=== PATIENT | female | born 1975 | race African-American/Black ===

== ENCOUNTER 2018-02-06 16:27 | Emergency (ER) | payer SELFPAY ==
--- NOTE | 2018-02-06 17:41 | RAD ---
RIGHT FOOT THREE VIEWS: 02/06/18 HISTORY: Foot pain after injury. Calcaneal spurs are present. There is no signs of fracture or dislocation. IMPRESSION: No evidence of fracture. POS: [facility]
--- NOTE | 2018-02-06 17:42 | RAD ---
RIGHT KNEE FOUR VIEWS: 02/06/18 HISTORY: Knee injury. There are arthritic changes in the knee. There is degenerative spur formation and some mild medial co mpartment narrowing. There is also some mild patellofemoral spur formation. There is no signs of fra cture. IMPRESSION: No evidence of acute injury. Moderate arthritic changes. POS: [facility]
== END 2018-02-06 18:49 | disposition left against medical advice (07) ==
LOC: ERS 16:27
DX: Z53.21 Procedure and treatment not carried out due to patient leaving prior to being seen by health care provider (principal)

== ENCOUNTER 2018-03-31 23:28 | Emergency (ER) | payer SELFPAY ==
[2018-04-01 00:18] LABS: #Eosinphils 0.2 thou/uL (0.0-0.7); #Lymphocytes 2.7 thou/uL (1.20-3.40); #Monocytes 0.3 thou/uL (0.11-0.59); %Basophils 0.6 % (0.0-1.0); %Eosinophils 2.8 % (0.0-10.0); %Lymphocytes 32.6 % (21.0-51.0); %Monocytes 3.2 % (0.0-10.0); %Neutrophils 60.9 % (42.0-75.0); Hemoglobin 11.7 g/dL (12.0-16.0); Mean Corpuscular HGB CONC 30.9 g/dL (32.0-36.0); Mean Corpuscular Hemoglobin 23.3 pg (27.0-31.0); Mean Corpuscular Volume 75.4 fL (78.0-98.0); Mean Platelet Volume 11.5 fL (7.4-10.4); Platelet Count 216 thou/uL (130-400); RBC Distribution Width 15.9 % (11.5-14.5); Red Blood Cell (RBC) Count 5.02 mill/uL (4.20-5.40); White Blood Cell (WBC) Count 8.2 thou/uL (4.8-10.8)
[2018-04-01] MEDS ORDERED: Nitroglycerin 2% Ointment 1 INCH/1 GM Packet ONE (00:24)
[2018-04-01] MEDS ORDERED: Furosemide 40 MG/4 ML VIAL ONE (00:24)
[2018-04-01 00:40] LABS: ALT (SGPT) 13 U/L (8-55); AST (SGOT) 15 U/L (5-34); Albumin 3.5 g/dL (3.5-5.0); Alkaline Phosphatase 70 U/L (40-150); Anion Gap 13 mmol/L (10-20); BUN (Urea Nitrogen) 16 mg/dL (7.0-18.7); Bilirubin, Total 0.2 mg/dL (0.2-1.2); CK (CPK) 105 U/L (29-168); Calc. Creatinine Clearance 0 mL/min (70-130); Calcium 8.9 mg/dL (7.8-10.44); Carbon Dioxide 23 mmol/L (22-29); Chloride 108 mmol/L (98-107); Estimated GFR-MDRD Greater than 90; Globulin 3.5 g/dL (2.4-3.5); Glucose 127 mg/dL (70-105); Lipase 37 U/L (8-78); Potassium 3.7 mmol/L (3.5-5.1); Sodium 140 mmol/L (136-145)
[2018-04-01 00:42] LABS: CKMB 1.4 ng/mL (0-6.6); Troponin I Less than 0.010 ng/mL (< 0.028)
--- NOTE | 2018-04-01 07:10 | RAD ---
AP VIEW CHEST: 03/31/2018 HISTORY: Dyspnea. Shortness of breath. COMPARISON: 01/29/2017 FINDINGS: AP view chest demonstrates mild cardiomegaly. Mild pulmonary vascular congestion is seen. No eviden ce of effusions, pneumonia, or pneumothorax is seen. IMPRESSION: Cardiomegaly and pulmonary vascular congestion; otherwise, unremarkable anterior-posterior view chest . POS: [facility]
--- NOTE | 2018-04-04 11:33 | EKG ---
Test Reason : SOB Blood Pressure : / mmHG Vent. Rate : 059 BPM Atrial Rate : 059 BPM P-R Int : 172 ms QRS Dur : 112 ms QT Int : 450 ms P-R-T Axes : 028 -20 054 degrees QTc Int : 445 ms Sinus bradycardia Cannot rule out Anterior infarct , age undetermined Abnormal ECG Confirmed by ROSALVA SETHI, DOMINIQUE ([id number]), photographic editor JUSTYNA PICKENS ([id number]) on 04/04/2018 11:32:56 AM Referred By: Confirmed By:DOMINIQUE BLACKWELL MD
== END 2018-04-01 01:18 | disposition home or self-care (01) ==
LOC: ERS 23:28
DX: I11.0 Hypertensive heart disease with heart failure (principal); I50.9 Heart failure, unspecified; J44.9 Chronic obstructive pulmonary disease, unspecified; F17.210 Nicotine dependence, cigarettes, uncomplicated
CPT/HCPCS: 36415; 71045; 80053; 82550; 82553; 83690; 83880; 84484; 85025; 85379; 93005; 96374; J1940

== ENCOUNTER 2018-06-08 22:49 | Observation (INO) | payer SELFPAY ==
--- NOTE | 2018-06-08 23:24 | RAD ---
FRONTAL RADIOGRAPH CHEST: 06/08/2018 HISTORY: Chest pain. COMPARISON: 03/31/2018 FINDINGS: The lungs are clear. The heart and mediastinal contour is unremarkable. IMPRESSION: No acute findings. POS: [facility]
[2018-06-08 23:51] LABS: Hemoglobin 12.7 g/dL (12.0-16.0); Mean Corpuscular HGB CONC 30.8 g/dL (32.0-36.0); Mean Corpuscular Hemoglobin 22.1 pg (27.0-31.0); Mean Corpuscular Volume 71.9 fL (78.0-98.0); Mean Platelet Volume 11.8 fL (7.4-10.4); Platelet Count 268 thou/uL (130-400); RBC Distribution Width 16.5 % (11.5-14.5); Red Blood Cell (RBC) Count 5.73 mill/uL (4.20-5.40); White Blood Cell (WBC) Count 12.5 thou/uL (4.8-10.8)
[2018-06-09 00:06] LABS: #Eosinphils 0.3 thou/uL (0.0-0.7); #Lymphocytes 3.5 thou/uL (1.20-3.40); #Monocytes 0.6 thou/uL (0.11-0.59); #Neutrophils 8.1 thou/uL (1.40-6.50); %Basophils 0.4 % (0.0-1.0); %Eosinophils 2.2 % (0.0-10.0); %Lymphocytes 28.1 % (21.0-51.0); %Monocytes 4.6 % (0.0-10.0); %Neutrophils 64.8 % (42.0-75.0); Anisocytosis SLIGHT = 6-15 cells (100X) (0-5/hpf); Hypochromia SLIGHT = 6-15 cells (100X) (0-5/hpf); Large Platelets SLIGHT; MDiff Complete? YES; Microcytosis SLIGHT = 6-15 cells (100X) (0-5/hpf); PLT Morphology Comment Appears Adequate
[2018-06-09] MEDS ORDERED: Morphine 4 MG/ML VIAL ONE (00:08)
[2018-06-09] MEDS ORDERED: Nitroglycerin 0.4 MG TAB (25 Tab Bottle) ONE (00:08)
[2018-06-09 00:09] LABS: ALT (SGPT) 16 U/L (8-55); AST (SGOT) 15 U/L (5-34); Albumin 3.9 g/dL (3.5-5.0); Alkaline Phosphatase 74 U/L (40-150); Anion Gap 13 mmol/L (10-20); BUN (Urea Nitrogen) 21 mg/dL (7.0-18.7); Bilirubin, Total 0.3 mg/dL (0.2-1.2); Calc. Creatinine Clearance 0 mL/min (70-130); Calcium 9.6 mg/dL (7.8-10.44); Carbon Dioxide 24 mmol/L (22-29); Chloride 106 mmol/L (98-107); Estimated GFR-MDRD Greater than 90; Globulin 4.5 g/dL (2.4-3.5); Glucose 122 mg/dL (70-105); Potassium 4.1 mmol/L (3.5-5.1); Protein, Total 8.4 g/dL (6.0-8.3); Sodium 139 mmol/L (136-145)
[2018-06-09 00:13] LABS: CKMB 0.7 ng/mL (0-6.6); Troponin I Less than 0.010 ng/mL (< 0.028)
[2018-06-09 03:16] LABS: Troponin I Less than 0.010 ng/mL (< 0.028)
[2018-06-09] MEDS ORDERED: Acetaminophen 500 MG TAB ONE (04:12)
[2018-06-09] MEDS ORDERED: Labetalol HCl 100 MG/20 ML VIAL ONE (05:40)
[2018-06-09 06:38] LABS: Troponin I Less than 0.010 ng/mL (< 0.028)
[2018-06-09] MEDS ORDERED: Nitroglycerin 0.4 MG TAB (25 Tab Bottle) PO PRN (09:09)
[2018-06-09] MEDS ORDERED: Ondansetron ODT 4 MG TAB PO PRN (09:09)
[2018-06-09 09:46] LABS: Cardiac Risk 3.2 (Less than 4.5)
[2018-06-09] MEDS ORDERED: Enoxaparin Sodium 40 MG/0.4 ML SYRINGE ONE (09:51)
[2018-06-09] MEDS ORDERED: HYDROcodone/Acetaminophen 5/325 mg Tablet ONE (09:51)
[2018-06-09] MEDS ORDERED: Aspirin 325 MG TAB ONE (09:51)
[2018-06-09] MEDS ORDERED: Ondansetron ODT 4 MG TAB ONE (09:51)
[2018-06-09] MEDS ORDERED: Famotidine 20 MG TAB ONE (09:52)
--- NOTE | 2018-06-09 09:52 | CT ---
CTA THORAX WITH CONTRAST: (Computed Tomographic Angiography, chest(noncoronary) with contrast material, and image postprocessin g) (PE protocol) DATE: 06-09-18 TIME: 9:30 a.m. HISTORY: 43-year-old female with dyspnea and chest pain. TECHNIQUE: IV injection of iodinated contrast: Isovue Scan acquisition timing attempted to coincide with iodinated contrast bolus reaching maximal density in pulmonary arteries. 3D MIP reconstructions. FINDINGS: IV contrast is greatest in the thoracic aorta, where there is no aneurysm of dissection. Unfortunatel y, there is almost no IV contrast in the pulmonary arteries. The visualized lung mckeon are grossly c lear. No pleural effusion or pneumothorax. Borderline or mild cardiomegaly. No pericardial effusion. No mediastinal or hilar lymphadenopathy. IMPRESSION: Nondiagnostic for pulmonary thromboembolism due to missed timing of IV contrast bolus and scanning. elan POS: [facility]
--- NOTE | 2018-06-09 10:10 | HP ---
PRIMARY CARE PHYSICIAN: Through the [facility]. CHIEF COMPLAINT: Chest pain. HISTORY OF PRESENT ILLNESS: Ms. Rodriguez is a very pleasant 43-year-old female who has a history of hypertension. She was in her usual state of health until yesterday around 3:30 when she began having pain in the left side of her chest. She says she had just laid down. This was at rest. She says it was like a squeezing, stabbing pain that went down her right arm and her right side. She also noted some shortness of breath as well, but no nausea, no vomiting, no diaphoresis. She says that she could barely walk from her room to her bathroom without becoming extremely short of breath and as noted extreme dyspnea on exertion. She also noted some swelling in her legs which started approximately actually on Friday and she noticed more swelling and a little bit more pain in the right leg than on the left. She says that when she came to the emergency room, they gave her some nitroglycerin, which helped relieve her symptoms and currently she now just has some soreness in her right side of her chest. She denies any cough or congestion. She denies any heartburn or reflux symptoms. She denies any heavy lifting or straining. REVIEW OF SYSTEMS: All systems were reviewed and are negative except for that mentioned in the history of present illness. PAST MEDICAL HISTORY: Hypertension and iron deficiency anemia. PAST SURGICAL HISTORY: She has had a and a cholecystectomy. ALLERGIES: BACTRIM, BENADRYL and PHENERGAN. SOCIAL HISTORY: She is . She has 3 children. She occasionally smokes. Denies any alcohol use. FAMILY HISTORY: Significant for cerebrovascular disease in her mother. MEDICATIONS: Furosemide 80 mg daily and lisinopril, but she is not sure of the dose. PHYSICAL EXAMINATION: GENERAL: She is alert and oriented. She appears to be in no acute distress. She is well-developed, well-nourished. She is morbidly obese. VITAL SIGNS: Blood pressure was initially 184/129, currently 157/94, heart rate 70, respiratory rate of 20, temperature is 98.6. HEENT: Her pupils are equal, round, and reactive. Extraocular muscles are intact. Her sclerae are anicteric. Throat; there is no erythema, no exudates. NECK: No adenopathy, no bruits. LUNGS: Clear to auscultation. There is no wheezing, no rales, no rhonchi. CARDIOVASCULAR: She has a normal S1 and S2. No S3 or S4. No murmurs, clicks or rubs. ABDOMEN: Obese, it is soft, it is nontender, nondistended. Positive for bowel sounds. There is no rebound, no guarding, no organomegaly. EXTREMITIES: There is no edema. NEUROLOGICALLY: Her exam is grossly nonfocal with her muscle strength being 5/ 5 in both her upper and lower extremities and her cranial nerves are intact. SKIN AND INTEGUMENT: There are no skin changes, no rash. LABORATORY AND X-RAY FINDINGS: Her EKG by my reading is sinus rhythm, the rate is 87. There was some voltage criteria for LVH. This is by my reading. She also had a chest x-ray, her heart size was normal. There was no evidence of any increase in pulmonary vascular markings. No effusion, also by my reading. Lab results; sodium was 139, potassium 4.1, chloride is 106, CO2 is 24, BUN of 21, creatinine 0.82, glucose is 122. Troponin is less than 0.010. White blood cell count is 12.5, hemoglobin 12.7, hematocrit is 41.2, platelet count was 268. ASSESSMENT AND PLAN: This is a pleasant 43-year-old female who presents to the emergency room with atypical chest pain. She says it was on the right side and it was more or less a squeezing pain. The most salient feature was the shortness of breath that was associated with it and given this and her obesity as well as general sedentary lifestyle, we will go ahead and get a CT angiogram to rule out pulmonary embolism first and if this is negative, we will get a regular exercise stress test. It is also noted that she has had a nuclear stress test a few years back for similar symptoms. Will check a lipid panel as well and further recommendations based on these results. MARBIN
[2018-06-09] MEDS ORDERED: ISOVUE-370 76%-LOCM 1 ML ONE (12:00)
[2018-06-09 13:01] VITALS: BMI 64.8
[2018-06-09] MEDS ORDERED: hydrALAZINE 20 MG/ML VIAL SLOW IVP PRN (13:50)
[2018-06-09] MEDS: Aspirin 325 MG TAB PO SCH (14:03)
[2018-06-09] MEDS: Famotidine 20 MG TAB PO SCH ×3 (14:03→20:43)
[2018-06-09] MEDS: Enoxaparin Sodium 40 MG/0.4 ML SYRINGE SC SCH (14:03)
[2018-06-09 14:04] LABS: #Eosinphils 0.2 thou/uL (0.0-0.7); #Lymphocytes 2.9 thou/uL (1.20-3.40); #Monocytes 0.5 thou/uL (0.11-0.59); #Neutrophils 6.5 thou/uL (1.40-6.50); %Basophils 0.2 % (0.0-1.0); %Eosinophils 1.5 % (0.0-10.0); %Lymphocytes 28.5 % (21.0-51.0); %Monocytes 4.6 % (0.0-10.0); %Neutrophils 65.2 % (42.0-75.0); Hemoglobin 12.5 g/dL (12.0-16.0); Mean Corpuscular HGB CONC 31.8 g/dL (32.0-36.0); Mean Corpuscular Volume 72.3 fL (78.0-98.0); Mean Platelet Volume 11.9 fL (7.4-10.4); Platelet Count 252 thou/uL (130-400); RBC Distribution Width 16.4 % (11.5-14.5); Red Blood Cell (RBC) Count 5.46 mill/uL (4.20-5.40)
[2018-06-09 14:08] LABS: BHCG - Serum Negative (NEGATIVE); Pregs Control Background? CLEAR/WHITE (CLR/WHITE); Pregs Control Bar Appear? YES (CONTROL BAR)
[2018-06-09 14:09] LABS: PTT 28.6 SEC (22.9-36.1); Prothrombin Time 13.3 SEC (12.0-14.7)
[2018-06-09] MEDS: Nitroglycerin 2% Ointment 1 INCH/1 GM Packet TOP SCH ×3 (14:14→20:45)
[2018-06-09 14:19] LABS: CKMB 0.5 ng/mL (0-6.6); Troponin I Less than 0.010 ng/mL (< 0.028)
[2018-06-09] MEDS: Acetaminophen 325 MG TAB PO PRN ×2 (14:34→20:31)
[2018-06-09 14:36] LABS: CK (CPK) 60 U/L (29-168)
[2018-06-09 14:38] LABS: ALT (SGPT) 84 U/L (8-55); AST (SGOT) 113 U/L (5-34); Albumin 3.9 g/dL (3.5-5.0); Alkaline Phosphatase 116 U/L (40-150); Anion Gap 16 mmol/L (10-20); BUN (Urea Nitrogen) 20 mg/dL (7.0-18.7); Bilirubin, Total 0.8 mg/dL (0.2-1.2); Calc. Creatinine Clearance 273 mL/min (70-130); Calcium 9.1 mg/dL (7.8-10.44); Carbon Dioxide 21 mmol/L (22-29); Chloride 104 mmol/L (98-107); Estimated GFR-MDRD Greater than 90; Globulin 3.9 g/dL (2.4-3.5); Glucose 100 mg/dL (70-105); Potassium 4.2 mmol/L (3.5-5.1); Protein, Total 7.8 g/dL (6.0-8.3); Sodium 137 mmol/L (136-145)
[2018-06-09] MEDS ORDERED: Regadenoson 0.4 MG/5 ML SYRINGE ONE (15:25)
[2018-06-09 15:47] LABS: Pregnancy Test - Urine (BHCG) Negative (Negative); Pregu Control Background? CLEAR/WHITE (CLR/WHITE); Pregu Control Bar Appear? YES (CONTROL BAR)
[2018-06-09 15:54] LABS: Amphetamine Detected (NotDetected); Barbiturates Screen Not Detected (NotDetected); Benzodiazepine Screen Not Detected (NotDetected); Cocaine Metabolite Screen Not Detected (NotDetected); Medtox Control Line Valid? VALID (VALID); Medtox Reader # READER 1; Methadone Not Detected (NotDetected); Methamphetamine Detected (NotDetected); Opiate Screen Detected (NotDetected); Oxycodone Screen Not Detected (NotDetected); Phencyclidine (PCP) Not Detected (NotDetected); THC/Cannabinoid Screen Not Detected (NotDetected); Tricyclic Screen Not Detected (NotDetected)
--- NOTE | 2018-06-09 17:22 | EKG ---
Test Reason : Blood Pressure : / mmHG Vent. Rate : 066 BPM Atrial Rate : 066 BPM P-R Int : 176 ms QRS Dur : 112 ms QT Int : 464 ms P-R-T Axes : 038 -16 028 degrees QTc Int : 486 ms Normal sinus rhythm Prolonged QT Abnormal ECG When compared with ECG of 08-JUN-2018 22:54, (Unconfirmed) No significant change was found Confirmed by PAUL SETHI, . SAlex ([id number]) on 06/09/2018 5:21:28 PM Referred By: TARIK Confirmed By:DR. Rufina MILLER MD
--- NOTE | 2018-06-09 17:49 | CT ---
CT BRAIN WITHOUT CONTRAST: Date: 06/09/18 HISTORY: Headache, new onset slurred speech. FINDINGS: Comparison made with exam of 10/30/16. No evidence of acute infarct, hemorrhage, midline shift, or abnormal extra-axial fluid collections ar e seen. The ventricular size is normal and the basilar cisterns are patent. The bony calvarium is int act. The visualized paranasal sinuses and mastoid air cells are well aerated. 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 IMPRESSION: No CT evidence of acute intracranial process. Report called over the phone to ABDULKADIR Finnegan, at 1404 hours. CODE CR. POS: [facility]
--- NOTE | 2018-06-09 18:08 | PDOC.EVN ---
Event Note - Event Note Event Note: Patient had the sudden onset of slurred speech, and decreased level of consciousness NIH was reported to be a 7- a code green was called, due to possible stroke alert. A stat CT scan of the brain was performed which was negative. While in CT-scan her NIH returned to 0. I came to see her later this afternoon, and she is completely back to baseline. Carotid dopplers, and Echo have been ordered. Will also monitor and adjust her blood pressure medications as needed. Will re-evaluate in the AM.
--- NOTE | 2018-06-09 19:04 | ULT ---
CAROTID ULTRASOUND WITH ESPARZA SCALE AND DOPPLER DUPLEX COLOR FLOW IMAGING SPECTRAL ANALYSIS PERFORMED: 06/09/18 CLINICAL INDICATION: TIA. FINDINGS: There is minimal atherosclerotic calcification of the carotid arteries. PEAK SYSTOLIC VELOCITY (CM/S): Right CCA 108 Left CCA 143 Right ICA 83 Left ICA 82 There is antegrade flow within the visualized bilateral vertebral arteries. IMPRESSION: 1. No hemodynamically significant stenosis of the right internal carotid artery. 2. No hemodynamically significant stenosis of the left internal carotid artery. POS: [facility]
[2018-06-10] MEDS: Acetaminophen 325 MG TAB PO PRN (02:04)
[2018-06-10] MEDS: HYDROcodone/Acetaminophen 5/325 mg Tablet PO PRN ×2 (03:37→10:45)
[2018-06-10] MEDS: Nitroglycerin 2% Ointment 1 INCH/1 GM Packet TOP SCH (04:23)
[2018-06-10 06:20] LABS: #Basophils 0.1 thou/uL (0.0-0.2); #Eosinphils 0.3 thou/uL (0.0-0.7); #Lymphocytes 2.9 thou/uL (1.20-3.40); #Monocytes 0.4 thou/uL (0.11-0.59); %Basophils 0.6 % (0.0-1.0); %Eosinophils 2.9 % (0.0-10.0); %Lymphocytes 30.1 % (21.0-51.0); %Monocytes 4.5 % (0.0-10.0); Hemoglobin 11.5 g/dL (12.0-16.0); Mean Corpuscular HGB CONC 31.3 g/dL (32.0-36.0); Mean Corpuscular Hemoglobin 22.7 pg (27.0-31.0); Mean Corpuscular Volume 72.6 fL (78.0-98.0); Mean Platelet Volume 11.8 fL (7.4-10.4); Platelet Count 229 thou/uL (130-400); RBC Distribution Width 16.4 % (11.5-14.5); Red Blood Cell (RBC) Count 5.06 mill/uL (4.20-5.40); White Blood Cell (WBC) Count 9.7 thou/uL (4.8-10.8)
[2018-06-10 06:30] LABS: Anion Gap 12 mmol/L (10-20); BUN (Urea Nitrogen) 18 mg/dL (7.0-18.7); Calc. Creatinine Clearance 283 mL/min (70-130); Calcium 9.2 mg/dL (7.8-10.44); Carbon Dioxide 24 mmol/L (22-29); Chloride 106 mmol/L (98-107); Estimated GFR-MDRD Greater than 90; Glucose 103 mg/dL (70-105); Potassium 3.8 mmol/L (3.5-5.1); Sodium 138 mmol/L (136-145)
[2018-06-10] MEDS ORDERED: Lisinopril 10 MG TAB PO SCH (09:00)
[2018-06-10] MEDS: Enoxaparin Sodium 40 MG/0.4 ML SYRINGE SC SCH (10:44)
[2018-06-10] MEDS: Aspirin 325 MG TAB PO SCH (10:45)
[2018-06-10] MEDS: Famotidine 20 MG TAB PO SCH (10:45)
--- NOTE | 2018-06-10 11:23 | PDOC.PN ---
- Subjective Encounter Start Date: 06/10/18 Encounter Start Time: 11:21 Ms. Rodriguez was seen today in follow-up of chest pain. She does not have any new complaints this morning. - Objective Resuscitation Status - Order Detail: 06/09/18 12:13 Resuscitation Status Routine Resuscitation Status: FULL: Full Resuscitation Discussed with: per prior order MAR Reviewed: Yes Vital Signs & Weight: Vital Signs (12 hours) Temp Pulse Resp BP Pulse Ox 06/10/18 07:53 98.0 F 74 16 124/72 100 06/10/18 06:00 96 06/10/18 03:39 98.4 F 78 16 119/68 97 06/09/18 23:56 98.2 F 62 18 134/61 96 Weight Weight 413 lb 4.8 oz I&O: 06/09/18 06/10/18 06/11/18 06:59 06:59 06:59 Intake Total 660 Output Total 300 Balance 360 Result Diagrams: 06/10/18 05:57 06/10/18 05:57 Additional Labs: Accuchecks 06/09/18 06/09/18 17:21 13:33 POC Glucose 115 H 100 Phys Exam - Physical Examination HEENT: PERRLA Respiratory: no wheezing, no rales, no rhonchi, clear to auscultation bilateral Cardiovascular: RRR, no significant murmur, no rub Gastrointestinal: soft, non-tender, no distention, positive bowel sounds Musculoskeletal: no edema Dx/Plan (1) Chest pain Code(s): R07.9 - CHEST PAIN, UNSPECIFIED Status: Acute (2) Hypertension Code(s): I10 - ESSENTIAL (PRIMARY) HYPERTENSION Status: Chronic (3) Morbid (severe) obesity due to excess calories Code(s): E66.01 - MORBID (SEVERE) OBESITY DUE TO EXCESS CALORIES Status: Chronic - Plan * Chest pain- likely non-cardiac * ? TIA- will add simvastatin, and low dose aspirin * Discussed healthy lifestyle and weight loss * Stable for discharge home.
[2018-06-10] MEDS ORDERED: Ferrous Sulfate 325 MG TAB PO SCH (12:00)
[2018-06-10 12:17] VITALS: BP 137/76; TEMP 98.2
--- NOTE | 2018-06-10 12:50 | NM ---
CARDIAC SPECT WITH EF AND WALL MOTION: HISTORY: A 43-year-old female with a history of chest pain, history of congestive heart failure, COPD, hyperte nsion, and smoking history. A LexiScan sestamibi study is performed. The patient was injected with 32.0 mCi Technetium 99m sestamibi intravenously for stress images and t he patient was injected with 33.0 mCi Technetium 99m sestamibi intravenously for resting images. Multiple SPECT images in the short axis, vertical long axis, and horizontal long axis demonstrate no scan evidence for infarct or ischemia. TID 0.76. LHR 0.41. EDV 153 mL. Ejection fraction is 64%. MYOCARDIAL PERFUSION WALL MOTION: Wall motion is unremarkable. IMPRESSION: End-diastolic volume 153 mL. No scan evidence for overt infarct or ischemia. POS: [facility]
--- NOTE | 2018-06-10 14:17 | STRESS ---
Acquisition Time: 2018-06-10 08:56:59 Total Exercise Time: 00:01:00 Test Indications: CHEST PAIN Medications: Protocol: LEXISCAN Max HR: 108 BPM 61% of Pred: 176 BPM Max BP: 124/098 mmHG Max Work Load: 1.0 METS THE PATIENT WAS INJECTED WITH LEXISCAN. SHE DID NOT DEVELOP CHEST PAIN. THERE WAS NO SIGNIFICANT ST DEPRESSION. AWAIT NUCLEAR IMAGES FOR DEFINITIVE DIAGNOSIS. Confirmed by JUANCARLOS BLAS ([id number]), city editor CRISTOFER ORTIZ ([id number]) on 06/10/2018 2:16:36 PM Referred By: MD Shivam HILL Confirmed By:JUANCARLOS BLAS
--- NOTE | 2018-06-10 14:36 | DIS ---
DATE OF ADMISSION: 06/09/2018 DATE OF DISCHARGE: 06/10/2018 PRIMARY CARE: Through the [facility]. DISCHARGE DISPOSITION: Home. PRIMARY DISCHARGE DIAGNOSES: 1. Chest pain, probable noncardiac. 2. Hypertension. 3. Morbid obesity. 4. Iron deficiency anemia. DISCHARGE MEDICATIONS: Include: 1. Aspirin 81 mg p.o. daily. 2. Simvastatin 10 mg q.h.s. 3. Iron sulfate 325 mg q.i.d. 4. Lisinopril 10 mg daily. 5. Lasix 80 mg daily. PROCEDURES DONE DURING ADMISSION: The patient had a CT angiogram of the chest. It was nondiagnostic for PE due to mistiming of the IV bolus and scanning, but no other abnormalities were seen such as, there was no pericardial effusion. No mediastinal or hilar adenopathy. No infiltrates. The patient had a nuclear stress test, which was negative for any reversible ischemia. She had a CT scan of the brain, which showed no evidence of any acute intracranial process. She had bilateral carotid Dopplers showing no evidence of any hemodynamic stenosis and an echocardiogram showing moderate concentric left ventricular hypertrophy and the ejection fraction was estimated at 55% to 60%. CODE STATUS: Full code. ALLERGIES: TO DIPHENHYDRAMINE, PROMETHAZINE, SULFA, AND TRIMETHOPRIM. HOSPITAL COURSE: Ms. Rodriguez is a very pleasant 43-year-old female, who presented to the emergency room with complaints of chest pain. She stated that it was right-sided, and it was present at rest, and was associated with some dyspnea. She had a negative D-dimer, but we went ahead and tried a CTA. Unfortunately, the IV contrast bolus had poor timing, but with a negative D-dimer, this essentially rules out pulmonary embolism. We were able to determine there were no other obvious structural abnormalities in the chest. Nuclear stress test was negative. The patient had an episode of dysarthria during her hospital stay and for this reason, a Aleida Doss was called and stat CT scan was obtained. This was negative. Carotid Dopplers and echo were also unremarkable, except for some mild concentric LVH on the echo. For this reason, we will continue her on the low-dose aspirin and add a statin to her regimen, and have close outpatient followup with her primary care physician. We also discussed healthy lifestyle and weight loss, as the patient's BMI was 64.7, and she is 5 feet 7 inches and 413 pounds, and she voiced understanding. Job ID: [id number]
[2018-06-11] MEDS ORDERED: Furosemide 40 MG TAB PO SCH (09:00)
--- NOTE | 2018-06-13 16:19 | EKG ---
Test Reason : Blood Pressure : / mmHG Vent. Rate : 087 BPM Atrial Rate : 087 BPM P-R Int : 168 ms QRS Dur : 104 ms QT Int : 388 ms P-R-T Axes : 033 -26 059 degrees QTc Int : 466 ms Normal sinus rhythm Voltage criteria for left ventricular hypertrophy Abnormal ECG Confirmed by CATE ANN ([id number]), photography editor JAYLEEN OVIEDO ([id number]) on 06/13/2018 4:18:59 PM Referred By: Confirmed By:CATE ANN
== END 2018-06-10 13:16 | disposition home or self-care (01) ==
LOC: ERS 22:49 → ERHOLD 06-09 00:56 → 2SW 06-09 11:59
PROVIDERS: ADMIT Hospitalist; ATTEND Hospitalist
DX: R07.89 Other chest pain (principal); I10 Essential (primary) hypertension; D50.9 Iron deficiency anemia, unspecified; F17.200 Nicotine dependence, unspecified, uncomplicated; R47.1 Dysarthria and anarthria; E66.01 Morbid (severe) obesity due to excess calories; Z68.44 Body mass index [BMI] 60.0-69.9, adult; Z79.899 Other long term (current) drug therapy; Z88.2 Allergy status to sulfonamides; Z88.8 Allergy status to other drugs, medicaments and biological substances
CPT/HCPCS: 36415; 36416; 70450; 71045; 71275; 78452; 80048; 80053; 80061; 80306; 81025; 82553; 83690; 83880; 84484; 84703; 85025; 85379; 85610; 85730; 90471; 90686; 93005; 93010; 93017; 93306; 93880; 94760; 96372; 96374; 96375; 99406; A9500; G0008; G0378; J1650; J2270; J2785; Q0162

== ENCOUNTER 2018-07-29 14:36 | Emergency (ER) | payer SELFPAY ==
[2018-07-29] MEDS ORDERED: Ketorolac Tromethamine 30 MG/ML VIAL ONE (16:25)
== END 2018-07-29 16:41 | disposition home or self-care (01) ==
LOC: ERS 14:36
DX: M54.41 Lumbago with sciatica, right side (principal); D64.9 Anemia, unspecified; J44.9 Chronic obstructive pulmonary disease, unspecified; I11.0 Hypertensive heart disease with heart failure; I50.9 Heart failure, unspecified; F17.210 Nicotine dependence, cigarettes, uncomplicated; Z79.899 Other long term (current) drug therapy; Z79.82 Long term (current) use of aspirin
CPT/HCPCS: 96372; J1885

== ENCOUNTER 2018-08-29 14:22 | Observation (INO) | payer SELFPAY ==
[2018-08-29 14:53] LABS: Hemoglobin 11.5 g/dL (12.0-16.0); Mean Corpuscular HGB CONC 30.5 g/dL (32.0-36.0); Mean Corpuscular Hemoglobin 22.7 pg (27.0-31.0); Mean Corpuscular Volume 74.4 fL (78.0-98.0); Mean Platelet Volume 12.2 fL (7.4-10.4); Platelet Count 217 thou/uL (130-400); RBC Distribution Width 16.7 % (11.5-14.5); Red Blood Cell (RBC) Count 5.07 mill/uL (4.20-5.40); White Blood Cell (WBC) Count 9.2 thou/uL (4.8-10.8)
[2018-08-29] MEDS ORDERED: Nitroglycerin 2% Ointment 1 INCH/1 GM Packet ONE (15:12)
[2018-08-29 15:15] LABS: ALT (SGPT) 15 U/L (8-55); AST (SGOT) 16 U/L (5-34); Albumin 3.7 g/dL (3.5-5.0); Alkaline Phosphatase 74 U/L (40-150); Anion Gap 11 mmol/L (10-20); BUN (Urea Nitrogen) 15 mg/dL (7.0-18.7); Bilirubin, Total 0.5 mg/dL (0.2-1.2); CK (CPK) 244 U/L (29-168); Calc. Creatinine Clearance 0 mL/min (70-130); Carbon Dioxide 24 mmol/L (22-29); Chloride 107 mmol/L (98-107); Estimated GFR-MDRD Greater than 90; Globulin 3.7 g/dL (2.4-3.5); Glucose 115 mg/dL (70-105); Potassium 3.3 mmol/L (3.5-5.1); Protein, Total 7.4 g/dL (6.0-8.3); Sodium 139 mmol/L (136-145)
[2018-08-29 15:22] LABS: #Basophils 0.1 thou/uL (0.0-0.2); #Eosinphils 0.3 thou/uL (0.0-0.7); #Lymphocytes 2.6 thou/uL (1.20-3.40); #Monocytes 0.4 thou/uL (0.11-0.59); #Neutrophils 5.8 thou/uL (1.40-6.50); %Basophils 0.6 % (0.0-1.0); %Eosinophils 2.9 % (0.0-10.0); %Lymphocytes 28.6 % (21.0-51.0); %Monocytes 4.4 % (0.0-10.0); %Neutrophils 63.5 % (42.0-75.0); Anisocytosis SLIGHT = 6-15 cells (100X) (0-5/hpf); Hypochromia SLIGHT = 6-15 cells (100X) (0-5/hpf); Large Platelets SLIGHT; MDiff Complete? YES; Microcytosis SLIGHT = 6-15 cells (100X) (0-5/hpf); Platelet Morphology Comment Appears Adequate
--- NOTE | 2018-08-29 16:00 | RAD ---
PORTABLE AP CHEST X-RAY: 08/29/18 HISTORY: Chest pain with difficulty breathing. COMPARISON: 06/08/18. FINDINGS: The cardiac silhouette is magnified by projection but does appear mildly enlarged on this exam. Pulmo nary vasculature is within normal limits. The lungs are clear. The osseous structures are intact. IMPRESSION: 1. Mild cardiomegaly. 2. No acute cardiopulmonary process. POS: [facility]
[2018-08-29] MEDS ORDERED: Acetaminophen 500 MG TAB ONE (17:02)
[2018-08-29] MEDS ORDERED: Morphine 4 MG/ML VIAL ONE (18:45)
[2018-08-29] MEDS ORDERED: Ondansetron ODT 4 MG TAB PO PRN (20:17)
[2018-08-29] MEDS ORDERED: Ondansetron PF 4 MG/2 ML Vial IVP PRN (20:17)
[2018-08-29] MEDS ORDERED: Simvastatin 5 MG TAB PO SCH (21:00)
[2018-08-29] MEDS ORDERED: Aspirin Chewable 81 MG TAB ONE (21:04)
[2018-08-29 21:23] VITALS: BMI 64.3
[2018-08-29] MEDS: Ferrous Sulfate 325 MG TAB PO SCH (21:39)
[2018-08-29] MEDS: Acetaminophen 325 MG TAB PO PRN (21:39)
[2018-08-29] MEDS ORDERED: cloNIDine 0.1 MG TAB PO PRN (22:52)
[2018-08-30] MEDS: traMADol HCl 50 MG TAB PO PRN ×2 (02:23→09:25)
[2018-08-30] MEDS: Acetaminophen 325 MG TAB PO PRN (05:52)
--- NOTE | 2018-08-30 06:02 | HP ---
PRIMARY CARE DOCTOR: Sonia Gallagher NP CODE STATUS: Full code. TIME OF EVALUATION: 07:50 p.m. CHIEF COMPLAINT: Chest pain. HISTORY OF PRESENT ILLNESS: A 43-year-old female patient with past medical history of obesity, came to the hospital after having chest pain that started around 11 a.m. with no clear triggers, no alleviating factors. The patient has a history of CHF and she also reported some associated shortness of breath and bilateral leg edema, symptoms were severe, pressure-like, substernal. REVIEW OF SYSTEMS: CONSTITUTIONAL: No fever, chills, or generalized weakness. RESPIRATORY: No cough, sputum production, or shortness of breath. CARDIOVASCULAR: palpitation. GASTROINTESTINAL: No nausea, no vomiting, diarrhea, or abdominal pain. MAILER APPRENTICE: No dizziness, headache, or feeling lightheaded. GENITOURINARY: No burning on urination. EXTREMITIES: The patient has bilateral lower extremities edema. All other systems were reviewed and negative except for the findings mentioned above. PAST MEDICAL HISTORY: Positive for COPD, anemia, hypertension, fluid overload, CHF. PAST SURGICAL HISTORY: History of tubal ligation, cholecystectomy, . PSYCH HISTORY: No previous psych history. SOCIAL HISTORY: No alcohol, no drugs, no tobacco, does not smoke cigarettes. KNOWN ALLERGIES: To Benadryl, Phenergan, and sulfa. REPORTED MEDICATIONS: Unknown. PHYSICAL EXAMINATION: VITAL SIGNS: On presentation, blood pressure 136/77 with heart rate of 71, respiratory rate was 18, temperature 98.5, pain 8/10, oxygen saturation 97% on room air. GENERAL APPEARANCE: The patient is alert, oriented, mild distress due to pain. The patient is morbidly obese. HEENT: Eyes, normal conjunctivae. Moist oral mucosa. Anicteric. No JVD. RESPIRATORY: Bilateral air entry. No rales. No wheezing. Symmetric expansion. CARDIOVASCULAR: Normal rate, regular rhythm. No murmurs. No gallop. Bilateral leg edema. ABDOMEN: Soft. Normal bowel sounds. MUSCULOSKELETAL: Baseline range of motion and strength. No tenderness. SKIN: Warm, intact. No pallor. No rash. No redness. Peripheral pulses are present. Capillary refill seems to be intact. NEURO: No evidence of any new focal weakness. Baseline speech. Cranial nerves seems to be intact. PSYCH: The patient has good mood. No anxiety. Optimal judgment. DIAGNOSTIC STUDIES: EKG; normal sinus rhythm with a rate of 70, AR 182, QRS 114, minimum voltage criteria for LVH. The chest x-ray was reviewed. The patient has mild cardiomegaly, no acute cardiopulmonary process. LABORATORY DATA: Labs are reviewed by myself. White count 9.2, hemoglobin 11.5, MCV 74, platelet count 217. Sodium 139, potassium 3.3, chloride 107, carbon dioxide 24, anion gap 11, BUN 15, creatinine 0.74, GFR greater than 90, glucose 115, calcium 9, total bilirubin 0.5, AST 16, ALT 15, alkaline phosphatase 74. CK 244. Troponin was negative x3. Beta-natriuretic peptide was 33.2. Albumin 3.7, globulin 3.7, albumin to globulin ratio is 1.0. ASSESSMENT AND PLAN: The patient will be placed in the hospital with following medical problems: 1. Chest pain, rule out acute coronary syndrome. Troponin has been negative. We will monitor on tele. The patient has reportedly had a stress test that was negative. On recent records, the test was done on 06/09/2018, likely acute coronary syndrome, we will rule out any other etiology for chest pain including pulmonary embolism. The patient is morbidly obese, we will do Doppler, we will do D-dimer. If positive, we will proceed with CT angio/V/Q depending on possibilities of the test. The patient is morbidly obese. 2. Hypokalemia, potassium 3.3. This is mild, we will monitor, we will reconcile. We will replace electrolytes as needed. 3. Hyperglycemia, 115, could be due to acute physical distress or poor oral glucose tolerance. 4. Obesity. Advised to lose weight. 5. Deep venous thrombosis prophylaxis. Job ID: [id number]
[2018-08-30 06:13] LABS: #Basophils 0.1 thou/uL (0.0-0.2); #Eosinphils 0.3 thou/uL (0.0-0.7); #Lymphocytes 2.5 thou/uL (1.20-3.40); #Monocytes 0.3 thou/uL (0.11-0.59); #Neutrophils 4.2 thou/uL (1.40-6.50); %Basophils 0.8 % (0.0-1.0); %Eosinophils 3.5 % (0.0-10.0); %Lymphocytes 33.8 % (21.0-51.0); %Monocytes 4.7 % (0.0-10.0); %Neutrophils 57.3 % (42.0-75.0); Hemoglobin 10.8 g/dL (12.0-16.0); Mean Corpuscular HGB CONC 31.1 g/dL (32.0-36.0); Mean Corpuscular Hemoglobin 23.5 pg (27.0-31.0); Mean Corpuscular Volume 75.5 fL (78.0-98.0); Mean Platelet Volume 12.3 fL (7.4-10.4); Platelet Count 192 thou/uL (130-400); RBC Distribution Width 16.6 % (11.5-14.5); White Blood Cell (WBC) Count 7.4 thou/uL (4.8-10.8)
[2018-08-30 06:39] LABS: Anion Gap 10 mmol/L (10-20); BUN (Urea Nitrogen) 16 mg/dL (7.0-18.7); Calc. Creatinine Clearance 264 mL/min (70-130); Calcium 8.6 mg/dL (7.8-10.44); Carbon Dioxide 25 mmol/L (22-29); Chloride 107 mmol/L (98-107); Estimated GFR-MDRD Greater than 90; Glucose 99 mg/dL (70-105); Potassium 3.4 mmol/L (3.5-5.1); Sodium 139 mmol/L (136-145)
[2018-08-30] MEDS ORDERED: Lisinopril 10 MG TAB PO SCH (09:00)
[2018-08-30] MEDS ORDERED: Furosemide 40 MG/4 ML VIAL SLOW IVP SCH (09:00)
[2018-08-30] MEDS ORDERED: Aspirin Chewable 81 MG TAB PO SCH (09:00)
[2018-08-30] MEDS ORDERED: Enoxaparin Sodium 40 MG/0.4 ML SYRINGE SC SCH (09:00)
[2018-08-30] MEDS: Ferrous Sulfate 325 MG TAB PO SCH ×2 (09:18→11:42)
--- NOTE | 2018-08-30 10:08 | ULT ---
ULTRASOUND WITH DOPPLER DUPLEX VENOUS LOWER EXTREMITY BILATERAL: CPT: 36936 ICD-10-PCS: B54D INDICATION: Bilateral lower extremity pain and edema. TECHNIQUE: Color flow Doppler, spectral waveform analysis of pulsed Doppler, and pérez-scale imaging with rhianna alma and augmentation, were used to evaluate the bilateral common femoral, femoral, popliteal, golf course keeper ior tibial, and superficial femoral, veins; and the proximal portions of the profunda femoral and gre ater saphenous, veins. FINDINGS: There is appropriate compressibility and flow within the imaged deep vein system of the bilateral low er extremities. IMPRESSION: No deep venous thrombosis. POS: [facility]
--- NOTE | 2018-08-30 13:06 | PDOC.PN ---
- Subjective Encounter Start Date: 08/30/18 Encounter Start Time: 13:04 Ms. Rodriguez was seen today in follow-up of chest pain. Today she says she feels better. She denies any difficulty breathing, and no longer has any chest pain. She does however complain of pain in her right leg, along the bell, especially when she puts weight on her leg. - Objective Resuscitation Status - Order Detail: 08/29/18 20:17 Resuscitation Status Routine Resuscitation Status: FULL: Full Resuscitation MAR Reviewed: Yes Vital Signs & Weight: Vital Signs (12 hours) Temp Pulse Resp BP BP Pulse Ox 08/30/18 11:00 97.5 F L 63 20 128/95 H 96 08/30/18 09:19 122/88 08/30/18 07:58 97.5 F L 54 L 20 122/88 96 08/30/18 05:30 98.1 F 59 L 17 111/71 97 Weight Weight 410 lb 9.6 oz I&O: 08/29/18 08/30/18 08/31/18 06:59 06:59 06:59 Intake Total 350 Balance 350 Result Diagrams: 08/30/18 04:57 08/30/18 04:57 Phys Exam - Physical Examination HEENT: PERRLA Respiratory: no wheezing, no rales, no rhonchi, clear to auscultation bilateral Cardiovascular: RRR, no significant murmur, no rub Gastrointestinal: soft, non-tender, positive bowel sounds Musculoskeletal: no edema, pulses present + tenderness over the anterior leg, no swelling or erythema, no induration no warmth Dx/Plan (1) Chest pain Code(s): R07.9 - CHEST PAIN, UNSPECIFIED Status: Acute (2) Hypertension Code(s): I10 - ESSENTIAL (PRIMARY) HYPERTENSION Status: Chronic (3) Morbid (severe) obesity due to excess calories Code(s): E66.01 - MORBID (SEVERE) OBESITY DUE TO EXCESS CALORIES Status: Chronic - Plan * Chest pain- non-cardiac- recent stress test was negative. She also has had a CTA in the recent past similar complaints which was also negative. Her D.Dimer on this admission was negative. She was volume overloaded, and this could be the reason for the chest pain * HTN- blood pressure is controlled * Morbid Obesity- unchanged * Leg pain- ? etiology- venous doppler was negative, await X-ray results. * I suspect she may have some Obesity Hypoventilation syndrome as the cause for retaining fluid- I have recommended that she obtain an outpatient .
--- NOTE | 2018-08-30 13:11 | RAD ---
RIGHT TIBIA AND FIBULA 2 VIEW SERIES: (3 VIEWS PROVIDED) DATE: 08/30/18 INDICATINO: Right leg pain. FINDINGS: There is no fracture or dislocation of the tibia or fibula of the right lower extremity identified. T here are vascular calcifications. Prominence of regional soft tissues is seen. IMPRESSION: 1. No discrete fracture of the right leg osseous structures. 2. Vascular calcifications. POS: [facility]
[2018-08-30 15:59] VITALS: BP 123/73; TEMP 98
--- NOTE | 2018-08-30 15:59 | DIS ---
DATE OF ADMISSION: 08/29/2018 DATE OF DISCHARGE: 08/30/2018 PRIMARY CARE PHYSICIAN: Sonia Gallagher. DISCHARGE DISPOSITION: Home. PRIMARY DISCHARGE DIAGNOSES: 1. Chest pain, noncardiac. 2. Morbid obesity. The patient is 5 feet and 7 inches, 410 pounds, and has a BMI of 64.3. 3. Hypertension. 4. Congestive heart failure with preserved ejection fraction. 5. Probable undiagnosed sleep apnea. 6. Right lower leg pain, unknown etiology. PROCEDURES: Procedures done during the admission: The patient had a lower extremity venous Doppler, which was negative for DVT; and the patient had an x-ray of the right tibia fibula, which was negative. DISCHARGE MEDICATIONS: Include; 1. Simvastatin 10 mg at bedtime. 2. Iron sulfate 325 mg q.i.d. 3. Lisinopril 10 mg daily. 4. Lasix 80 mg a day. 5. Fluoxetine 20 mg daily. 6. Aspirin 81 mg a day. CODE STATUS: Full code. ALLERGIES: DIPHENHYDRAMINE AND PROMETHAZINE WELL SULFA AND TRIMETHOPRIM. HOSPITAL COURSE: Ms. Rodriguez is a very pleasant 43-year-old female, who presented to the emergency room complaining of chest pain. She also noted some shortness of breath and lower extremity edema. She was placed in observation and was ruled out with serial cardiac enzymes, which were negative. She had recently been hospitalized for similar complaints, and at that time, she had had an echocardiogram as well as a nuclear stress test and a CT angiogram of the chest, all of which were negative. On this admission, a D-dimer was done and this was normal. Therefore, it is unlikely that this represents a pulmonary embolism. It was noted on her chest x-ray that she had cardiomegaly with increased pulmonary vascular markings. She was given IV Lasix and diuresed well overnight, and I suspect that her chest pain could be related to volume overload. She is also morbidly obese and I suspect she could have some undiagnosed sleep apnea. This could lead to fluid retention. I explained this to the patient and suggested that she should have an outpatient sleep study done as this maybe one of the reasons that she has an exacerbation of the congestive heart failure. Her mother and grandmother both have sleep apnea, therefore, she is at high risk. She voiced understanding. Her daughter was at the bedside as well and voiced understanding. After being diuresed, her symptoms have improved. She did complain of some pain in her right leg, mainly with weightbearing. A lower extremity venous Doppler was done, which was negative for DVT. We also did an x-ray of her tibia as she said that the pain was more or less along the bell and this was negative. It is possible that the pain could be related to her weight or muscle strain, and can be further worked up in the outpatient setting. She is to follow up with Sonia Gallagher in approximately 1 week. Job ID: [id number]
== END 2018-08-30 16:55 | disposition home or self-care (01) ==
LOC: ERS 14:22 → 2SW 18:56
PROVIDERS: ADMIT Internal Medicine; ATTEND Internal Medicine
DX: R07.89 Other chest pain (principal); I11.0 Hypertensive heart disease with heart failure; I50.30 Unspecified diastolic (congestive) heart failure; M79.661 Pain in right lower leg; J44.9 Chronic obstructive pulmonary disease, unspecified; E87.6 Hypokalemia; R73.9 Hyperglycemia, unspecified; E66.01 Morbid (severe) obesity due to excess calories; Z68.44 Body mass index [BMI] 60.0-69.9, adult; Z79.82 Long term (current) use of aspirin; Z79.899 Other long term (current) drug therapy; Z88.2 Allergy status to sulfonamides; Z88.8 Allergy status to other drugs, medicaments and biological substances
CPT/HCPCS: 36415; 71045; 80048; 80053; 82550; 83880; 84484; 85025; 85379; 93005; 93970; 96372; 96374; 96375; G0378; J1650; J1940; J2270

== ENCOUNTER 2018-10-04 12:15 | Emergency (ER) | payer SELFPAY ==
[2018-10-04 12:53] LABS: Hemoglobin 12.2 g/dL (12.0-16.0); Mean Corpuscular HGB CONC 31.3 g/dL (32.0-36.0); Mean Corpuscular Volume 73.6 fL (78.0-98.0); Mean Platelet Volume 12.1 fL (7.4-10.4); Platelet Count 228 thou/uL (130-400); RBC Distribution Width 16.3 % (11.5-14.5); Red Blood Cell (RBC) Count 5.29 mill/uL (4.20-5.40); White Blood Cell (WBC) Count 10.6 thou/uL (4.8-10.8)
[2018-10-04] MEDS ORDERED: Lidocaine Viscous Sol 2% 15 ml UD Cup ONE (13:03)
[2018-10-04] MEDS ORDERED: Mag-Al 1200 mg/1200 mg/30 ML UDCUP ONE (13:03)
[2018-10-04 13:04] LABS: ALT (SGPT) 19 U/L (8-55); AST (SGOT) 18 U/L (5-34); Alkaline Phosphatase 80 U/L (40-150); Anion Gap 12 mmol/L (10-20); BUN (Urea Nitrogen) 11 mg/dL (7.0-18.7); Bilirubin, Total 0.9 mg/dL (0.2-1.2); Calc. Creatinine Clearance 0 mL/min (70-130); Calcium 9.5 mg/dL (7.8-10.44); Carbon Dioxide 26 mmol/L (22-29); Chloride 103 mmol/L (98-107); Estimated GFR-MDRD Greater than 90; Globulin 3.5 g/dL (2.4-3.5); Glucose 107 mg/dL (70-105); Lipase 22 U/L (8-78); Potassium 3.2 mmol/L (3.5-5.1); Protein, Total 7.5 g/dL (6.0-8.3); Sodium 138 mmol/L (136-145)
[2018-10-04 13:18] LABS: #Basophils 0.1 thou/uL (0.0-0.2); #Eosinphils 0.3 thou/uL (0.0-0.7); #Lymphocytes 2.5 thou/uL (1.20-3.40); #Monocytes 0.5 thou/uL (0.11-0.59); #Neutrophils 7.3 thou/uL (1.40-6.50); %Basophils 0.8 % (0.0-1.0); %Eosinophils 2.7 % (0.0-10.0); %Lymphocytes 23.2 % (21.0-51.0); %Monocytes 4.5 % (0.0-10.0); %Neutrophils 68.9 % (42.0-75.0); MDiff Complete? YES
[2018-10-04 13:19] LABS: Hypochromia SLIGHT = 6-15 cells (100X) (0-5/hpf); Microcytosis SLIGHT = 6-15 cells (100X) (0-5/hpf); Platelet Morphology Comment Appears Adequate; Polychromasia SLIGHT = 2-3 cells (100X) (0-2/hpf)
[2018-10-04] MEDS ORDERED: Ondansetron ODT 4 MG TAB ONE (13:23)
--- NOTE | 2018-10-04 13:58 | RAD ---
PORTABLE CHEST: DATE: 10/04/2018. PROVIDED CLINICAL HISTORY: Chest pain. FINDINGS: Comparison 08/29/2018. Evaluation is limited by patient body habitus. The cardiac silhouette appears enlarged. The lungs are hypoinflated but grossly clear. No pleural fluid or pneumothorax apparent. IMPRESSION: Limited study without evidence for an acute cardiopulmonary process. POS: [facility]
[2018-10-04 16:14] LABS: Troponin I Less than 0.010 ng/mL (< 0.028)
== END 2018-10-04 17:18 | disposition home or self-care (01) ==
LOC: ERS 12:15
DX: K21.9 Gastro-esophageal reflux disease without esophagitis (principal); J44.9 Chronic obstructive pulmonary disease, unspecified; D64.9 Anemia, unspecified; I11.0 Hypertensive heart disease with heart failure; I50.9 Heart failure, unspecified; F41.9 Anxiety disorder, unspecified; F32.9 Major depressive disorder, single episode, unspecified; F17.210 Nicotine dependence, cigarettes, uncomplicated; Z79.899 Other long term (current) drug therapy
CPT/HCPCS: 36415; 71045; 80053; 83690; 84484; 85025; 93005; Q0162

== ENCOUNTER 2018-11-20 22:14 | Emergency (ER) | payer SELFPAY ==
[2018-11-20 22:49] LABS: #Basophils 0.1 thou/uL (0.0-0.2); #Eosinphils 0.4 thou/uL (0.0-0.7); #Lymphocytes 3.1 thou/uL (1.20-3.40); #Monocytes 0.5 thou/uL (0.11-0.59); #Neutrophils 8.2 thou/uL (1.40-6.50); %Basophils 0.7 % (0.0-1.0); %Eosinophils 3.3 % (0.0-10.0); %Lymphocytes 25.2 % (21.0-51.0); %Monocytes 3.7 % (0.0-10.0); %Neutrophils 67.1 % (42.0-75.0); Hemoglobin 12.5 g/dL (12.0-16.0); Mean Corpuscular HGB CONC 31.1 g/dL (32.0-36.0); Mean Corpuscular Hemoglobin 22.8 pg (27.0-31.0); Mean Corpuscular Volume 73.4 fL (78.0-98.0); Mean Platelet Volume 11.9 fL (7.4-10.4); Platelet Count 250 thou/uL (130-400); RBC Distribution Width 16.4 % (11.5-14.5); Red Blood Cell (RBC) Count 5.49 mill/uL (4.20-5.40); White Blood Cell (WBC) Count 12.2 thou/uL (4.8-10.8)
--- NOTE | 2018-11-20 22:55 | RAD ---
Exam: Chest one view HISTORY:Chest pain Comparison: 10/04/2018 FINDINGS: Cardiac silhouette: Normal Pulmonary vessels: Normal Costophrenic angles: Clear LUNGS: No masses or consolidation. Pneumothorax: None Osseous abnormalities: None IMPRESSION: No acute cardiopulmonary process.
[2018-11-20 23:16] LABS: ALT (SGPT) 18 U/L (8-55); AST (SGOT) 16 U/L (5-34); Alkaline Phosphatase 73 U/L (40-150); Anion Gap 14 mmol/L (10-20); BUN (Urea Nitrogen) 14 mg/dL (7.0-18.7); Bilirubin, Total 0.4 mg/dL (0.2-1.2); CK (CPK) 138 U/L (29-168); Calc. Creatinine Clearance 0 mL/min (70-130); Calcium 9.6 mg/dL (7.8-10.44); Carbon Dioxide 24 mmol/L (22-29); Chloride 105 mmol/L (98-107); Estimated GFR-MDRD 86; Globulin 3.9 g/dL (2.4-3.5); Glucose 129 mg/dL (70-105); Potassium 3.4 mmol/L (3.5-5.1); Protein, Total 7.9 g/dL (6.0-8.3); Sodium 140 mmol/L (136-145)
[2018-11-20] MEDS ORDERED: Ondansetron ODT 4 MG TAB ONE (23:17)
[2018-11-20] MEDS ORDERED: Acetaminophen 500 MG TAB ONE (23:17)
[2018-11-20] MEDS ORDERED: Ketorolac Tromethamine 30 MG/ML VIAL ONE (23:17)
== END 2018-11-20 23:48 | disposition home or self-care (01) ==
LOC: ERS 22:14
DX: R07.9 Chest pain, unspecified (principal); D64.9 Anemia, unspecified; I50.9 Heart failure, unspecified; I11.0 Hypertensive heart disease with heart failure; F17.210 Nicotine dependence, cigarettes, uncomplicated; Z79.899 Other long term (current) drug therapy; Z79.82 Long term (current) use of aspirin
CPT/HCPCS: 36415; 71045; 80053; 82550; 84484; 85025; 93005; 94760; 96372; J1885; Q0162

== ENCOUNTER 2018-12-08 07:04 | Emergency (ER) | payer SELFPAY ==
[2018-12-08] MEDS ORDERED: Ibuprofen 800 MG TAB ONE (08:39)
--- NOTE | 2018-12-08 09:01 | ULT ---
EXAM: Left lower extremity venous duplex: Deep veins evaluated with color Doppler, spectral analysis, and compression. INDICATIONS: Left lower extremity pain and edema. FINDINGS: There is decreased acoustic penetration related to body habitus. This does reduce sensitivi ty of the evaluation. Deep veins interrogated include common femoral vein, femoral vein, popliteal vein, and posterior tibial vein. These veins show normal compression and blood flow. No evidence of D VT. IMPRESSION: Negative Left venous duplex exam.
== END 2018-12-08 09:18 | disposition home or self-care (01) ==
LOC: ERS 07:04
DX: M79.662 Pain in left lower leg (principal); D64.9 Anemia, unspecified; J44.9 Chronic obstructive pulmonary disease, unspecified; I11.0 Hypertensive heart disease with heart failure; I50.9 Heart failure, unspecified; F41.9 Anxiety disorder, unspecified; F32.9 Major depressive disorder, single episode, unspecified; F17.210 Nicotine dependence, cigarettes, uncomplicated; Z79.899 Other long term (current) drug therapy; Z79.82 Long term (current) use of aspirin

== ENCOUNTER 2018-12-13 23:36 | Emergency (ER) | payer SELFPAY ==
--- NOTE | 2018-12-14 08:23 | RAD ---
CHEST 1 VIEW: INDICATION: History of cough. COMPARISON: Prior exam dated 11/20/2018. FINDINGS: There are low lung volumes. Lungs are clear. No pleural effusion or pneumothorax is evident. No ac iroquois osseous abnormality is evident. IMPRESSION: No acute abnormality. POS: [facility]
== END 2018-12-14 00:49 | disposition home or self-care (01) ==
LOC: ERS 23:36
DX: R05 Cough (principal); I11.0 Hypertensive heart disease with heart failure; I50.9 Heart failure, unspecified; D64.9 Anemia, unspecified; J44.9 Chronic obstructive pulmonary disease, unspecified; F41.9 Anxiety disorder, unspecified; F17.210 Nicotine dependence, cigarettes, uncomplicated; F32.9 Major depressive disorder, single episode, unspecified
CPT/HCPCS: 71046; 93005

== ENCOUNTER 2018-12-23 08:52 | Emergency (ER) | payer SELFPAY | END 2018-12-23 10:08 | disposition home or self-care (01) | LOC: ERS 08:52 | DX: R05 Cough (principal); D64.9 Anemia, unspecified; I11.0 Hypertensive heart disease with heart failure; I50.9 Heart failure, unspecified; F41.9 Anxiety disorder, unspecified; F32.9 Major depressive disorder, single episode, unspecified; F17.210 Nicotine dependence, cigarettes, uncomplicated; J44.9 Chronic obstructive pulmonary disease, unspecified; Z79.51 Long term (current) use of inhaled steroids; Z79.899 Other long term (current) drug therapy | CPT/HCPCS: 99281 ==

== ENCOUNTER 2019-02-04 22:36 | Emergency (ER) | payer SELFPAY ==
[2019-02-04] MEDS ORDERED: Ketorolac Tromethamine 60 MG/2 ML VIAL ONE (23:35)
[2019-02-04] MEDS ORDERED: Lorazepam 2 MG/ML VIAL ONE (23:35)
== END 2019-02-05 00:01 | disposition home or self-care (01) ==
LOC: ERS 22:36
DX: M54.41 Lumbago with sciatica, right side (principal); D64.9 Anemia, unspecified; I11.0 Hypertensive heart disease with heart failure; I50.9 Heart failure, unspecified; F17.210 Nicotine dependence, cigarettes, uncomplicated
CPT/HCPCS: 96372; 99283; J1885; J2060

== ENCOUNTER 2019-02-14 15:38 | Emergency (ER) | payer SELFPAY ==
[2019-02-14] MEDS ORDERED: Acetaminophen 500 MG TAB ONE (17:10)
[2019-02-14] MEDS ORDERED: Ketorolac Tromethamine 30 MG/ML VIAL ONE (17:10)
[2019-02-14] MEDS ORDERED: Metoclopramide HCl 10 MG/2 ML VIAL ONE (17:11)
--- NOTE | 2019-02-14 17:33 | CT ---
BRAIN CT WITHOUT IV CONTRAST: History: Headache. Comparison: 06-09-18 FINDINGS: No mass or midline shift. No intra or extraaxial hemorrhage. Sinuses and mastoids are clear of acute process. IMPRESSION: No significant acute intracranial process. No mass or bleed. POS: [facility]
--- NOTE | 2019-02-14 18:38 | RAD ---
EXAM: RIGHT KNEE FOUR VIEWS: History: Right knee injury. Comparison: 02-06-18 FINDINGS: Patient's very large body habitus somewhat lowers the sensitivity of this study. There are some trico mpartment degenerative and arthrosis changes. No acute fracture, dislocation, or other acute process. IMPRESSION: Degenerative and osteoarthrosis changes. No fracture or dislocation. Very large body habitus. POS: [facility]
== END 2019-02-14 18:37 | disposition home or self-care (01) ==
LOC: ERS 15:38
DX: S83.91XA Sprain of unspecified site of right knee, initial encounter (principal); R51 Headache; I11.0 Hypertensive heart disease with heart failure; I50.9 Heart failure, unspecified; J44.9 Chronic obstructive pulmonary disease, unspecified; D64.9 Anemia, unspecified; F41.9 Anxiety disorder, unspecified; F32.9 Major depressive disorder, single episode, unspecified; F17.210 Nicotine dependence, cigarettes, uncomplicated; Z79.899 Other long term (current) drug therapy; W19.XXXA Unspecified fall, initial encounter
CPT/HCPCS: 70450; 96365; 96366; 96375; J1885; J2765

== ENCOUNTER 2019-04-06 11:41 | Emergency (ER) | payer SELFPAY ==
[~2019-04-06 11:41] MED LIST: ISOVUE-370 76%-LOCM 1 ML ONE
--- NOTE | 2019-04-06 11:59 | CT ---
Head CT without contrast 04/06/2019: COMPARISON: 02/14/2019 HISTORY: Stroke alert, altered mental status, nonverbal TECHNIQUE: Axial CT imaging at 5 mm intervals from vertex through skull base without contrast FINDINGS: Imaged paranasal sinuses and mastoid air cells well-aerated. No displaced calvarial fractur e. No intracranial hemorrhage, midline shift, mass effect, or ventricular enlargement. IMPRESSION: No acute findings. Results called to Dr. Westbrook at 11:55 AM 04/06/2019.
[2019-04-06 12:10] LABS: #Basophils 0.1 thou/uL (0.0-0.2); #Eosinphils 0.5 thou/uL (0.0-0.7); #Lymphocytes 3.3 thou/uL (1.20-3.40); #Monocytes 0.3 thou/uL (0.11-0.59); #Neutrophils 7.2 thou/uL (1.40-6.50); %Basophils 0.8 % (0.0-1.0); %Eosinophils 4.2 % (0.0-10.0); %Lymphocytes 28.8 % (21.0-51.0); %Monocytes 2.9 % (0.0-10.0); %Neutrophils 63.3 % (42.0-75.0); Hemoglobin 12.4 g/dL (12.0-16.0); Mean Corpuscular HGB CONC 31.9 g/dL (32.0-36.0); Mean Corpuscular Hemoglobin 23.4 pg (27.0-31.0); Mean Corpuscular Volume 73.2 fL (78.0-98.0); Mean Platelet Volume 12.1 fL (7.4-10.4); Platelet Count 233 thou/uL (130-400); White Blood Cell (WBC) Count 11.4 thou/uL (4.8-10.8)
[2019-04-06 12:11] LABS: PTT 27.9 SEC (22.9-36.1); Prothrombin Time 13.1 SEC (12.0-14.7)
[2019-04-06 12:21] LABS: ALT (SGPT) 16 U/L (8-55); AST (SGOT) 14 U/L (5-34); Albumin 3.9 g/dL (3.5-5.0); Alkaline Phosphatase 75 U/L (40-150); Anion Gap 11 mmol/L (10-20); BUN (Urea Nitrogen) 11 mg/dL (7.0-18.7); Bilirubin, Total 0.6 mg/dL (0.2-1.2); CK (CPK) 151 U/L (29-168); Calc. Creatinine Clearance 0 mL/min (70-130); Calcium 9.2 mg/dL (7.8-10.44); Carbon Dioxide 27 mmol/L (22-29); Chloride 103 mmol/L (98-107); Estimated GFR-MDRD 78; Globulin 3.8 g/dL (2.4-3.5); Glucose 96 mg/dL (70-105); Potassium 3.4 mmol/L (3.5-5.1); Protein, Total 7.7 g/dL (6.0-8.3); Sodium 138 mmol/L (136-145)
--- NOTE | 2019-04-06 12:23 | CT ---
CT angiogram head CT angiogram neck: 04/06/2019 COMPARISON: None HISTORY: Level 1 stroke alert, altered mental status, nonverbal patient TECHNIQUE: axial CT imaging at 1.25 mm intervals from skull base through vertex with IV contrast usin g CT angiogram protocol with coronal and sagittal 3-D reformatted imaging FINDINGS: Imaged lung apices grossly unremarkable. Body habitus limits detailed assessment at the level of the aortic arch. The origin of the left subcl levon artery, left vertebral artery, left common carotid artery, innominate artery, right subclavian artery, right common carotid artery, and right subclavian artery appears unremarkable. Limited assessment for aerodigestive tract lesion is unremarkable. The retroantral and parapharyngeal fat appears unremarkable. The parotid and submandibular glands appear unremarkable bilaterally. On the basis of NASCET criteria, there is no hemodynamically significant stenosis seen involving the common carotid artery or the internal carotid artery on either side. The distal common carotid arteries demonstrate a medialized retropharyngeal course bilaterally. Multiple mildly prominent nonenlarged posterior triangle lymph nodes are noted bilaterally. Mildly prominent but nonenlarged level 2 lymph nodes are noted bilaterally, left greater than right, measuring up to 9 mm in short axis. The vertebral arteries are patent. Left vertebral artery is dominant. The basilar artery and its branches appear patent. There is no saccular aneurysm, high-grade stenosis, or vascular occlusion involving the posterior cir culation. The A1 segment appears patent bilaterally as do the distal FLAQUITO branches. The M1 segment, the ICA bifurcation, the MCA bifurcation, and the distal MCA branches appear grossly unremarkable bilaterally. No central arterial occlusion, saccular aneurysm, or hemodynamically significant stenosis is seen involving the anterior circulation. No acute osseous abnormality. IMPRESSION: No acute findings on CT angiogram of head/neck. Incidental findings as detailed above. Dr. Westbrook made aware at 12:19 PM 04/06/2019.
[2019-04-06 12:24] LABS: Hypochromia SLIGHT = 6-15 cells (100X) (0-5/hpf); MDiff Complete? YES; Microcytosis SLIGHT = 6-15 cells (100X) (0-5/hpf); Ovalocytes SLIGHT = 2-5 cells (100X) (0-1/hpf); Platelet Morphology Comment Appears Adequate; Polychromasia SLIGHT = 2-3 cells (100X) (0-2/hpf)
[2019-04-06 13:03] LABS: Acetaminophen Less than 6.0 mcg/mL (10.0-30.0); Alcohol Less than 10 mg/dL (Less than 10); Salicylate Less than 8.0 mg/dL (15.0-30.0)
[2019-04-06] MEDS ORDERED: hydrALAZINE 20 MG/ML VIAL ONE (13:32)
[2019-04-06 13:59] LABS: Bilirubin Negative (Negative); Blood, Urine Negative (Negative); Clarity Clear (Clear); Glucose, Urine (Dipstick) Normal (Negative); Leukocyte Negative Leu/uL (Negative); Nitrite Negative (Negative); Protein, Urine (Dipstick) Negative (Neg-Trace); Urobilinogen Normal mg/dL (Less than 2)
[2019-04-06 14:01] LABS: Pregnancy Test - Urine (BHCG) Negative (Negative); Pregu Control Background? CLEAR/WHITE (CLR/WHITE); Pregu Control Bar Appear? YES (CONTROL BAR); Specific Gravity 1.025 (1.002-1.036)
[2019-04-06 14:08] LABS: Amphetamine Detected (NotDetected); Barbiturates Screen Not Detected (NotDetected); Benzodiazepine Screen Detected (NotDetected); Cocaine Metabolite Screen Not Detected (NotDetected); Medtox Control Line Valid? VALID (VALID); Medtox Reader # READER 4; Methadone Not Detected (NotDetected); Methamphetamine Detected (NotDetected); Opiate Screen Not Detected (NotDetected); Oxycodone Screen Not Detected (NotDetected); Phencyclidine (PCP) Not Detected (NotDetected); THC/Cannabinoid Screen Not Detected (NotDetected); Tricyclic Screen Not Detected (NotDetected)
== END 2019-04-06 16:07 | disposition home or self-care (01) ==
LOC: ERS 11:41
DX: R07.9 Chest pain, unspecified (principal); R41.82 Altered mental status, unspecified; I11.0 Hypertensive heart disease with heart failure; I50.9 Heart failure, unspecified; E66.9 Obesity, unspecified; J44.9 Chronic obstructive pulmonary disease, unspecified; F41.9 Anxiety disorder, unspecified; F32.9 Major depressive disorder, single episode, unspecified; F17.210 Nicotine dependence, cigarettes, uncomplicated; Z79.899 Other long term (current) drug therapy
CPT/HCPCS: 36415; 36416; 51701; 70450; 70496; 70498; 80053; 80306; 80307; 81003; 81025; 82550; 84484; 85025; 85610; 85730; 93005; 94760; 96374; A4353; J0360; Q9966

== ENCOUNTER 2019-04-24 22:29 | Emergency (ER) | payer SELFPAY ==
[2019-04-24] MEDS ORDERED: Metoclopramide HCl 10 MG/2 ML VIAL ONE (23:37)
[2019-04-24] MEDS ORDERED: Magnesium 2 GM/50 ML BAG (IN WATER) ONE (23:37)
[2019-04-24 23:41] LABS: #Basophils 0.1 thou/uL (0.0-0.2); #Eosinphils 0.2 thou/uL (0.0-0.7); #Lymphocytes 2.9 thou/uL (1.20-3.40); #Monocytes 0.3 thou/uL (0.11-0.59); #Neutrophils 7.1 thou/uL (1.40-6.50); %Basophils 0.5 % (0.0-1.0); %Eosinophils 1.8 % (0.0-10.0); %Lymphocytes 27.2 % (21.0-51.0); %Monocytes 2.9 % (0.0-10.0); %Neutrophils 67.6 % (42.0-75.0); Hemoglobin 13.3 g/dL (12.0-16.0); Mean Corpuscular HGB CONC 31.5 g/dL (32.0-36.0); Mean Corpuscular Hemoglobin 23.5 pg (27.0-31.0); Mean Corpuscular Volume 74.4 fL (78.0-98.0); Platelet Count 222 thou/uL (130-400); RBC Distribution Width 17.6 % (11.5-14.5); Red Blood Cell (RBC) Count 5.67 mill/uL (4.20-5.40); White Blood Cell (WBC) Count 10.5 thou/uL (4.8-10.8)
[2019-04-24 23:49] LABS: BHCG - Serum Negative (NEGATIVE); Pregs Control Background? CLEAR/WHITE (CLR/WHITE); Pregs Control Bar Appear? YES (CONTROL BAR)
[2019-04-24 23:53] LABS: ALT (SGPT) 16 U/L (8-55); AST (SGOT) 21 U/L (5-34); Albumin 4.3 g/dL (3.5-5.0); Alkaline Phosphatase 79 U/L (40-110); Anion Gap 16 mmol/L (10-20); BUN (Urea Nitrogen) 12 mg/dL (7.0-18.7); Bilirubin, Total 0.6 mg/dL (0.2-1.2); Calc. Creatinine Clearance 0 mL/min (70-130); Calcium 9.4 mg/dL (7.8-10.44); Carbon Dioxide 23 mmol/L (22-29); Chloride 103 mmol/L (98-107); Estimated GFR-MDRD Greater than 90; Globulin 4.5 g/dL (2.4-3.5); Glucose 97 mg/dL (70-105); Protein, Total 8.8 g/dL (6.0-8.3); Sodium 138 mmol/L (136-145)
--- NOTE | 2019-04-25 00:09 | RAD ---
EXAM: Chest one view: HISTORY: Headache and chest tightness COMPARISON: 11/20/2018 FINDINGS: Heart size: Minimally enlarged. Lungs: Clear of acute process. No evidence for pneumonia, pleural effusion, acute edema, or pneumothorax, or other significant acute process. IMPRESSION: No significant acute intrathoracic disease. Stable chest.
== END 2019-04-25 02:06 | disposition home or self-care (01) ==
LOC: ERS 22:29
DX: R51 Headache (principal); I11.0 Hypertensive heart disease with heart failure; I50.9 Heart failure, unspecified; D64.9 Anemia, unspecified; E66.9 Obesity, unspecified; J44.9 Chronic obstructive pulmonary disease, unspecified; F41.9 Anxiety disorder, unspecified; F32.9 Major depressive disorder, single episode, unspecified; F17.210 Nicotine dependence, cigarettes, uncomplicated; Z79.899 Other long term (current) drug therapy
CPT/HCPCS: 71045; 80053; 84484; 84703; 85025; 93005; 96365; 96366; 96368; J2765; J3475

== ENCOUNTER 2019-05-19 09:00 | Emergency (ER) | payer SELFPAY ==
[2019-05-19] MEDS ORDERED: Ketorolac Tromethamine 60 MG/2 ML VIAL ONE (10:23)
--- NOTE | 2019-05-19 10:28 | RAD ---
Exam:3 views left HISTORY: Pain. COMPARISON: None FINDINGS: Lisfranc alignment is maintained. Joint spaces are preserved. No fracture Minimal spurring of the calcaneus at the plantar aponeurosis insertion site as well as at the inserti on of the Achilles tendon. There is midfoot soft tissue swelling. IMPRESSION: Midfoot soft tissue swelling, without evidence of fracture.
== END 2019-05-19 10:46 | disposition home or self-care (01) ==
LOC: ERS 09:00
DX: M79.672 Pain in left foot (principal); I11.0 Hypertensive heart disease with heart failure; I50.9 Heart failure, unspecified; J44.9 Chronic obstructive pulmonary disease, unspecified; F17.210 Nicotine dependence, cigarettes, uncomplicated; Z79.899 Other long term (current) drug therapy
CPT/HCPCS: 96372; J1885

== ENCOUNTER 2019-12-30 10:54 | Emergency (ER) | payer SELFPAY ==
[2019-12-30] MEDS ORDERED: traMADol HCl 50 MG TAB ONE (11:21)
[2019-12-30] MEDS ORDERED: Cephalexin 250 MG CAP ONE (11:41)
== END 2019-12-30 12:20 | disposition home or self-care (01) ==
LOC: ERS 10:54
DX: H65.92 Unspecified nonsuppurative otitis media, left ear (principal); J02.9 Acute pharyngitis, unspecified; I11.0 Hypertensive heart disease with heart failure; I50.9 Heart failure, unspecified; D64.9 Anemia, unspecified; J44.9 Chronic obstructive pulmonary disease, unspecified; F41.9 Anxiety disorder, unspecified; F32.9 Major depressive disorder, single episode, unspecified; E66.01 Morbid (severe) obesity due to excess calories; F17.210 Nicotine dependence, cigarettes, uncomplicated; Z79.899 Other long term (current) drug therapy
CPT/HCPCS: 99283

== ENCOUNTER 2020-04-04 14:03 | Emergency (ER) | payer SELFPAY ==
--- NOTE | 2020-04-04 15:14 | ULT ---
Exam: the venous ultrasound with Doppler COMPARISON: 11/30/2018 TECHNIQUE: Grayscale, color flow, Doppler imaging and spectral waveform analysis performed the left l ower extremity venous system FINDINGS: Compressibility and flow of the common femoral vein, greater saphenous vein and profunda femoral vein . The mid femoral vein does compress. Partial compression of the distal femoral vein. There is flow and compressibility knee popliteal vein. In the popliteal fossa, there is ill-defined anechoic area w hich may represent a popliteal cyst measuring 1.4 x 3.9 x 3.3 cm. There is flow in the posterior tibial vein. IMPRESSION: 1. Partial thrombus of the distal femoral vein. 2. Nonspecific fluid collection the left popliteal fossa. Correlate for Garcia's cyst. Results study conveyed to the patient's nurse Zarina by the laboratory coordinator Vandana 04/04/2020 at 3:06 PM Code CR
[2020-04-04] MEDS ORDERED: Ketorolac Tromethamine 30 MG/ML VIAL ONE (15:26)
--- NOTE | 2020-04-04 16:21 | RAD ---
LEFT LEG 2 VIEWS: Date: 04/04/2020 HISTORY: Left leg pain. FINDINGS/IMPRESSION: The left tibia and fibula appear intact. There are posterior and plantar calcaneal spurs. POS: [facility]
--- NOTE | 2020-04-04 16:22 | RAD ---
LEFT FEMUR 2 VIEWS: Date: 04/04/2020 HISTORY: Left lower extremity pain. FINDINGS/IMPRESSION: The left femur is intact. POS: [facility]
== END 2020-04-04 16:25 | disposition home or self-care (01) ==
LOC: ERS 14:03
DX: I82.412 Acute embolism and thrombosis of left femoral vein (principal); E66.01 Morbid (severe) obesity due to excess calories; D64.9 Anemia, unspecified; I11.0 Hypertensive heart disease with heart failure; I50.9 Heart failure, unspecified; J44.9 Chronic obstructive pulmonary disease, unspecified; F41.9 Anxiety disorder, unspecified; F32.9 Major depressive disorder, single episode, unspecified; F17.210 Nicotine dependence, cigarettes, uncomplicated; Z79.899 Other long term (current) drug therapy
CPT/HCPCS: 96372; J1885

== ENCOUNTER 2020-04-27 03:34 | Observation (INO) | payer OTHER, SELFPAY ==
[2020-04-27 04:07] LABS: #Basophils 0.1 thou/uL (0.0-0.2); #Eosinphils 0.2 thou/uL (0.0-0.7); #Lymphocytes 3.2 thou/uL (1.20-3.40); #Monocytes 0.5 thou/uL (0.11-0.59); #Neutrophils 7.5 thou/uL (1.40-6.50); %Basophils 0.7 % (0.0-1.0); %Eosinophils 1.5 % (0.0-10.0); %Lymphocytes 27.6 % (21.0-51.0); %Monocytes 4.4 % (0.0-10.0); %Neutrophils 65.8 % (42.0-75.0); Hemoglobin 11.7 g/dL (12.0-16.0); Mean Corpuscular HGB CONC 31.4 g/dL (32.0-36.0); Mean Corpuscular Hemoglobin 24.3 pg (27.0-31.0); Mean Corpuscular Volume 77.2 fL (78.0-98.0); Mean Platelet Volume 10.9 fL (7.4-10.4); Platelet Count 213 thou/uL (130-400); RBC Distribution Width 15.9 % (11.5-14.5); Red Blood Cell (RBC) Count 4.83 mill/uL (4.20-5.40); White Blood Cell (WBC) Count 11.4 thou/uL (4.8-10.8)
[2020-04-27 04:22] LABS: INR-International Normal Ratio 1.1; PTT 33.8 sec (22.9-36.1); Prothrombin Time 14.6 sec (12.0-14.7)
[2020-04-27 04:24] LABS: D-Dimer Test 0.4 *mcg/mL (0.27-0.43)
[2020-04-27 04:29] LABS: ALT (SGPT) 17 U/L (8-55); AST (SGOT) 16 U/L (5-34); Albumin 3.6 g/dL (3.5-5.0); Alkaline Phosphatase 66 U/L (40-110); Anion Gap 16 mmol/L (10-20); BUN (Urea Nitrogen) 17 mg/dL (7.0-18.7); Bilirubin, Total 0.4 mg/dL (0.2-1.2); Calc. Creatinine Clearance 0 mL/min (70-130); Calcium 8.8 mg/dL (7.8-10.44); Carbon Dioxide 20 mmol/L (22-29); Chloride 105 mmol/L (98-107); Estimated GFR-MDRD Greater than 90; Globulin 3.8 g/dL (2.4-3.5); Glucose 98 mg/dL (70-105); Lipase 26 U/L (8-78); Potassium 3.5 mmol/L (3.5-5.1); Protein, Total 7.4 g/dL (6.0-8.3); Sodium 137 mmol/L (136-145)
[2020-04-27] MEDS ORDERED: Morphine 4 MG/ML VIAL ONE (04:54)
[2020-04-27] MEDS ORDERED: Mag-Al 1200 mg/1200 mg/30 ML UDCUP ONE (04:54)
[2020-04-27] MEDS ORDERED: Lidocaine Viscous Sol 2% 15 ml UD Cup ONE (04:54)
[2020-04-27] MEDS ORDERED: Ketorolac Tromethamine 30 MG/ML VIAL ONE (05:27)
[2020-04-27] MEDS ORDERED: Nitroglycerin 2% Ointment 1 INCH/1 GM Packet ONE (05:27)
[2020-04-27 07:25] LABS: Troponin I Less than 0.010 ng/mL (< 0.028)
--- NOTE | 2020-04-27 07:40 | RAD ---
Portable frontal chest radiograph: 04/27/2020 COMPARISON: 04/24/2019 HISTORY: Chest pain FINDINGS: Lungs are clear. Heart and mediastinal contours appear within normal limits. IMPRESSION: No acute findings.
--- NOTE | 2020-04-27 07:44 | CT ---
PRELIMINARY REPORT/[facility]/EMERGENCY AFTER HOURS PROCEDURE: EXAM: CTA Chest with Intravenous Contrast CLINICAL HISTORY: This Is a 45-year-old female who presents to the ED with a chief complaint of chest pain. She was diagnosed with a DVT approximately 3 weeks ago and is currently taking Xarelto. TECHNIQUE: Axial CTA images of the chest with intravenous contrast. Three-dimensional MIP/volume rend ered reformations were performed. CONTRAST: With; ISOVUE 370,100mL COMPARISON: None provided. FINDINGS: PULMONARY ARTERIES There is no intraluminal filling defect suspicious for PE. AORTA No thoracic aortic aneurysm or dissection. LUNGS The lungs are clear. No pulmonary mass. No focal airspace consolidation. PLEURAL SPACES No pleural effusion. No pneumothorax. HEART AND MEDIASTINUM No cardiomegaly. No significant pericardial effusion. LYMPH NODES No lymphadenopathy. BONES No focal osseous abnormality or acute fracture. CHEST WALL AND UPPER ABDOMEN Images through the upper abdomen are unremarkable. The chest wall is un remarkable. IMPRESSION: Unremarkable CTA of the chest. ELECTRONICALLY SIGNED BY: Chip Lim MD Apr 27, 2020 4:49:14 AM CDT FINAL REPORT CT ANGIOGRAM OF THE CHEST: HISTORY: Chest pain. COMPARISON: 04/10/2020. TECHNIQUE: CT angiogram of the chest is performed in the axial plane. Three-dimensional reformatted images are s ubmitted for interpretation. FINDINGS: Mediastinum: No mass, lymphadenopathy or hematoma. Heart: Normal size. No significant pericardial fluid. Aorta: No aneurysm or dissection. Upper solid abdominal viscera: No abnormality enhancement. Trachea and central bronchi: Patent. Pleural spaces: No effusion. Lung parenchyma: No masses or consolidation. Pneumothorax: None. Osseous structures: No lytic or blastic lesions. Pulmonary arteries: Adequate contrast opacification pulmonary arterial system to the level of lobar a rteries. No filling defect to suggest pulmonary embolism. Evaluation of the segmental and subsegmental arteries is limited due to timing of contrast bolus. IMPRESSION: 1. This report is in agreement with initial report by [facility]. 2. No evidence of pulmonary arterial embolism to the level of the lobar arteries. Transcribed Date/Time: 04/27/2020 8:39 AM
[2020-04-27] MEDS ORDERED: Morphine 2 MG/ML VIAL SLOW IVP PRN (08:21)
[2020-04-27] MEDS ORDERED: Regadenoson 0.4 MG/5 ML SYRINGE ONE (08:34)
[2020-04-27] MEDS ORDERED: Aspirin Chewable 81 MG TAB PO SCH (09:00)
--- NOTE | 2020-04-27 10:16 | PDOC.HHP ---
Hospitalist HPI - History of Present Illness Chest pain History of Present Illness: Ms. Silva is a 45-year-old female with past medical history of hypertension, COPD, CHF, obesity, anemia, anxiety/depression, tobacco use who presents for chest pain. Patient reports that earlier this morning at approximately 2 AM she was awoken from sleep with a dull pressure-like pain on the left side of her chest. Patient reports that she feels a squeezing sensation in her chest that lasted approximately 2 minutes and then resolves. This pain has been ongoing intermittently since yesterday morning. She reports mild shortness of breath during the 2 minutes She denies dizziness, lightheadedness, changes in vision. Her symptoms happen both at rest and when ambulating. Of note patiently was recently diagnosed with a DVT approximately 3 weeks ago and has been on Xarelto. She does also note pain in her lower extremity during these episodes. She denies nausea, vomiting, abdominal pain. In the ED initial vital signs 128/71, 64, 16, 96.1, 99% on room air. EKG showed normal sinus rhythm with incomplete left bundle branch block, stable from prior. Initial troponin 0 0.01, chest x-ray with no acute findings. Lipase 26. H/H 11.7/37.3, WBC 11.4. D-dimer -0.40. In the ED patient received 3 and 25 mg of aspirin, Toradol, nitro, morphine, GI cocktail. Patient currently denies chest pain at this time. Hospitalist ROS - Review of Systems Constitutional: denies: fever, chills, sweats, weakness, malaise, other Eyes: denies: pain, vision change, conjunctivae inflammation, eyelid inflammation, redness, other ENT: denies: ear pain, ear discharge, nose pain, nose discharge, nose congest ion, mouth pain, mouth swelling, throat pain, throat swelling, other Respiratory: denies: cough, dry, shortness of breath, hemoptysis, SOB with excertion, pleuritic pain, sputum, wheezing, other Cardiovascular: reports: chest pain. denies: palpitations, orthopnea, paroxysmal noc. dyspnea, edema, light headedness, other Gastrointestinal: denies: nausea, vomiting, abdominal pain, diarrhea, constipation, melena, hematochezia, other Genitourinary: denies: dysuria, frequency, incontinence, hematuria, retention, other Musculoskeletal: denies: neck pain, shoulder pain, arm pain, back pain, hand pain, leg pain, foot pain, other Skin: denies: rash, lesions, marcelo, bruising, other Neurological: denies: weakness, numbness, incoordination, change in speech, confusion, seizures, other - Medication Medications: Home medications include Lisinopril 10 mg Furosemide 80 mg Fluoxetine 20 mg Zyrtec 10 mg Iron 3 and 25 mg Amlodipine 10 mg Gabapentin 300 mg daily Naproxen 500 mg Xarelto 15 mg twice daily Allergies include Benadryl, promethazine,Sulfa drugs Hospitalist History - Past Medical History Other Medical History: Past medical history DVT 3 weeks ago on Xarelto Congestive heart failure Anemia Hypertension COPD Anxiety/depression - Past Surgical History Other Surgical History: Past surgical history includes Cholecystectomy Tubal ligation - Family History Other Family History: Family history significant for mother who had a heart attack in her 50s and a stroke. Patient also reports that diabetes runs in her family. - Social History Smoking Status: Current every day smoker Tobacco Type: cigarettes Alcohol: reports: None Drugs: reports: none Living Situation: With Family - Exam General Appearance: NAD, awake alert Eye: PERRL, anicteric sclera ENT: normocephalic atraumatic, no oropharyngeal lesions, moist mucosa Neck: supple, symmetric, no JVD, no thyromegaly, no lymphadenopathy, no carotid bruit Heart: RRR, no murmur, no gallops, no rubs, normal peripheral pulses Respiratory: CTAB, no wheezes, no rales, no ronchi, normal chest expansion, no tachypnea, normal percussion Gastrointestinal: soft, non-tender, non-distended, normal bowel sounds, no palpable masses, no hepatomegaly, no splenomegaly, no bruit Extremities: no cyanosis, no clubbing Extremities - other findings: Trace edema Skin: normal turgor, no lesions, no rashes Neurological: cranial nerve grossly intact, normal sensation to touch, no weakness, no focal deficits, no new deficit Musculoskeletal: normal tone, normal strength, no muscle wasting Psychiatric: normal affect, normal behavior, A&O x 3 Hospitalist Results - Labs Result Diagrams: 04/28/20 04:16 04/28/20 04:16 Lab results: WBC 11.4 thou/uL (4.8-10.8) H 04/27/20 03:55 Hgb 11.7 g/dL (12.0-16.0) L 04/27/20 03:55 Hct 37.3 % (36.0-47.0) 04/27/20 03:55 MCV 77.2 fL (78.0-98.0) L 04/27/20 03:55 Plt Count 213 thou/uL (130-400) 04/27/20 03:55 Neutrophils % 65.8 % (42.0-75.0) 04/27/20 03:55 Sodium 137 mmol/L (136-145) 04/27/20 03:55 Potassium 3.5 mmol/L (3.5-5.1) 04/27/20 03:55 Chloride 105 mmol/L (98-107) 04/27/20 03:55 Carbon Dioxide 20 mmol/L (22-29) L 04/27/20 03:55 BUN 17 mg/dL (7.0-18.7) 04/27/20 03:55 Creatinine 0.76 mg/dL (0.6-1.1) 04/27/20 03:55 Glucose 98 mg/dL (70-105) 04/27/20 03:55 Calcium 8.8 mg/dL (7.8-10.44) 04/27/20 03:55 Total Bilirubin 0.4 mg/dL (0.2-1.2) 04/27/20 03:55 AST 16 U/L (5-34) 04/27/20 03:55 ALT 17 U/L (8-55) 04/27/20 03:55 Alkaline Phosphatase 66 U/L (40-110) 04/27/20 03:55 Troponin I Less than 0.010 ng/mL (< 0.028) 04/27/20 06:46 Serum Total Protein 7.4 g/dL (6.0-8.3) 04/27/20 03:55 Albumin 3.6 g/dL (3.5-5.0) 04/27/20 03:55 Lipase 26 U/L (8-78) 04/27/20 03:55 Hospitalist H&P A/P - Plan Plan: Chest pain 45-year-old female with past medical history of DVT on Xarelto, CHF, anemia, hypertension, COPD, tobacco use presents for chest pain. EKG normal sinus rhythm with complete left bundle branch block. Initial troponin 0 0.01. Chest x-ray negative. D-dimer negative at 0.40. H/H 11.7/37.3. Patient received 325 mg of aspirin, morphine, and GI cocktail in the ED. Given patient's smoking history, obesity, family history of MIs, will pursue stress test. Plan Trend troponin Monitor electrolytes, magnesium, calcium Check TSH Stress test today, keep n.p.o. Continue to monitor symptoms Unprovoked DVT Patient with recent DVT approximately 3 weeks ago on Xarelto. D-dimer -0.40. Patient saturating at 99% on room air. No respiratory distress. Plan Continue Xarelto 15 mg twice daily Hypertension Continue home amlodipine 10 mg daily, lisinopril 10 mg daily. CHF History of CHF, echo in 2018 showed EF of 55 to 60%. On 80 mg daily of Lasix. On exam patient appears dry chest x-ray no infiltrates, trace edema to lower extremities. Plan Continue 80 mg Lasix Monitor fluid status Anxiety/depression History of anxiety depression we will continue home zoloft. Anemia History of iron deficiency anemia on iron supplement. H&H on admission 11.7/37.3. We will continue iron supplementation and monitor H/H. Neuropathy History of neuropathy continue home gabapentin DVT prophylaxis: On Xarelto Full code Case discussed with attending physician Dr. Yao.
[2020-04-27 10:23] LABS: Troponin I Less than 0.010 ng/mL (< 0.028)
[2020-04-27 12:55] LABS: SARS-CoV-2 MS2 Positive; SARS-CoV-2 N Gene Negative; SARS-CoV-2 S Gene Negative; SARS-CoV-2 by NAA Not Detected (NotDetected); SARS-CoV-2 orf1ab Negative
[2020-04-27] MEDS ORDERED: FLU VACC QS2020-21(6MOS UP)/PF 60 MCG/0.5 ML SYRINGE IM ONE (13:00)
[2020-04-27] MEDS: Ferrous Sulfate 325 MG TAB PO SCH ×3 (14:24→19:23)
[2020-04-27] MEDS ORDERED: Iopamidol 370 76% 100 ML VIAL ONE (14:37)
[2020-04-27] MEDS ORDERED: Furosemide 80 MG TAB PO SCH (16:15)
[2020-04-27] MEDS ORDERED: Amlodipine 10 MG TAB PO SCH (16:15)
[2020-04-27] MEDS: Acetaminophen 325 MG TAB PO PRN ×2 (17:22→23:55)
[2020-04-27] MEDS: Rivaroxaban 15 MG TAB PO SCH (17:22)
[2020-04-27] MEDS ORDERED: Gabapentin 300 MG CAP PO SCH (21:00)
[2020-04-28 04:47] LABS: #Basophils 0.1 thou/uL (0.0-0.2); #Eosinphils 0.2 thou/uL (0.0-0.7); #Monocytes 0.3 thou/uL (0.11-0.59); #Neutrophils 3.9 thou/uL (1.40-6.50); %Basophils 0.8 % (0.0-1.0); %Eosinophils 2.7 % (0.0-10.0); %Lymphocytes 31.3 % (21.0-51.0); %Monocytes 4.2 % (0.0-10.0); Hemoglobin 11.3 g/dL (12.0-16.0); Mean Corpuscular HGB CONC 31.7 g/dL (32.0-36.0); Mean Corpuscular Hemoglobin 23.9 pg (27.0-31.0); Mean Corpuscular Volume 75.5 fL (78.0-98.0); Mean Platelet Volume 11.9 fL (7.4-10.4); Platelet Count 198 thou/uL (130-400); RBC Distribution Width 15.6 % (11.5-14.5); Red Blood Cell (RBC) Count 4.74 mill/uL (4.20-5.40); White Blood Cell (WBC) Count 6.5 thou/uL (4.8-10.8)
[2020-04-28 05:28] LABS: Anion Gap 13 mmol/L (10-20); BUN (Urea Nitrogen) 14 mg/dL (7.0-18.7); Calc. Creatinine Clearance 284 mL/min (70-130); Calcium 8.6 mg/dL (7.8-10.44); Carbon Dioxide 23 mmol/L (22-29); Chloride 105 mmol/L (98-107); Estimated GFR-MDRD Greater than 90; Glucose 120 mg/dL (70-105); Potassium 3.1 mmol/L (3.5-5.1); Sodium 138 mmol/L (136-145)
[2020-04-28] MEDS: Acetaminophen 325 MG TAB PO PRN (07:10)
[2020-04-28] MEDS ORDERED: Potassium Chloride 20 MEQ TAB PO SCH (08:15)
[2020-04-28] MEDS ORDERED: Furosemide 80 MG TAB PO SCH ×2 (09:00)
[2020-04-28] MEDS ORDERED: FLUoxetine HCl 20 MG CAP PO SCH (09:00)
[2020-04-28] MEDS ORDERED: Amlodipine 10 MG TAB PO SCH ×2 (09:00)
[2020-04-28] MEDS ORDERED: Aspirin Chewable 81 MG TAB PO SCH (09:00)
[2020-04-28] MEDS ORDERED: Ascorbic Acid 500 mg Chewable Tablet PO SCH (09:00)
[2020-04-28] MEDS ORDERED: Lisinopril 10 MG TAB PO SCH (09:00)
[2020-04-28] MEDS: Ferrous Sulfate 325 MG TAB PO SCH ×2 (09:02→11:48)
[2020-04-28] MEDS: Rivaroxaban 15 MG TAB PO SCH (09:03)
--- NOTE | 2020-04-28 09:39 | NM ---
EXAM: CARDIAC SPECT HISTORY: Chest pain, COPD, hypertension, smoker TECHNIQUE: A myocardial perfusion scan was performed using the single isotope 2 day protocol with tip hnetium 99m sestamibi. [32 mCi] was injected intravenously for the rest exam followed by 33 mCifor the stress study. Pharmacologic stress with Lexiscan was monitored and interpreted by the physician's product safety technical assistant FINDINGS: Homogeneous tracer distribution is seen in the myocardial segments on stress and rest image s without fixed or reversible defects. Gated SPECT LVEF: 57% Wall motion exam: Normal IMPRESSION: Normal myocardial perfusion scan
[2020-04-28 12:28] VITALS: BP 125/82; TEMP 98.6
--- NOTE | 2020-04-28 14:39 | PDOC.HOSPP ---
- Subjective Encounter Date: 04/28/20 Encounter Time: 14:38 Subjective: Ms. Rodriguez was seen today in follow-up of chest pain. She does not have any new complaints. - Objective Vital Signs & Weight: Vital Signs (12 hours) Temp Pulse Resp BP BP Pulse Ox 04/28/20 12:13 98.6 F 65 20 125/82 100 04/28/20 07:33 98.3 F 53 L 18 115/72 99 04/28/20 04:10 98.4 F 60 20 113/68 96 Weight Weight 406 lb 6.4 oz I&O: 04/27/20 04/28/20 04/29/20 06:59 06:59 06:59 Intake Total 1650 Balance 1650 Result Diagrams: 04/28/20 04:16 04/28/20 04:16 Hospitalist ROS - Medication Medications: Active Medications Generic Name Dose Route Start Last Admin Trade Name Freq PRN Reason Stop Dose Admin Acetaminophen 650 mg 04/27/20 15:18 04/28/20 07:10 Acetaminophen 325 Mg Tab PO 650 mg Q6H PRN Administration Mild Pain (1-3) Amlodipine Besylate 10 mg 04/28/20 09:00 04/28/20 09:02 Amlodipine 10 Mg Tab PO 10 mg DAILY MYRANDA Administration Ascorbic Acid 500 mg 04/28/20 09:00 04/28/20 09:03 Ascorbic Acid 500 Mg Chewable Tablet PO 500 mg DAILY MYRANDA Administration Aspirin 81 mg 04/28/20 09:00 04/28/20 09:03 Aspirin Chewable 81 Mg Tab PO 81 mg DAILY MYRANDA Administration Ferrous Sulfate 325 mg 04/27/20 12:00 04/28/20 11:48 Ferrous Sulfate 325 Mg Tab PO 325 mg QID-WM MYRANDA Administration Furosemide 80 mg 04/28/20 09:00 04/28/20 09:03 Furosemide 80 Mg Tab PO 80 mg DAILY MYRANDA Administration Gabapentin 300 mg 04/27/20 21:00 04/27/20 19:23 Gabapentin 300 Mg Cap PO 300 mg HS MYRANDA Administration Lisinopril 10 mg 04/28/20 09:00 04/28/20 09:03 Lisinopril 10 Mg Tab PO 10 mg DAILY MYRANDA Administration Rivaroxaban 15 mg 04/27/20 17:00 04/28/20 09:03 Rivaroxaban 15 Mg Tab PO 15 mg BID-WM MYRANDA Administration Sertraline HCl 50 mg 10/16/20 09:00 04/28/20 09:03 Sertraline Hcl 100 Mg Tab PO 50 mg DAILY MYRANDA Administration Sodium Chloride 10 ml 04/27/20 09:00 04/28/20 09:03 Flush - Normal Saline 10 Ml Syringe IVF 10 ml Q12HR MYRANDA Administration - Exam Eye: PERRL, anicteric sclera Heart: RRR, no murmur, no gallops, no rubs, normal peripheral pulses Respiratory: CTAB, no wheezes, no rales, no ronchi, normal chest expansion, no tachypnea, normal percussion Gastrointestinal: soft, non-distended Hosp A/P (1) Chest pain Code(s): R07.9 - CHEST PAIN, UNSPECIFIED Status: Acute (2) Hypertension Code(s): I10 - ESSENTIAL (PRIMARY) HYPERTENSION Status: Chronic (3) Morbid (severe) obesity due to excess calories Code(s): E66.01 - MORBID (SEVERE) OBESITY DUE TO EXCESS CALORIES Status: Chronic - Plan * Chest pain- ? etiology * Trial of PPI for 30 days * Stable for discharge home
[2020-04-28] MEDS ORDERED: Rivaroxaban 15 MG TAB PO SCH (17:00)
--- NOTE | 2020-04-29 01:35 | DIS ---
DATE OF ADMISSION: 04/27/2020 DATE OF DISCHARGE: 04/28/2020 The patient's primary care is at the [facility]. DISCHARGE DISPOSITION: Home. DISCHARGE DIAGNOSES: 1. Chest pain, noncardiac. 2. Hypertension. 3. Morbid obesity. The patient is 5 feet 7 inches, 406 pounds with a BMI of 63.7. 4. Chronic obstructive pulmonary disease. 5. Congestive heart failure. 6. Anemia. 7. Deep venous thrombosis, on Xarelto. DISCHARGE MEDICATIONS: Include: 1. Protonix 40 mg p.o. daily. 2. Iron sulfate 325 mg p.o. q.i.d. 3. Zoloft 50 mg p.o. daily. 4. Xarelto 15 mg p.o. daily. 5. Vitamin C 500 mg p.o. daily. 6. Neurontin 300 mg p.o. at bedtime. 7. Meloxicam 15 mg p.o. at bedtime. 8. Lisinopril 10 mg p.o. daily. 9. Lasix 80 mg p.o. daily. 10. Fluoxetine 40 mg p.o. daily. 11. Calcium carbonate plus vitamin D one tablet daily. 12. Aspirin 81 mg daily. 13. Amlodipine 10 mg p.o. daily. 14. Acetaminophen 1000 mg as needed. IMAGING DONE DURING THE HOSPITAL STAY: The patient had a CT angiogram of the chest, which was negative for pulmonary embolism. The patient had a nuclear stress test showing normal wall motion and normal perfusion scan. The patient had an echocardiogram, in which the ejection fraction was estimated at 50% to 55%, the left ventricle wall thickness was on the upper range of normal, no significant valvular disease. CODE STATUS: Full code. ALLERGIES: TO DIPHENHYDRAMINE, PROMETHAZINE, SULFA-TRIMETHOPRIM. HOSPITAL COURSE: Ms. Rodriguez is a pleasant 45-year-old female, who was admitted to the hospital with complaints of chest pain. The full details of which are outlined in the history and physical by my colleague, Jo Armstrong PA-C. The patient was placed in observation, ruled out. The patient had a CT angiogram in the ER, which was negative. She also underwent nuclear stress test and echo, both of which were unremarkable. The patient still was having some intermittent chest pain off and on. It is unclear the etiology, but suspected possible GI related. We will place her on a trial of Protonix for 30 days. She is to have close outpatient followup, and also, we will send her with information on healthy eating habits and information on how to achieve a healthier weight. Job ID: [id number]
--- NOTE | 2020-04-29 11:16 | EKG ---
Test Reason : Blood Pressure : / mmHG Vent. Rate : 063 BPM Atrial Rate : 063 BPM P-R Int : 192 ms QRS Dur : 106 ms QT Int : 452 ms P-R-T Axes : 067 -26 047 degrees QTc Int : 462 ms Normal sinus rhythm Incomplete left bundle branch block Minimal voltage criteria for LVH, may be normal variant Borderline ECG Similar to 04/10/2020 Confirmed by CATE ANN ([id number]), material expeditor JUSTYNA PICKENS ([id number]) on 04/29/2020 11:15:54 AM Referred By: Confirmed By:CATE ANN
== END 2020-04-28 15:55 | disposition home or self-care (01) ==
LOC: ERS 03:34 → 2SW 05:46
PROVIDERS: ADMIT Internal Medicine; ATTEND Internal Medicine
DX: R07.89 Other chest pain (principal); I11.0 Hypertensive heart disease with heart failure; I50.9 Heart failure, unspecified; E66.01 Morbid (severe) obesity due to excess calories; J44.9 Chronic obstructive pulmonary disease, unspecified; D64.9 Anemia, unspecified; I82.409 Acute embolism and thrombosis of unspecified deep veins of unspecified lower extremity; F41.9 Anxiety disorder, unspecified; F32.9 Major depressive disorder, single episode, unspecified; G62.9 Polyneuropathy, unspecified; Z68.44 Body mass index [BMI] 60.0-69.9, adult; Z79.01 Long term (current) use of anticoagulants; Z79.82 Long term (current) use of aspirin; Z79.899 Other long term (current) drug therapy; Z88.2 Allergy status to sulfonamides; Z88.8 Allergy status to other drugs, medicaments and biological substances; Z20.828 Contact with and (suspected) exposure to other viral communicable diseases
CPT/HCPCS: 36415; 71045; 71275; 78452; 80048; 80053; 83690; 83735; 84443; 84484; 85025; 85379; 85610; 85730; 87635; 90471; 90662; 93005; 93017; 93306; 94760; 96374; 96375; A9500; G0008; G0378; J1885; J2270; J2785; Q9967; U0003

== ENCOUNTER 2020-06-24 12:33 | Emergency (ER) | payer OTHER, SELFPAY ==
[2020-06-24] MEDS ORDERED: Aspirin Chewable 81 MG TAB ONE (12:55)
[2020-06-24] MEDS ORDERED: Ondansetron PF 4 MG/2 ML Vial ONE (12:55)
[2020-06-24] MEDS ORDERED: Nitroglycerin 0.4 MG TAB 1 EACH ONE (12:55)
--- NOTE | 2020-06-24 13:13 | RAD ---
PORTABLE CHEST 1 VIEW: Date: 06/24/2020 Time: 1252 hours HISTORY: Headache and chest pain. FINDINGS: Comparison made with exam of 04/27/2020. The heart is enlarged. No lobar consolidation, pneumothoraces, sanna pulmonary edema, or pleural effu sions are seen. IMPRESSION: No acute process. POS: OFF
[2020-06-24 13:14] LABS: #Eosinphils 0.2 thou/uL (0.0-0.7); #Lymphocytes 2.5 thou/uL (1.20-3.40); #Monocytes 0.4 thou/uL (0.11-0.59); #Neutrophils 6.1 thou/uL (1.40-6.50); %Basophils 0.4 % (0.0-1.0); %Eosinophils 1.9 % (0.0-10.0); %Lymphocytes 26.8 % (21.0-51.0); %Monocytes 4.8 % (0.0-10.0); %Neutrophils 66.1 % (42.0-75.0); Hemoglobin 11.5 g/dL (12.0-16.0); Mean Corpuscular HGB CONC 31.5 g/dL (32.0-36.0); Mean Corpuscular Hemoglobin 23.3 pg (27.0-31.0); Mean Corpuscular Volume 74.2 fL (78.0-98.0); Mean Platelet Volume 11.7 fL (7.4-10.4); Platelet Count 196 thou/uL (130-400); RBC Distribution Width 15.3 % (11.5-14.5); Red Blood Cell (RBC) Count 4.92 mill/uL (4.20-5.40); White Blood Cell (WBC) Count 9.2 thou/uL (4.8-10.8)
[2020-06-24 13:27] LABS: Anisocytosis SLIGHT = 6-15 cells (100X) (0-5/hpf); Hypochromia SLIGHT = 6-15 cells (100X) (0-5/hpf); Large Platelets SLIGHT; MDiff Complete? YES; Microcytosis SLIGHT = 6-15 cells (100X) (0-5/hpf); Platelet Morphology Comment Appears Adequate; Polychromasia SLIGHT = 2-3 cells (100X) (0-2/hpf)
[2020-06-24 13:34] LABS: ALT (SGPT) 18 U/L (8-55); AST (SGOT) 18 U/L (5-34); Albumin 3.7 g/dL (3.5-5.0); Alkaline Phosphatase 72 U/L (40-110); Anion Gap 14 mmol/L (10-20); BUN (Urea Nitrogen) 13 mg/dL (7.0-18.7); Bilirubin, Total 0.9 mg/dL (0.2-1.2); Calc. Creatinine Clearance 0 mL/min (70-130); Calcium 8.6 mg/dL (7.8-10.44); Carbon Dioxide 23 mmol/L (22-29); Chloride 105 mmol/L (98-107); Globulin 3.8 g/dL (2.4-3.5); Glucose 105 mg/dL (70-105); Potassium 3.8 mmol/L (3.5-5.1); Protein, Total 7.5 g/dL (6.0-8.3); Sodium 138 mmol/L (136-145)
[2020-06-24] MEDS ORDERED: Acetaminophen 500 MG TAB ONE (13:43)
[2020-06-24 13:51] LABS: Bacteria/HPF None Seen HPF (None Seen); Bilirubin Negative (Negative); Blood, Urine Negative (Negative); Clarity Clear (Clear); Glucose, Urine (Dipstick) Normal (Negative); Ketone, Urine Negative (Negative); Leukocyte 25 Leu/uL (Negative); Nitrite Negative (Negative); Protein, Urine (Dipstick) Negative (Neg-Trace); RBC/HPF 0-3 HPF (0-3); Specific Gravity, Urine 1.015 (1.002-1.036); Squamous Epithelial 0-3 HPF (0-3); Urobilinogen Normal mg/dL (Less than 2); WBC/HPF 0-3 HPF (0-3); pH, Urine 6.5 (5.0-9.0)
[2020-06-24] MEDS ORDERED: hydrALAZINE 20 MG/ML VIAL ONE ×2 (14:06→16:04)
[2020-06-24] MEDS ORDERED: Metoclopramide HCl 10 MG/2 ML VIAL ONE (16:04)
--- NOTE | 2020-07-01 11:00 | EKG ---
Test Reason : Blood Pressure : / mmHG Vent. Rate : 056 BPM Atrial Rate : 056 BPM P-R Int : 190 ms QRS Dur : 096 ms QT Int : 474 ms P-R-T Axes : 047 -32 046 degrees QTc Int : 457 ms Sinus bradycardia Left axis deviation Cannot rule out Anterior infarct , age undetermined Abnormal ECG Confirmed by MOUNA SCHMID DO ([id number]), editor in chief JUSTYNA PICKENS ([id number]) on 07/01/2020 10:59:28 AM Referred By: Confirmed By:MOUNA SCHMID DO
== END 2020-06-24 17:41 | disposition home or self-care (01) ==
LOC: ERS 12:33
DX: R07.89 Other chest pain (principal); I11.0 Hypertensive heart disease with heart failure; I50.9 Heart failure, unspecified; D64.9 Anemia, unspecified; E66.9 Obesity, unspecified; J44.9 Chronic obstructive pulmonary disease, unspecified; Z87.891 Personal history of nicotine dependence; Z79.01 Long term (current) use of anticoagulants; Z79.899 Other long term (current) drug therapy
CPT/HCPCS: 36415; 71045; 80053; 81003; 81015; 84484; 85025; 93005; 96365; 96375; 96376; J0360; J2405; J2765

== ENCOUNTER 2020-07-29 17:29 | Inpatient (IN) | payer SELFPAY ==
[2020-07-29 18:11] LABS: #Lymphocytes 1.9 thou/uL (1.20-3.40); #Monocytes 0.1 thou/uL (0.11-0.59); #Neutrophils 3.5 thou/uL (1.40-6.50); %Basophils 0.2 % (0.0-1.0); %Eosinophils 0.1 % (0.0-10.0); %Lymphocytes 33.5 % (21.0-51.0); %Monocytes 2.3 % (0.0-10.0); %Neutrophils 63.9 % (42.0-75.0); Hemoglobin 13.2 g/dL (12.0-16.0); Mean Corpuscular HGB CONC 31.9 g/dL (32.0-36.0); Mean Corpuscular Hemoglobin 23.3 pg (27.0-31.0); Mean Corpuscular Volume 72.8 fL (78.0-98.0); Mean Platelet Volume 12.4 fL (7.4-10.4); Platelet Count 187 thou/uL (130-400); RBC Distribution Width 15.8 % (11.5-14.5); Red Blood Cell (RBC) Count 5.69 mill/uL (4.20-5.40); White Blood Cell (WBC) Count 5.5 thou/uL (4.8-10.8)
--- NOTE | 2020-07-29 18:14 | RAD ---
XR Chest 1 View Portable HISTORY: Cough, chest pain COMPARISON: 06/24/2020 FINDINGS: The heart is enlarged. The aorta is tortuous. No lobar consolidation, pneumothoraces or ple ural effusions are seen. Mild ill-defined opacities is seen in the right lung base and left midlung.
[2020-07-29 18:29] LABS: Large Platelets SLIGHT; MDiff Complete? YES; Microcytosis SLIGHT = 6-15 cells (100X) (0-5/hpf); Ovalocytes SLIGHT = 2-5 cells (100X) (0-1/hpf); Platelet Morphology Comment Appears Adequate; Target Cells SLIGHT = 2-5 cells (100X) (0-1/hpf)
[2020-07-29 18:29] LABS: ALT (SGPT) 27 U/L (8-55); AST (SGOT) 50 U/L (5-34); Albumin 3.9 g/dL (3.5-5.0); Alkaline Phosphatase 106 U/L (40-110); Anion Gap 15 mmol/L (10-20); BUN (Urea Nitrogen) 7 mg/dL (7.0-18.7); Bilirubin, Total 0.3 mg/dL (0.2-1.2); CK (CPK) 459 U/L (29-168); Calc. Creatinine Clearance 0 mL/min (70-130); Calcium 8.6 mg/dL (7.8-10.44); Carbon Dioxide 25 mmol/L (22-29); Chloride 104 mmol/L (98-107); Globulin 4.4 g/dL (2.4-3.5); Glucose 106 mg/dL (70-105); Potassium 3.4 mmol/L (3.5-5.1); Protein, Total 8.3 g/dL (6.0-8.3); Sodium 141 mmol/L (136-145)
[2020-07-29] MEDS ORDERED: cefTRIAXone\\ROCEPHIN 1 GM VIAL ONE (18:31)
[2020-07-29] MEDS ORDERED: Azithromycin 500 MG VIAL ONE (18:31)
[2020-07-29] MEDS ORDERED: Dexamethasone 10 MG/ML VIAL ONE (18:33)
[2020-07-29 19:00] LABS: SARS-CoV-2 NAA Rapid Test DETECTED (NotDetected)
[2020-07-29] MEDS ORDERED: Dextrose 50% Abboject 50 ML SYRINGE SLOW IVP PRN (20:05)
[2020-07-29] MEDS ORDERED: Dextrose 5% in Water 1,000 ML IV PRN (20:05)
[2020-07-29] MEDS ORDERED: Potassium Chloride 20 MEQ TAB PO SCH (20:15)
--- NOTE | 2020-07-29 20:31 | PDOC.HHP ---
Hospitalist HPI - History of Present Illness Cough, shortness of breath History of Present Illness: This a 45-year-old female patient history of CHF, DVT on Xarelto who comes in complaining of cough fever nausea for the past couple of days. She notes having been exposed to someone with Covid a few days ago. She test positive for Covid today. She admits to ongoing cough and shortness of breath with chest pain with cough. Cough is productive of whitish sputum with occasional bloodstained. She denies any active chest pain besides chest pain on coughing. She denies any diarrhea current ongoing fevers. Symptoms became worse thus she came to the ED today for further evaluation. At presentation oxygen saturation went as low as 88% on room air and 85% at home. Also has hypertension with BP 164/91, pulse 87 and respiratory 20. Temperature was 100.6. Labs showed potassium 3.4 otherwise normal renal function. CBC was unremarkable. Covid test was positive. Chest x-ray showed An enlarged heart w ith mild ill-defined opacities in the right lung base and She was given azithromycin and Rocephin as well as Decadron. Hospitalist team was consulted for admission. Hospitalist ROS - Review of Systems Constitutional: reports: fever, weakness, malaise. denies: chills, sweats Respiratory: reports: cough, shortness of breath, hemoptysis, SOB with excertion Cardiovascular: reports: chest pain. denies: palpitations, orthopnea, paroxysmal noc. dyspnea, edema Gastrointestinal: denies: nausea, vomiting, abdominal pain Genitourinary: denies: dysuria, frequency, incontinence All other systems reviewed; all pertinent +/- noted in HPI/Subj - Medication Medications: Medications: Can refer to ambulatory list. Allergies: 4, promethazine, diphenhydramine Hospitalist History - Past Medical History Other Medical History: CHF, diabetes mellitus, hypertension, pulmonary embolism. COPD - Past Surgical History Other Surgical History: Bilateral tubal ligation. Hysterectomy, section - Family History Family History: reports: no pertinent history - Social History Smoking Status: Former smoker Alcohol: reports: None Drugs: reports: none Living Situation: Alone Activity level: independent ambulation - Exam General Appearance: awake alert General - other findings: In bed, coughing. Severely obese Eye: PERRL, anicteric sclera ENT: normocephalic atraumatic, no oropharyngeal lesions Heart: RRR, no murmur, no gallops, no rubs Respiratory: no wheezes, no ronchi Gastrointestinal: soft, non-tender, non-distended, normal bowel sounds Extremities: no cyanosis, no clubbing, no edema Neurological: cranial nerve grossly intact, no focal deficits Psychiatric: normal affect, normal behavior, A&O x 3 Hospitalist Results - Labs Result Diagrams: 07/29/20 17:45 07/29/20 17:57 Lab results: WBC 5.5 thou/uL (4.8-10.8) 07/29/20 17:45 Hgb 13.2 g/dL (12.0-16.0) 07/29/20 17:45 Hct 41.4 % (36.0-47.0) 07/29/20 17:45 MCV 72.8 fL (78.0-98.0) L 07/29/20 17:45 Plt Count 187 thou/uL (130-400) 07/29/20 17:45 Neutrophils % 63.9 % (42.0-75.0) 07/29/20 17:45 Sodium 141 mmol/L (136-145) 07/29/20 17:57 Potassium 3.4 mmol/L (3.5-5.1) L 07/29/20 17:57 Chloride 104 mmol/L (98-107) 07/29/20 17:57 Carbon Dioxide 25 mmol/L (22-29) 07/29/20 17:57 BUN 7 mg/dL (7.0-18.7) 07/29/20 17:57 Creatinine 0.80 mg/dL (0.6-1.1) 07/29/20 17:57 Glucose 106 mg/dL (70-105) H 07/29/20 17:57 Lactic Acid 1.3 mmol/L (0.5-2.2) 07/29/20 18:21 Calcium 8.6 mg/dL (7.8-10.44) 07/29/20 17:57 Total Bilirubin 0.3 mg/dL (0.2-1.2) 07/29/20 17:57 AST 50 U/L (5-34) H 07/29/20 17:57 ALT 27 U/L (8-55) 07/29/20 17:57 Alkaline Phosphatase 106 U/L (40-110) 07/29/20 17:57 Creatine Kinase 459 U/L (29-168) H 07/29/20 17:57 Troponin I Less than 0.010 ng/mL (< 0.028) 07/29/20 17:57 Serum Total Protein 8.3 g/dL (6.0-8.3) 07/29/20 17:57 Albumin 3.9 g/dL (3.5-5.0) 07/29/20 17:57 Hospitalist H&P A/P - Plan Plan: This is a 45-year-old female patient history of COPD, CHF and recent DVT presenting with ongoing cough shortness of breath and positive for Covid. Acute hypoxic respiratory failure Oxygen saturation Tyler 80s on room air. Continue oxygen therapy Pulmonary consult if deteriorates. Pneumonia due to Covid Oxygen therapy Zinc vitamin C/D Check CRP D-dimer and ferritin Continue steroids Hypokalemia Mildreplace potassium Magnesium level in a.m. DVT Continue Xarelto COPD Possible exacerbation Continue antibiotics and breathing treatments as needed CHF Does not appear to be in acute exacerbation Continue home medications Diabetes if necessary. Diabetes mellitus Standard correctional insulin Monitor glucose. CODE STATUSfull code VT prophylaxiscontinue Xarelto
[2020-07-29 21:44] VITALS: BMI 62.2
[2020-07-29] MEDS: cefTRIAXone\\ROCEPHIN 1 GM in Sodium Chloride 0.9% 100 ML IVPB SCH (21:52)
[2020-07-29] MEDS ORDERED: Meloxicam 15 MG TAB PO SCH (22:45)
[2020-07-29] MEDS ORDERED: Gabapentin 300 MG CAP PO SCH (22:45)
[2020-07-30] MEDS: HumaLOG 300 UNITS/3 ML VIAL SC PRN (05:49)
[2020-07-30 06:30] LABS: #Basophils 0.1 thou/uL (0.0-0.2); #Monocytes 0.1 thou/uL (0.11-0.59); #Neutrophils 1.8 thou/uL (1.40-6.50); %Basophils 2.9 % (0.0-1.0); %Eosinophils 0.1 % (0.0-10.0); %Lymphocytes 32.4 % (21.0-51.0); %Monocytes 4.7 % (0.0-10.0); %Neutrophils 59.8 % (42.0-75.0); Mean Corpuscular HGB CONC 31.3 g/dL (32.0-36.0); Mean Corpuscular Hemoglobin 22.7 pg (27.0-31.0); Mean Corpuscular Volume 72.7 fL (78.0-98.0); Platelet Count 179 thou/uL (130-400); RBC Distribution Width 15.7 % (11.5-14.5); Red Blood Cell (RBC) Count 5.29 mill/uL (4.20-5.40)
[2020-07-30 06:52] LABS: Anion Gap 14 mmol/L (10-20); BUN (Urea Nitrogen) 8 mg/dL (7.0-18.7); Calc. Creatinine Clearance 267 mL/min (70-130); Calcium 8.2 mg/dL (7.8-10.44); Carbon Dioxide 24 mmol/L (22-29); Chloride 106 mmol/L (98-107); Glucose 172 mg/dL (70-105); Sodium 140 mmol/L (136-145)
[2020-07-30 07:17] LABS: CRP (Inflammatory) 1.14 mg/dL (= or < 0.5); Magnesium 2.1 mg/dL (1.6-2.6)
[2020-07-30] MEDS: Zinc Sulfate 220 MG CAP PO SCH (07:59)
[2020-07-30] MEDS: Amlodipine 10 MG TAB PO SCH (07:59)
[2020-07-30] MEDS: Aspirin Chewable 81 MG TAB PO SCH (07:59)
[2020-07-30] MEDS: Rivaroxaban 15 MG TAB PO SCH (07:59)
[2020-07-30] MEDS: Acetaminophen 500 MG TAB PO PRN (07:59)
[2020-07-30] MEDS: Ascorbic Acid 500 mg Chewable Tablet PO SCH (07:59)
[2020-07-30] MEDS: Cholecalciferol (Vitamin D3) 400 UNITS TAB PO SCH (07:59)
[2020-07-30] MEDS: Dexamethasone 4 mg/ml Vial SLOW IVP SCH (08:00)
[2020-07-30] MEDS: Lisinopril 10 MG TAB PO SCH (08:00)
--- NOTE | 2020-07-30 16:15 | PDOC.HOSPP ---
- Subjective Encounter Date: 07/30/20 Encounter Time: 16:13 Subjective: Ms. Rodriguez was seen today in follow-up of COVID pneumonia. She says she feels better. Her breathing has improved. She is able to ambulate more, without severe dyspnea. When asked when her symptoms began, she tells me last Friday ( Friday a week ago). - Objective Vital Signs & Weight: Vital Signs (12 hours) Temp Pulse Resp BP Pulse Ox 07/30/20 16:05 98.2 F 62 18 131/84 95 07/30/20 11:31 98.1 F 65 20 147/90 H 94 L 07/30/20 08:54 94 L 07/30/20 07:59 61 07/30/20 07:36 98.0 F 61 18 135/78 94 L Weight Weight 397 lb 9 oz Result Diagrams: 07/30/20 06:20 07/30/20 06:20 Additional Labs: Accuchecks 07/30/20 07/29/20 04:38 22:57 POC Glucose 168 H 150 H Hospitalist ROS - Medication Medications: Active Medications Generic Name Dose Route Start Last Admin Trade Name Freq PRN Reason Stop Dose Admin Acetaminophen 1,000 mg 07/29/20 22:25 07/30/20 07:59 Acetaminophen 500 Mg Tab PO 1,000 mg Q6H PRN Administration Mild Pain (1-3) Amlodipine Besylate 10 mg 07/30/20 09:00 07/30/20 07:59 Amlodipine 10 Mg Tab PO 10 mg DAILY MYRANDA Administration Ascorbic Acid 1,000 mg 07/30/20 09:00 07/30/20 07:59 Ascorbic Acid 500 Mg Chewable Tablet PO 1,000 mg DAILY MYRANDA Administration Aspirin 81 mg 07/30/20 09:00 07/30/20 07:59 Aspirin Chewable 81 Mg Tab PO 81 mg DAILY MYRANDA Administration Cholecalciferol 400 units 07/30/20 09:00 07/30/20 07:59 Cholecalciferol (Vitamin D3) 400 Units Tab PO 400 units DAILY MYRANDA Administration Dexamethasone 8 mg 07/30/20 09:00 07/30/20 08:00 Dexamethasone 4 Mg/Ml Vial SLOW IVP 8 mg DAILY MYRANDA Administration Ceftriaxone Sodium 1 gm/ 100 mls @ 200 mls/hr 07/29/20 20:00 07/29/20 21:52 Sodium Chloride IVPB Not Given Q24HR [facility] Insulin Human Lispro 0 units 07/29/20 20:05 07/30/20 05:49 Humalog 300 Units/3 Ml Vial SC 2 unit .MILD SLIDING SCALE PRN Administration Mild Correctional Scale Lisinopril 10 mg 07/30/20 09:00 07/30/20 08:00 Lisinopril 10 Mg Tab PO 10 mg DAILY MYRANDA Administration Rivaroxaban 15 mg 07/30/20 09:00 07/30/20 07:59 Rivaroxaban 15 Mg Tab PO 15 mg DAILY MYRANDA Administration Zinc Sulfate 220 mg 07/30/20 09:00 07/30/20 07:59 Zinc Sulfate 220 Mg Cap PO 220 mg DAILY MYRANDA Administration - Exam Eye: PERRL, anicteric sclera Heart: RRR, no murmur, no gallops, no rubs, normal peripheral pulses Respiratory: CTAB, no wheezes, no rales, no ronchi, normal chest expansion, no tachypnea, normal percussion Gastrointestinal: soft, non-tender, non-distended, normal bowel sounds, no palpable masses, no hepatomegaly Extremities: no cyanosis, no clubbing, 1+ LE edema Hosp A/P (1) Pneumonia due to COVID-19 virus Code(s): U07.1 - COVID-19; J12.82 - PNEUMONIA DUE TO CORONAVIRUS DISEASE 2019 Status: Acute (2) Acute respiratory failure with hypoxemia Code(s): J96.01 - ACUTE RESPIRATORY FAILURE WITH HYPOXIA Status: Acute (3) Hypertension Code(s): I10 - ESSENTIAL (PRIMARY) HYPERTENSION Status: Chronic (4) Morbid (severe) obesity due to excess calories Code(s): E66.01 - MORBID (SEVERE) OBESITY DUE TO EXCESS CALORIES Status: Chronic - Plan * Acute respiratory failure with hypoxemia due to COVID pneumonia- Will continue Decadron. She is within the window for the use of Remdesivir. I have discussed the EUA of this medication as well as the risk and possible benefits. She agrees to this therapy. Will request this medication * Chronic diastolic heart failure- compensated * HTN- blood pressure is stable
[2020-07-30] MEDS ORDERED: REMDESIVIR (EUA) 200 MG in Sodium Chloride 0.9% 250 ML 210 ML IV SCH (17:00)
[2020-07-30] MEDS: cefTRIAXone\\ROCEPHIN 1 GM in Sodium Chloride 0.9% 100 ML IVPB SCH (20:27)
[2020-07-30] MEDS: Gabapentin 300 MG CAP PO SCH (21:25)
[2020-07-30] MEDS: Meloxicam 15 MG TAB PO SCH (21:26)
[2020-07-31 06:29] LABS: ALT (SGPT) 21 U/L (8-55); AST (SGOT) 31 U/L (5-34); Albumin 3.4 g/dL (3.5-5.0); Alkaline Phosphatase 80 U/L (40-110); Anion Gap 15 mmol/L (10-20); BUN (Urea Nitrogen) 13 mg/dL (7.0-18.7); Bilirubin, Direct 0.1 mg/dL (0.1-0.3); Bilirubin, Total 0.2 mg/dL (0.2-1.2); Calc. Creatinine Clearance 274 mL/min (70-130); Calcium 8.3 mg/dL (7.8-10.44); Carbon Dioxide 24 mmol/L (22-29); Chloride 109 mmol/L (98-107); Glucose 117 mg/dL (70-105); Potassium 3.6 mmol/L (3.5-5.1); Protein, Total 7.3 g/dL (6.0-8.3); Sodium 144 mmol/L (136-145)
[2020-07-31] MEDS: Ascorbic Acid 500 mg Chewable Tablet PO SCH ×2 (08:56→10:27)
[2020-07-31] MEDS: Aspirin Chewable 81 MG TAB PO SCH (08:56)
[2020-07-31] MEDS: Lisinopril 10 MG TAB PO SCH (08:57)
[2020-07-31] MEDS: Cholecalciferol (Vitamin D3) 400 UNITS TAB PO SCH (08:57)
[2020-07-31] MEDS: Dexamethasone 4 mg/ml Vial SLOW IVP SCH (08:57)
[2020-07-31] MEDS: Zinc Sulfate 220 MG CAP PO SCH (08:57)
[2020-07-31] MEDS: Amlodipine 10 MG TAB PO SCH (08:57)
[2020-07-31] MEDS ORDERED: Non-Formulary Item 1 EACH (Sertraline Hcl [Zoloft] 50 MG Tablet) PO SCH (09:23)
[2020-07-31] MEDS ORDERED: Furosemide 20 MG TAB PO SCH (09:24)
[2020-07-31] MEDS ORDERED: Furosemide 80 MG TAB PO SCH (09:45)
[2020-07-31] MEDS: Calcium Carbonate 600 MG + Vit D TAB PO SCH (10:27)
[2020-07-31] MEDS: Rivaroxaban 15 MG TAB PO SCH (10:28)
[2020-07-31] MEDS: Acetaminophen 500 MG TAB PO PRN (11:35)
[2020-07-31] MEDS: REMDESIVIR (EUA) 100 MG in Sodium Chloride 0.9% 250 ML 230 ML IV SCH (17:12)
[2020-07-31] MEDS: HumaLOG 300 UNITS/3 ML VIAL SC PRN (17:12)
--- NOTE | 2020-07-31 17:24 | PDOC.HOSPP ---
- Subjective Encounter Date: 07/31/20 Encounter Time: 17:22 Subjective: Ms. Rodriguez was seen today in follow-up of COVID pneumonia. She says she is feeling better. She says last night she had a lot of phlem, but after she coughed it up she has felt better since. - Objective Vital Signs & Weight: Vital Signs (12 hours) Temp Pulse Resp BP Pulse Ox 07/31/20 09:15 57 L 96 07/31/20 09:00 95 07/31/20 07:29 98.0 F 48 L 18 127/76 96 Weight Weight 397 lb 9 oz I&O: 07/30/20 07/31/20 08/01/20 06:59 06:59 06:59 Intake Total 830 Balance 830 Result Diagrams: 07/30/20 06:20 07/31/20 05:42 Additional Labs: Accuchecks 07/31/20 07/31/20 07/31/20 16:26 11:02 04:47 POC Glucose 172 H 120 H 126 H 07/30/20 07/30/20 20:17 11:34 POC Glucose 133 H 133 H Hospitalist ROS - Medication Medications: Active Medications Generic Name Dose Route Start Last Admin Trade Name Freq PRN Reason Stop Dose Admin Acetaminophen 1,000 mg 07/29/20 22:25 07/31/20 11:35 Acetaminophen 500 Mg Tab PO 1,000 mg Q6H PRN Administration Mild Pain (1-3) Amlodipine Besylate 10 mg 07/30/20 09:00 07/31/20 08:57 Amlodipine 10 Mg Tab PO 10 mg DAILY MYRANDA Administration Ascorbic Acid 1,000 mg 07/30/20 09:00 07/31/20 08:56 Ascorbic Acid 500 Mg Chewable Tablet PO 1,000 mg DAILY MYRANDA Administration Ascorbic Acid 500 mg 07/31/20 09:00 07/31/20 10:27 Ascorbic Acid 500 Mg Chewable Tablet PO Not Given DAILY MYRANDA Aspirin 81 mg 07/30/20 09:00 07/31/20 08:56 Aspirin Chewable 81 Mg Tab PO 81 mg DAILY MYRANDA Administration Calcium/Vitamin D 2 tab 07/31/20 09:00 07/31/20 10:27 Calcium Carbonate 600 Mg + Vit D Tab PO 2 tab DAILY MYRANDA Administration Cholecalciferol 400 units 07/30/20 09:00 07/31/20 08:57 Cholecalciferol (Vitamin D3) 400 Units Tab PO 400 units DAILY MYRANDA Administration Dexamethasone 8 mg 07/30/20 09:00 07/31/20 08:57 Dexamethasone 4 Mg/Ml Vial SLOW IVP 8 mg DAILY MYRANDA Administration Gabapentin 300 mg 07/30/20 21:00 07/30/20 21:25 Gabapentin 300 Mg Cap PO 300 mg HS MYRANDA Administration Ceftriaxone Sodium 1 gm/ 100 mls @ 200 mls/hr 07/29/20 20:00 07/30/20 20:27 Sodium Chloride IVPB 100 mls Q24HR MYRANDA Administration Insulin Human Lispro 0 units 07/29/20 20:05 07/30/20 05:49 Humalog 300 Units/3 Ml Vial SC 2 unit .MILD SLIDING SCALE PRN Administration Mild Correctional Scale Lisinopril 10 mg 07/30/20 09:00 07/31/20 08:57 Lisinopril 10 Mg Tab PO 10 mg DAILY MYRANDA Administration Meloxicam 15 mg 07/30/20 21:00 07/30/20 21:26 Meloxicam 15 Mg Tab PO 15 mg HS MYRANDA Administration Rivaroxaban 15 mg 07/30/20 09:00 07/31/20 10:28 Rivaroxaban 15 Mg Tab PO 15 mg DAILY MYRANDA Administration Sertraline HCl 50 mg 07/31/20 09:00 07/31/20 10:28 Sertraline Hcl 25 Mg Tab PO 50 mg DAILY MYRANDA Administration Zinc Sulfate 220 mg 07/30/20 09:00 07/31/20 08:57 Zinc Sulfate 220 Mg Cap PO Not Given DAILY MYRANDA - Exam Eye: PERRL, anicteric sclera Heart: RRR, no murmur, no gallops, no rubs, normal peripheral pulses Respiratory: rales (at both bases and distant heart sounds) Gastrointestinal: soft, non-tender, non-distended, normal bowel sounds, no palpable masses, no hepatomegaly Extremities: no cyanosis, no edema Hosp A/P (1) Pneumonia due to COVID-19 virus Code(s): U07.1 - COVID-19; J12.82 - PNEUMONIA DUE TO CORONAVIRUS DISEASE 2019 Status: Acute (2) Acute respiratory failure with hypoxemia Code(s): J96.01 - ACUTE RESPIRATORY FAILURE WITH HYPOXIA Status: Acute (3) Hypertension Code(s): I10 - ESSENTIAL (PRIMARY) HYPERTENSION Status: Chronic (4) Morbid (severe) obesity due to excess calories Code(s): E66.01 - MORBID (SEVERE) OBESITY DUE TO EXCESS CALORIES Status: Chronic (5) Depression Code(s): F32.9 - MAJOR DEPRESSIVE DISORDER, SINGLE EPISODE, UNSPECIFIED Status: Acute - Plan * Acute respiratory failure with hypoxemia due to COVID pneumonia- Will continue Decadron. She has been started on Remdesivir * Chronic diastolic heart failure- compensated- re-start Lasix * HTN- blood pressure is stable * Depression- will re-start Zoloft
[2020-07-31] MEDS: Meloxicam 15 MG TAB PO SCH (20:05)
[2020-07-31] MEDS: Gabapentin 300 MG CAP PO SCH (20:05)
[2020-07-31] MEDS: cefTRIAXone\\ROCEPHIN 1 GM in Sodium Chloride 0.9% 100 ML IVPB SCH (20:05)
[2020-08-01 07:09] LABS: ALT (SGPT) 28 U/L (8-55); AST (SGOT) 35 U/L (5-34); Albumin 3.4 g/dL (3.5-5.0); Alkaline Phosphatase 80 U/L (40-110); Bilirubin, Direct 0.2 mg/dL (0.1-0.3); Bilirubin, Total 0.3 mg/dL (0.2-1.2)
[2020-08-01] MEDS: Aspirin Chewable 81 MG TAB PO SCH (08:19)
[2020-08-01] MEDS: Rivaroxaban 15 MG TAB PO SCH (08:19)
[2020-08-01] MEDS: Cholecalciferol (Vitamin D3) 400 UNITS TAB PO SCH ×2 (08:19→12:31)
[2020-08-01] MEDS: Zinc Sulfate 220 MG CAP PO SCH (08:19)
[2020-08-01] MEDS: Calcium Carbonate 600 MG + Vit D TAB PO SCH (08:21)
[2020-08-01] MEDS: Ascorbic Acid 500 mg Chewable Tablet PO SCH ×2 (08:21→08:22)
[2020-08-01] MEDS: Amlodipine 10 MG TAB PO SCH (08:22)
[2020-08-01] MEDS: Furosemide 80 MG TAB PO SCH (08:22)
[2020-08-01] MEDS: Lisinopril 10 MG TAB PO SCH (08:22)
[2020-08-01] MEDS: Dexamethasone 4 mg/ml Vial SLOW IVP SCH (08:23)
[2020-08-01 08:37] LABS: Anion Gap 17 mmol/L (10-20); Calcium 8.2 mg/dL (7.8-10.44); Carbon Dioxide 23 mmol/L (22-29); Chloride 108 mmol/L (98-107); Potassium 3.7 mmol/L (3.5-5.1); Sodium 144 mmol/L (136-145)
[2020-08-01 08:56] LABS: BUN (Urea Nitrogen) 15 mg/dL (7.0-18.7); Calc. Creatinine Clearance 303 mL/min (70-130); Glucose 90 mg/dL (70-105)
[2020-08-01] MEDS ORDERED: Non-Formulary Item 1 EACH (Calcium Carbonate/Vitamin D3 [Calcium 600-Vit D3 200 Tablet] 1 PO SCH (09:00)
[2020-08-01] MEDS ORDERED: Non-Formulary Item 1 EACH (Ascorbic Acid [Vitamin C Chewable Tablet] 250 MG Tab.Chew) PO SCH (09:00)
[2020-08-01] MEDS: REMDESIVIR (EUA) 100 MG in Sodium Chloride 0.9% 250 ML 230 ML IV SCH (17:18)
--- NOTE | 2020-08-01 17:30 | PDOC.HOSPP ---
- Subjective Encounter Date: 08/01/20 Encounter Time: 17:28 Subjective: Ms. Rodriguez was seen today in follow-up of COVID pneumonia. She says she is feeling better She says she has been ambulating without difficulty. - Objective Vital Signs & Weight: Vital Signs (12 hours) Temp Pulse Resp BP Pulse Ox 08/01/20 08:25 100 08/01/20 08:00 98.3 F 52 L 20 131/78 100 08/01/20 05:41 98.1 F 60 18 145/91 H 97 Weight Weight 397 lb 9 oz I&O: 07/31/20 08/01/20 08/02/20 06:59 06:59 06:59 Intake Total 830 1300 Balance 830 1300 Result Diagrams: 07/30/20 06:20 08/01/20 06:10 Additional Labs: Accuchecks 08/01/20 08/01/20 08/01/20 15:56 11:58 04:56 POC Glucose 102 H 126 H 86 07/31/20 19:56 POC Glucose 121 H Hospitalist ROS - Medication Medications: Active Medications Generic Name Dose Route Start Last Admin Trade Name Freq PRN Reason Stop Dose Admin Acetaminophen 1,000 mg 07/29/20 22:25 07/31/20 11:35 Acetaminophen 500 Mg Tab PO 1,000 mg Q6H PRN Administration Mild Pain (1-3) Amlodipine Besylate 10 mg 07/30/20 09:00 08/01/20 08:22 Amlodipine 10 Mg Tab PO 10 mg DAILY MYRANDA Administration Ascorbic Acid 1,000 mg 07/30/20 09:00 08/01/20 08:21 Ascorbic Acid 500 Mg Chewable Tablet PO 1,000 mg DAILY MYRANDA Administration Aspirin 81 mg 07/30/20 09:00 08/01/20 08:19 Aspirin Chewable 81 Mg Tab PO 81 mg DAILY MYRANDA Administration Calcium/Vitamin D 2 tab 07/31/20 09:00 08/01/20 08:21 Calcium Carbonate 600 Mg + Vit D Tab PO 2 tab DAILY MYRANDA Administration Cholecalciferol 400 units 07/30/20 09:00 08/01/20 12:31 Cholecalciferol (Vitamin D3) 400 Units Tab PO Not Given DAILY MYRANDA Dexamethasone 8 mg 07/30/20 09:00 08/01/20 08:23 Dexamethasone 4 Mg/Ml Vial SLOW IVP 8 mg DAILY MYRANDA Administration Furosemide 80 mg 08/01/20 09:00 08/01/20 08:22 Furosemide 80 Mg Tab PO 80 mg DAILY MYRANDA Administration Gabapentin 300 mg 07/30/20 21:00 07/31/20 20:05 Gabapentin 300 Mg Cap PO 300 mg HS MYRANDA Administration Ceftriaxone Sodium 1 gm/ 100 mls @ 200 mls/hr 07/29/20 20:00 07/31/20 20:05 Sodium Chloride IVPB 100 mls Q24HR MYRANDA Administration Remdesivir 100 mg/ Sodium 250 mls @ 250 mls/hr 07/31/20 17:00 08/01/20 17:18 Chloride IV 08/03/20 17:59 250 mls 1700 MYRANDA Administration Insulin Human Lispro 0 units 07/29/20 20:05 07/31/20 17:12 Humalog 300 Units/3 Ml Vial SC 2 unit .MILD SLIDING SCALE PRN Administration Mild Correctional Scale Lisinopril 10 mg 07/30/20 09:00 08/01/20 08:22 Lisinopril 10 Mg Tab PO 10 mg DAILY MYRANDA Administration Meloxicam 15 mg 07/30/20 21:00 07/31/20 20:05 Meloxicam 15 Mg Tab PO 15 mg HS MYRANDA Administration Rivaroxaban 15 mg 07/30/20 09:00 08/01/20 08:19 Rivaroxaban 15 Mg Tab PO 15 mg DAILY MYRANDA Administration Sertraline HCl 50 mg 07/31/20 09:00 08/01/20 08:22 Sertraline Hcl 25 Mg Tab PO 50 mg DAILY MYRANDA Administration Zinc Sulfate 220 mg 07/30/20 09:00 08/01/20 08:19 Zinc Sulfate 220 Mg Cap PO 220 mg DAILY MYRANDA Administration - Exam General Appearance: NAD Eye: PERRL Heart: RRR, no murmur, no gallops, no rubs, normal peripheral pulses Respiratory: CTAB, no wheezes, no rales, no ronchi, normal chest expansion Gastrointestinal: soft, non-tender, non-distended, normal bowel sounds, no palpable masses, no hepatomegaly, no splenomegaly Extremities: no cyanosis, no edema Hosp A/P (1) Pneumonia due to COVID-19 virus Code(s): U07.1 - COVID-19; J12.82 - PNEUMONIA DUE TO CORONAVIRUS DISEASE 2019 Status: Acute (2) Acute respiratory failure with hypoxemia Code(s): J96.01 - ACUTE RESPIRATORY FAILURE WITH HYPOXIA Status: Acute (3) Hypertension Code(s): I10 - ESSENTIAL (PRIMARY) HYPERTENSION Status: Chronic (4) Morbid (severe) obesity due to excess calories Code(s): E66.01 - MORBID (SEVERE) OBESITY DUE TO EXCESS CALORIES Status: Chronic (5) Depression Code(s): F32.9 - MAJOR DEPRESSIVE DISORDER, SINGLE EPISODE, UNSPECIFIED Status: Acute - Plan * Acute respiratory failure with hypoxemia due to COVID pneumonia- Continue D ecadron and Remdesivir * Chronic diastolic heart failure- compensated * HTN- blood pressure is stable * Depression- Stable
[2020-08-01] MEDS: cefTRIAXone\\ROCEPHIN 1 GM in Sodium Chloride 0.9% 100 ML IVPB SCH (21:07)
[2020-08-01] MEDS: Gabapentin 300 MG CAP PO SCH (21:08)
[2020-08-01] MEDS: Meloxicam 15 MG TAB PO SCH (21:09)
[2020-08-02] MEDS: Acetaminophen 500 MG TAB PO PRN (05:42)
[2020-08-02 06:51] LABS: Hemoglobin 11.8 g/dL (12.0-16.0); Mean Corpuscular HGB CONC 30.8 g/dL (32.0-36.0); Mean Corpuscular Hemoglobin 22.6 pg (27.0-31.0); Mean Corpuscular Volume 73.6 fL (78.0-98.0); Mean Platelet Volume 11.4 fL (7.4-10.4); Platelet Count 221 thou/uL (130-400); RBC Distribution Width 15.6 % (11.5-14.5); Red Blood Cell (RBC) Count 5.23 mill/uL (4.20-5.40); White Blood Cell (WBC) Count 7.3 thou/uL (4.8-10.8)
[2020-08-02 07:05] LABS: ALT (SGPT) 59 U/L (8-55); AST (SGOT) 55 U/L (5-34); Albumin 3.4 g/dL (3.5-5.0); Alkaline Phosphatase 81 U/L (40-110); Anion Gap 13 mmol/L (10-20); BUN (Urea Nitrogen) 17 mg/dL (7.0-18.7); Bilirubin, Direct 0.2 mg/dL (0.1-0.3); Bilirubin, Total 0.4 mg/dL (0.2-1.2); Calc. Creatinine Clearance 278 mL/min (70-130); Calcium 8.2 mg/dL (7.8-10.44); Carbon Dioxide 27 mmol/L (22-29); Chloride 105 mmol/L (98-107); Glucose 115 mg/dL (70-105); Potassium 3.4 mmol/L (3.5-5.1); Protein, Total 7.1 g/dL (6.0-8.3); Sodium 142 mmol/L (136-145)
[2020-08-02] MEDS: Cholecalciferol (Vitamin D3) 400 UNITS TAB PO SCH (08:00)
[2020-08-02] MEDS: Calcium Carbonate 600 MG + Vit D TAB PO SCH (08:00)
[2020-08-02] MEDS: Aspirin Chewable 81 MG TAB PO SCH (08:00)
[2020-08-02] MEDS: Zinc Sulfate 220 MG CAP PO SCH (08:00)
[2020-08-02] MEDS: Ascorbic Acid 500 mg Chewable Tablet PO SCH (08:01)
[2020-08-02] MEDS: Amlodipine 10 MG TAB PO SCH (08:01)
[2020-08-02] MEDS: Furosemide 80 MG TAB PO SCH (08:01)
[2020-08-02] MEDS: Lisinopril 10 MG TAB PO SCH (08:01)
[2020-08-02] MEDS: Dexamethasone 4 mg/ml Vial SLOW IVP SCH (08:01)
[2020-08-02 08:19] LABS: Band 1 % (5-11); Eosinophils 2 % (0-10); Lymphocytes 33 % (21-51); MDiff Complete? YES; Macrocytosis SLIGHT = 6-15 cells (100X) (0-5/hpf); Monocytes 7 % (0-10); Neutrophil 54 % (42-75); Platelet Morphology Comment Appears Adequate; Polychromasia SLIGHT = 2-3 cells (100X) (0-2/hpf); Reactive Lymphocytes 3 % (0-10)
[2020-08-02] MEDS: Rivaroxaban 15 MG TAB PO SCH (11:46)
--- NOTE | 2020-08-02 12:13 | PDOC.HOSPP ---
- Subjective Encounter Date: 08/02/20 Encounter Time: 12:11 Subjective: Ms. Rodriguez was seen today in follow-up of COVID pneumonia. She says she is doing well. No complaints. - Objective Vital Signs & Weight: Vital Signs (12 hours) Temp Pulse Resp BP Pulse Ox 08/02/20 11:00 97.6 F 50 L 17 126/84 98 08/02/20 08:20 62 08/02/20 08:01 51 L 08/02/20 08:00 94 L 08/02/20 07:31 97.6 F 51 L 22 H 136/85 94 L 08/02/20 05:08 97.9 F 60 18 167/100 H 98 08/02/20 00:52 98.1 F 60 18 164/103 H 97 Weight Weight 397 lb 9 oz I&O: 08/01/20 08/02/20 08/03/20 06:59 06:59 06:59 Intake Total 1300 1500 Balance 1300 1500 Result Diagrams: 08/02/20 06:06 08/02/20 06:06 Additional Labs: Accuchecks 08/02/20 08/01/20 08/01/20 04:55 19:51 15:56 POC Glucose 141 H 102 H 102 H Hospitalist ROS - Medication Medications: Active Medications Generic Name Dose Route Start Last Admin Trade Name Freq PRN Reason Stop Dose Admin Acetaminophen 1,000 mg 07/29/20 22:25 08/02/20 05:42 Acetaminophen 500 Mg Tab PO 1,000 mg Q6H PRN Administration Mild Pain (1-3) Amlodipine Besylate 10 mg 07/30/20 09:00 08/02/20 08:01 Amlodipine 10 Mg Tab PO 10 mg DAILY MYRANDA Administration Ascorbic Acid 1,000 mg 07/30/20 09:00 08/02/20 08:01 Ascorbic Acid 500 Mg Chewable Tablet PO 1,000 mg DAILY MYRANDA Administration Aspirin 81 mg 07/30/20 09:00 08/02/20 08:00 Aspirin Chewable 81 Mg Tab PO 81 mg DAILY MYRANDA Administration Calcium/Vitamin D 2 tab 07/31/20 09:00 08/02/20 08:00 Calcium Carbonate 600 Mg + Vit D Tab PO 2 tab DAILY MYRANDA Administration Cholecalciferol 400 units 07/30/20 09:00 08/02/20 08:00 Cholecalciferol (Vitamin D3) 400 Units Tab PO 400 units DAILY MYRANDA Administration Dexamethasone 8 mg 07/30/20 09:00 08/02/20 08:01 Dexamethasone 4 Mg/Ml Vial SLOW IVP 8 mg DAILY MYRANDA Administration Furosemide 80 mg 08/01/20 09:00 08/02/20 08:01 Furosemide 80 Mg Tab PO 80 mg DAILY MYRANDA Administration Gabapentin 300 mg 07/30/20 21:00 08/01/20 21:08 Gabapentin 300 Mg Cap PO 300 mg HS MYRANDA Administration Ceftriaxone Sodium 1 gm/ 100 mls @ 200 mls/hr 07/29/20 20:00 08/01/20 21:07 Sodium Chloride IVPB 100 mls Q24HR MYRANDA Administration Remdesivir 100 mg/ Sodium 250 mls @ 250 mls/hr 07/31/20 17:00 08/01/20 17:18 Chloride IV 08/03/20 17:59 250 mls 1700 MYRANDA Administration Insulin Human Lispro 0 units 07/29/20 20:05 07/31/20 17:12 Humalog 300 Units/3 Ml Vial SC 2 unit .MILD SLIDING SCALE PRN Administration Mild Correctional Scale Lisinopril 10 mg 07/30/20 09:00 08/02/20 08:01 Lisinopril 10 Mg Tab PO 10 mg DAILY MYRANDA Administration Meloxicam 15 mg 07/30/20 21:00 08/01/20 21:09 Meloxicam 15 Mg Tab PO 15 mg HS MYRANDA Administration Rivaroxaban 15 mg 07/30/20 09:00 08/02/20 11:46 Rivaroxaban 15 Mg Tab PO 15 mg DAILY MYRANDA Administration Sertraline HCl 50 mg 07/31/20 09:00 08/02/20 08:01 Sertraline Hcl 25 Mg Tab PO 50 mg DAILY MYRANDA Administration Sodium Chloride 10 ml 08/01/20 21:00 08/02/20 08:04 Flush - Normal Saline 10 Ml Syringe IVF 10 ml Q12HR MYRANDA Administration Zinc Sulfate 220 mg 07/30/20 09:00 08/02/20 08:00 Zinc Sulfate 220 Mg Cap PO 220 mg DAILY MYRANDA Administration - Exam Eye: PERRL, anicteric sclera Heart: RRR, no murmur, no gallops, no rubs, normal peripheral pulses Respiratory: no wheezes, no ronchi, rales (at both bases) Gastrointestinal: soft, non-tender, non-distended, normal bowel sounds, no palpable masses, no hepatomegaly Extremities: no cyanosis (pulses are palpable), no edema Hosp A/P (1) Pneumonia due to COVID-19 virus Code(s): U07.1 - COVID-19; J12.82 - PNEUMONIA DUE TO CORONAVIRUS DISEASE 2018 Status: Acute (2) Acute respiratory failure with hypoxemia Code(s): J96.01 - ACUTE RESPIRATORY FAILURE WITH HYPOXIA Status: Acute (3) Hypertension Code(s): I10 - ESSENTIAL (PRIMARY) HYPERTENSION Status: Chronic (4) Morbid (severe) obesity due to excess calories Code(s): E66.01 - MORBID (SEVERE) OBESITY DUE TO EXCESS CALORIES Status: Chron ic (5) Depression Code(s): F32.9 - MAJOR DEPRESSIVE DISORDER, SINGLE EPISODE, UNSPECIFIED Status: Acute - Plan * Acute respiratory failure with hypoxemia due to COVID pneumonia- Continue Decadron and Remdesivir * Chronic diastolic heart failure- compensated * HTN- blood pressure is stable * Depression- Stable * Will assess her oxygen requirements in anticipation of discharge on Friday
[2020-08-02] MEDS: REMDESIVIR (EUA) 100 MG in Sodium Chloride 0.9% 250 ML 230 ML IV SCH (17:46)
[2020-08-02] MEDS: Gabapentin 300 MG CAP PO SCH (20:54)
[2020-08-02] MEDS: cefTRIAXone\\ROCEPHIN 1 GM in Sodium Chloride 0.9% 100 ML IVPB SCH (20:54)
[2020-08-02] MEDS: Meloxicam 15 MG TAB PO SCH (20:56)
[2020-08-03 06:49] LABS: ALT (SGPT) 86 U/L (8-55); AST (SGOT) 60 U/L (5-34); Albumin 3.4 g/dL (3.5-5.0); Alkaline Phosphatase 81 U/L (40-110); Bilirubin, Direct 0.2 mg/dL (0.1-0.3); Bilirubin, Total 0.4 mg/dL (0.2-1.2); Protein, Total 7.3 g/dL (6.0-8.3)
[2020-08-03] MEDS: Aspirin Chewable 81 MG TAB PO SCH (08:26)
[2020-08-03] MEDS: Calcium Carbonate 600 MG + Vit D TAB PO SCH (08:26)
[2020-08-03] MEDS: Dexamethasone 4 mg/ml Vial SLOW IVP SCH (08:27)
[2020-08-03] MEDS: Rivaroxaban 15 MG TAB PO SCH (08:27)
[2020-08-03] MEDS: Ascorbic Acid 500 mg Chewable Tablet PO SCH (08:27)
[2020-08-03] MEDS: Amlodipine 10 MG TAB PO SCH (08:27)
[2020-08-03] MEDS: Furosemide 80 MG TAB PO SCH (08:27)
[2020-08-03] MEDS: Cholecalciferol (Vitamin D3) 400 UNITS TAB PO SCH (08:27)
[2020-08-03] MEDS: Zinc Sulfate 220 MG CAP PO SCH (08:28)
[2020-08-03] MEDS: Lisinopril 10 MG TAB PO SCH (08:28)
[2020-08-03] MEDS: REMDESIVIR (EUA) 100 MG in Sodium Chloride 0.9% 250 ML 230 ML IV SCH (13:52)
--- NOTE | 2020-08-03 16:47 | PDOC.HOSPP ---
- Subjective Encounter Date: 08/03/20 Encounter Time: 16:45 Subjective: Ms. Rodriguez was seen today in follow-up of COVID pneumonia. She is doing well. She has not required oxygen. She is currently receiving her final dose of Remdesivir. - Objective Vital Signs & Weight: Vital Signs (12 hours) Temp Pulse Resp BP Pulse Ox 08/03/20 11:32 98.5 F 58 L 17 135/85 92 L 08/03/20 08:27 48 L 08/03/20 08:00 97 08/03/20 07:33 98.4 F 48 L 16 142/87 H 98 Weight Weight 397 lb 9 oz I&O: 08/02/20 08/03/20 08/04/20 06:59 06:59 06:59 Intake Total 1500 Balance 1500 Result Diagrams: 08/02/20 06:06 08/02/20 06:06 Additional Labs: Accuchecks 08/03/20 08/03/20 08/02/20 11:34 04:49 20:06 POC Glucose 136 H 107 H 139 H 08/02/20 11:23 POC Glucose 105 H Hospitalist ROS - Medication Medications: Active Medications Generic Name Dose Route Start Last Admin Trade Name Freq PRN Reason Stop Dose Admin Acetaminophen 1,000 mg 07/29/20 22:25 08/02/20 05:42 Acetaminophen 500 Mg Tab PO 1,000 mg Q6H PRN Administration Mild Pain (1-3) Amlodipine Besylate 10 mg 07/30/20 09:00 08/03/20 08:27 Amlodipine 10 Mg Tab PO 10 mg DAILY MYRANDA Administration Ascorbic Acid 1,000 mg 07/30/20 09:00 08/03/20 08:27 Ascorbic Acid 500 Mg Chewable Tablet PO 1,000 mg DAILY MYRANDA Administration Aspirin 81 mg 07/30/20 09:00 08/03/20 08:26 Aspirin Chewable 81 Mg Tab PO 81 mg DAILY MYRANDA Administration Calcium/Vitamin D 2 tab 07/31/20 09:00 08/03/20 08:26 Calcium Carbonate 600 Mg + Vit D Tab PO 2 tab DAILY MYRANDA Administration Cholecalciferol 400 units 07/30/20 09:00 08/03/20 08:27 Cholecalciferol (Vitamin D3) 400 Units Tab PO 400 units DAILY MYRANDA Administration Dexamethasone 8 mg 07/30/20 09:00 08/03/20 08:27 Dexamethasone 4 Mg/Ml Vial SLOW IVP 8 mg DAILY MYRANDA Administration Furosemide 80 mg 08/01/20 09:00 08/03/20 08:27 Furosemide 80 Mg Tab PO 80 mg DAILY MYRANDA Administration Gabapentin 300 mg 07/30/20 21:00 08/02/20 20:54 Gabapentin 300 Mg Cap PO 300 mg HS MYRANDA Administration Ceftriaxone Sodium 1 gm/ 100 mls @ 200 mls/hr 07/29/20 20:00 08/02/20 20:54 Sodium Chloride IVPB 100 mls Q24HR MYRANDA Administration Remdesivir 100 mg/ Sodium 250 mls @ 250 mls/hr 07/31/20 17:00 08/03/20 13:52 Chloride IV 08/03/20 17:59 250 mls 1700 MYRANDA Administration Insulin Human Lispro 0 units 07/29/20 20:05 07/31/20 17:12 Humalog 300 Units/3 Ml Vial SC 2 unit .MILD SLIDING SCALE PRN Administration Mild Correctional Scale Lisinopril 10 mg 07/30/20 09:00 08/03/20 08:28 Lisinopril 10 Mg Tab PO 10 mg DAILY MYRANDA Administration Meloxicam 15 mg 07/30/20 21:00 08/02/20 20:56 Meloxicam 15 Mg Tab PO 15 mg HS MYRANDA Administration Rivaroxaban 15 mg 07/30/20 09:00 08/03/20 08:27 Rivaroxaban 15 Mg Tab PO 15 mg DAILY MYRANDA Administration Sertraline HCl 50 mg 07/31/20 09:00 08/03/20 08:27 Sertraline Hcl 25 Mg Tab PO 50 mg DAILY MYRANDA Administration Sodium Chloride 10 ml 08/01/20 21:00 08/03/20 08:28 Flush - Normal Saline 10 Ml Syringe IVF 10 ml Q12HR MYRANDA Administration Zinc Sulfate 220 mg 07/30/20 09:00 08/03/20 08:28 Zinc Sulfate 220 Mg Cap PO 220 mg DAILY MYRANDA Administration - Exam Eye: PERRL, anicteric sclera Heart: RRR, no murmur, no gallops, no rubs, normal peripheral pulses Respiratory: rales (slight rales at the base) Gastrointestinal: soft, non-tender, non-distended, normal bowel sounds, no palp able masses, tender to palpation Extremities: no cyanosis, no edema Hosp A/P (1) Pneumonia due to COVID-19 virus Code(s): U07.1 - COVID-19; J12.82 - PNEUMONIA DUE TO CORONAVIRUS DISEASE 2019 Status: Acute (2) Acute respiratory failure with hypoxemia Code(s): J96.01 - ACUTE RESPIRATORY FAILURE WITH HYPOXIA Status: Acute (3) Hypertension Code(s): I10 - ESSENTIAL (PRIMARY) HYPERTENSION Status: Chronic (4) Morbid (severe) obesity due to excess calories Code(s): E66.01 - MORBID (SEVERE) OBESITY DUE TO EXCESS CALORIES Status: Chronic (5) Depression Code(s): F32.9 - MAJOR DEPRESSIVE DISORDER, SINGLE EPISODE, UNSPECIFIED Status: Acute - Plan * Acute respiratory failure with hypoxemia due to COVID pneumonia- Continue Decadron and Remdesivir * Chronic diastolic heart failure- compensated * HTN- blood pressure is stable * Depression- Stable * She does not require oxygen * Home today
--- NOTE | 2020-08-03 18:02 | PDOC.DS.DS ---
Provider - Provider Date of Admission: 07/30/20 14:47 Date of Discharge: 08/03/20 Admitting Provider: Andre Yao MD Primary Care Physician: [facility] Hospital Course - Hospital Course Hospital Course: Ms. Leiva is a very pleasant 45-year-old female that has a history of chronic diastolic heart failure history of DVT on Xarelto and hypertension. She was having problems with cough and shortness of breath and was found to have the COVID-19 virus. She was initially requiring oxygen and as a result was admitted to the hospital. She was within the timeframe of receiving remdesivir and this was started along with Decadron. She did very well during her hospital stay and was able to be titrated off of oxygen after about 2 days on the remdesivir. She had a low D-dimer during her stay and her inflammatory markers remain low. After she completed her remdesivir course she was able to be discharged home and will have close follow-up in the outpatient setting Resuscitation Status: 07/29/20 20:00 Resuscitation Status Routine Resuscitation Status: FULL: Full Resuscitation - Labs Lab Results: 08/02/20 06:06 08/02/20 06:06 Abnormal Lab Results - Last 48 hrs 08/02/20 06:06: Potassium 3.4 L, AST 55 H, ALT 59 H, Albumin 3.4 L 08/02/20 06:06: Hgb 11.8 L, MCV 73.6 L, MCH 22.6 L, MCHC 30.8 L, RDW 15.6 H, MPV 11.4 H, Band Neuts % (Manual) 1 L 08/03/20 06:06: AST 60 H, ALT 86 H, Albumin 3.4 L Microbiology - Entire Visit 07/29/20 18:21 Venous blood - Left Arm Blood Culture - Preliminary NO GROWTH AT 48 HOURS 07/29/20 18:20 Venous blood - Left Hand Blood Culture - Preliminary NO GROWTH AT 48 HOURS - Physical Exam Vitals: Vital Signs (12 hours) Temp Pulse Resp BP Pulse Ox 08/03/20 11:32 98.5 F 58 L 17 135/85 92 L 08/03/20 08:27 48 L 08/03/20 08:00 97 08/03/20 07:33 98.4 F 48 L 16 142/87 H 98 Weight Weight 397 lb 9 oz Physical Exam: The patient was seen and examined on the day of discharge. Problem - Problem (1) Pneumonia due to COVID-19 virus Code(s): U07.1 - COVID-19; J12.82 - PNEUMONIA DUE TO CORONAVIRUS DISEASE 2019 Status: Acute (2) Acute respiratory failure with hypoxemia Code(s): J96.01 - ACUTE RESPIRATORY FAILURE WITH HYPOXIA Status: Acute (3) Hypertension Code(s): I10 - ESSENTIAL (PRIMARY) HYPERTENSION Status: Chronic (4) Morbid (severe) obesity due to excess calories Code(s): E66.01 - MORBID (SEVERE) OBESITY DUE TO EXCESS CALORIES Status: Chronic (5) Depression Code(s): F32.9 - MAJOR DEPRESSIVE DISORDER, SINGLE EPISODE, UNSPECIFIED Status: Acute Plan - Discharge Medications Prescriptions: Dexamethasone [Decadron] 6 mg PO DAILY #3 tablet Home Medications: Medication Instructions Recorded Confirmed Type Furosemide [Lasix] 80 mg PO DAILY 12/21/13 07/29/20 History Ferrous Sulfate [Feosol] 325 mg PO QID-WM #120 tab 12/23/13 07/29/20 Rx Aspirin Chewable [Aspirin Chewable 81 mg PO DAILY 06/09/18 07/29/20 History Tablet] Lisinopril 10 mg PO DAILY 06/09/18 07/29/20 History FLUoxetine HCl [Fluoxetine HCl] 40 mg PO DAILY 08/29/18 07/29/20 History Acetaminophen 1,000 mg PO PRN PRN 04/27/20 07/29/20 History Amlodipine Besylate [amLODIPine 10 mg PO DAILY 04/27/20 07/29/20 History Besylate] Ascorbic Acid [Vitamin C Chewable 500 mg PO DAILY 04/27/20 07/29/20 History Tablet] Calcium Carbonate/Vitamin D3 1,000 mg PO DAILY 04/27/20 07/29/20 History [Calcium 600-Vit D3 200 Tablet] Gabapentin [Neurontin] 1 cap PO HS 04/27/20 07/29/20 History Meloxicam [Mobic] 1 tab PO HS 04/27/20 07/29/20 History Rivaroxaban [Xarelto] 1 tab PO DAILY 04/27/20 07/29/20 History Sertraline HCl [Zoloft] 50 mg PO DAILY 04/27/20 07/29/20 History Dexamethasone [Decadron] 6 mg PO DAILY #3 tablet 08/03/20 Rx Zinc Sulfate 220 mg PO DAILY cap 08/03/20 Rx Allergies: diphenhydramine HCl [From Benadryl] Allergy (Severe, Verified 07/29/20 21:39) 'SWELLS UP' promethazine [From Phenergan] Allergy (Severe, Verified 07/29/20 21:39) PATIENT CLAIMS SHE 'SWELLS UP WITH ALL THE LISTED MEDICATION ALLERGY Sulfa (Sulfonamide Antibiotics) Allergy (Severe, Verified 07/29/20 21:39) 'SWELLS UP' sulfamethoxazole [From Bactrim] Allergy (Severe, Verified 07/29/20 21:39) trimethoprim [From Bactrim] Allergy (Severe, Verified 07/29/20 21:39) ' SWELLS UP' - Discharge Instructions Activity:: Activity as Tolerated Nourishment:: Heart Healthy Diet - Follow up Plan Referrals: [facility] [Primary Care Provider] - 7 Days Disposition: HOME Quality - Care Measures CORE MEASURES:: N/A
[2020-08-03 18:27] VITALS: BP 126/85; TEMP 98.3
--- NOTE | 2020-08-19 19:05 | EKG ---
Test Reason : Blood Pressure : / mmHG Vent. Rate : 091 BPM Atrial Rate : 091 BPM P-R Int : 176 ms QRS Dur : 106 ms QT Int : 384 ms P-R-T Axes : 021 -40 072 degrees QTc Int : 472 ms Normal sinus rhythm Left axis deviation Minimal voltage criteria for LVH, may be normal variant Abnormal ECG Poor precordial transition Confirmed by DOMINIQUE CAPPS DO ([id number]), videotape editor JUSTYNA PICKENS ([id number]) on 08/19/2020 7:04:46 PM Referred By: Confirmed By:DOMINIQUE CAPPS DO
== END 2020-08-03 18:16 | disposition home or self-care (01) | DRG 177 ==
LOC: ERS 17:29 → T4-B 19:02 → OBSVTOIN 07-30 14:47
PROVIDERS: ADMIT Student in an Organized Health Care Education/Training Program; ATTEND Internal Medicine
PROC: XW033E5 Introduction of Remdesivir Anti-infective into Peripheral Vein, Percutaneous Approach, New Technology Group 5 (ICD-10-PCS; principal; 2020-07-30)
PROC: 8E0ZXY6 Isolation (ICD-10-PCS; 2020-07-30)
DX: U07.1 COVID-19 (principal); J96.01 Acute respiratory failure with hypoxia; J12.82 Pneumonia due to coronavirus disease 2019; I50.32 Chronic diastolic (congestive) heart failure; Z68.44 Body mass index [BMI] 60.0-69.9, adult; J44.1 Chronic obstructive pulmonary disease with (acute) exacerbation; J44.0 Chronic obstructive pulmonary disease with (acute) lower respiratory infection; F33.9 Major depressive disorder, recurrent, unspecified; E11.9 Type 2 diabetes mellitus without complications; I11.0 Hypertensive heart disease with heart failure; E87.6 Hypokalemia; D64.9 Anemia, unspecified; F41.9 Anxiety disorder, unspecified; Z86.718 Personal history of other venous thrombosis and embolism; Z86.711 Personal history of pulmonary embolism; Z98.51 Tubal ligation status; Z90.710 Acquired absence of both cervix and uterus; Z87.891 Personal history of nicotine dependence; Z88.2 Allergy status to sulfonamides; Z88.8 Allergy status to other drugs, medicaments and biological substances; Z79.01 Long term (current) use of anticoagulants; Z79.82 Long term (current) use of aspirin; Z79.899 Other long term (current) drug therapy; E66.01 Morbid (severe) obesity due to excess calories
CPT/HCPCS: 0240U; 36415; 36416; 71045; 80048; 80053; 80076; 82550; 82728; 83605; 83735; 84484; 85025; 85379; 86140; 87040; 93005; 96365; 96367; 96375; 96376; G0378; J0456; J0696; J1100; J3490; J7050

== ENCOUNTER 2020-10-24 17:43 | Observation (INO) | payer SELFPAY ==
[2020-10-24 18:20] LABS: #Basophils 0.1 thou/uL (0.0-0.2); #Eosinphils 0.3 thou/uL (0.0-0.7); #Lymphocytes 3.4 thou/uL (1.20-3.40); #Monocytes 0.4 thou/uL (0.11-0.59); #Neutrophils 6.2 thou/uL (1.40-6.50); %Basophils 0.7 % (0.0-1.0); %Eosinophils 2.9 % (0.0-10.0); %Lymphocytes 32.8 % (21.0-51.0); %Monocytes 3.8 % (0.0-10.0); %Neutrophils 59.8 % (42.0-75.0); Hemoglobin 11.2 g/dL (12.0-16.0); Mean Corpuscular HGB CONC 30.1 g/dL (32.0-36.0); Mean Corpuscular Volume 73.3 fL (78.0-98.0); Mean Platelet Volume 9.4 fL (7.4-10.4); Platelet Count 226 thou/uL (130-400); RBC Distribution Width 17.2 % (11.5-14.5); White Blood Cell (WBC) Count 10.3 thou/uL (4.8-10.8)
[2020-10-24 18:45] LABS: Anisocytosis SLIGHT = 6-15 cells (100X) (0-5/hpf); Hypochromia SLIGHT = 6-15 cells (100X) (0-5/hpf); MDiff Complete? YES; Microcytosis SLIGHT = 6-15 cells (100X) (0-5/hpf); Ovalocytes SLIGHT = 2-5 cells (100X) (0-1/hpf); Platelet Morphology Comment Appears Adequate; Polychromasia SLIGHT = 2-3 cells (100X) (0-2/hpf); Target Cells MODERATE= 6-15 cells (100X) (0-1/hpf); Tear Drops SLIGHT = 2-5 cells (100X) (0-1/hpf)
[2020-10-24 18:46] LABS: ALT (SGPT) 11 U/L (8-55); AST (SGOT) 9 U/L (5-34); Albumin 3.8 g/dL (3.5-5.0); Alkaline Phosphatase 77 U/L (40-110); Anion Gap 12 mmol/L (10-20); BUN (Urea Nitrogen) 14 mg/dL (7.0-18.7); Bilirubin, Total 0.3 mg/dL (0.2-1.2); Calc. Creatinine Clearance 0 mL/min (70-130); Carbon Dioxide 27 mmol/L (22-29); Chloride 107 mmol/L (98-107); Globulin 3.2 g/dL (2.4-3.5); Glucose 86 mg/dL (70-105); Potassium 3.6 mmol/L (3.5-5.1); Sodium 142 mmol/L (136-145)
[2020-10-24] MEDS ORDERED: Acetaminophen 500 MG TAB ONE (19:30)
[2020-10-24] MEDS ORDERED: hydrALAZINE 20 MG/ML VIAL SLOW IVP PRN (20:46)
[2020-10-24] MEDS ORDERED: Nitroglycerin 0.4 MG TAB (25 Tab Bottle) SL PRN (20:47)
[2020-10-24] MEDS ORDERED: Morphine 2 MG/ML VIAL SLOW IVP PRN (20:49)
[2020-10-24] MEDS ORDERED: Morphine 2 MG/ML VIAL ONE (20:54)
[2020-10-24] MEDS ORDERED: Ondansetron ODT 4 MG TAB PO PRN (20:57)
[2020-10-24] MEDS ORDERED: Ondansetron PF 4 MG/2 ML Vial IVP PRN (20:57)
[2020-10-24 21:32] LABS: Troponin I Less than 0.010 ng/mL (< 0.028)
[2020-10-24] MEDS ORDERED: Nitroglycerin 0.4mg/Hour PATCH ONE (22:36)
[2020-10-24] MEDS ORDERED: Nitroglycerin 2% Ointment 1 INCH/1 GM Packet ONE (22:37)
[2020-10-25] MEDS ORDERED: HYDROcodone/Acetaminophen 5/325 mg Tablet ONE (00:10)
[2020-10-25 01:23] LABS: Troponin I Less than 0.010 ng/mL (< 0.028)
[2020-10-25] MEDS ORDERED: Lisinopril 10 MG TAB ONE ×2 (02:50→08:19)
[2020-10-25] MEDS ORDERED: Famotidine 20 MG TAB ONE ×2 (02:50→08:19)
[2020-10-25] MEDS ORDERED: hydrALAZINE 20 MG/ML VIAL ONE (02:51)
[2020-10-25] MEDS ORDERED: Acetaminophen 325 MG TAB ONE ×2 (03:47→14:29)
[2020-10-25] MEDS: Acetaminophen 325 MG TAB PO PRN ×3 (03:53→23:43)
[2020-10-25] MEDS: Lisinopril 10 MG TAB PO SCH ×3 (03:54→21:52)
[2020-10-25] MEDS: Famotidine 20 MG TAB PO SCH ×3 (03:55→21:49)
[2020-10-25] MEDS: Atorvastatin Calcium 40 MG TAB PO SCH ×2 (04:12→21:48)
[2020-10-25 04:52] LABS: Anion Gap 13 mmol/L (10-20); BUN (Urea Nitrogen) 18 mg/dL (7.0-18.7); Calc. Creatinine Clearance 0 mL/min (70-130); Calcium 9.4 mg/dL (7.8-10.44); Carbon Dioxide 25 mmol/L (22-29); Cardiac Risk 3.1 (Less than 4.5); Chloride 106 mmol/L (98-107); Cholesterol 170 mg/dl (< 200 Desired); Glucose 91 mg/dL (70-105); HDL Cholesterol 55 mg/dL (>60 Neg Risk); LDL Cholesterol, Calculated 101 mg/dL; Potassium 3.6 mmol/L (3.5-5.1); Sodium 140 mmol/L (136-145); Triglycerides 71 mg/dL (Less than 150)
[2020-10-25 05:16] LABS: #Basophils 0.1 thou/uL (0.0-0.2); #Eosinphils 0.2 thou/uL (0.0-0.7); #Monocytes 0.4 thou/uL (0.11-0.59); #Neutrophils 5.7 thou/uL (1.40-6.50); %Basophils 1.4 % (0.0-1.0); %Eosinophils 2.4 % (0.0-10.0); %Lymphocytes 31.8 % (21.0-51.0); %Monocytes 4.1 % (0.0-10.0); %Neutrophils 60.3 % (42.0-75.0); Hemoglobin 12.3 g/dL (12.0-16.0); Mean Corpuscular HGB CONC 30.6 g/dL (32.0-36.0); Mean Corpuscular Hemoglobin 22.5 pg (27.0-31.0); Mean Corpuscular Volume 73.6 fL (78.0-98.0); Mean Platelet Volume 7.9 fL (7.4-10.4); Platelet Count 209 thou/uL (130-400); RBC Distribution Width 17.5 % (11.5-14.5); Red Blood Cell (RBC) Count 5.45 mill/uL (4.20-5.40); White Blood Cell (WBC) Count 9.4 thou/uL (4.8-10.8)
[2020-10-25 05:22] LABS: SARS-CoV-2 PCR by NAA Not Detected (NotDetected)
[2020-10-25] MEDS ORDERED: Ondansetron ODT 4 MG TAB ONE (06:36)
[2020-10-25] MEDS ORDERED: Nitroglycerin 2% Ointment 1 INCH/1 GM Packet ONE ×2 (06:41→14:29)
[2020-10-25] MEDS: Nitroglycerin 2% Ointment 1 INCH/1 GM Packet TOP SCH ×3 (06:44→22:18)
[2020-10-25] MEDS ORDERED: Enoxaparin Sodium 40 MG/0.4 ML SYRINGE ONE (08:19)
[2020-10-25] MEDS ORDERED: Aspirin Chewable 81 MG TAB ONE (08:19)
[2020-10-25] MEDS ORDERED: Amlodipine 5 MG TAB ONE (08:19)
[2020-10-25] MEDS ORDERED: Furosemide 40 MG TAB ONE (08:19)
[2020-10-25] MEDS: Amlodipine 10 MG TAB PO SCH (08:35)
[2020-10-25] MEDS: Aspirin Chewable 81 MG TAB PO SCH (08:36)
[2020-10-25] MEDS: Enoxaparin Sodium 40 MG/0.4 ML SYRINGE SC SCH (08:40)
[2020-10-25] MEDS ORDERED: Furosemide 40 MG TAB PO SCH (09:00)
[2020-10-25] MEDS ORDERED: hydrALAZINE 25 MG TAB ONE (14:29)
[2020-10-25] MEDS: hydrALAZINE 25 MG TAB PO SCH ×2 (14:34→21:50)
[2020-10-25 15:34] LABS: Bilirubin Negative (Negative); Blood, Urine Negative (Negative); Clarity Clear (Clear); Glucose, Urine (Dipstick) Normal (Negative); Ketone, Urine Negative (Negative); Leukocyte Negative Leu/uL (Negative); Nitrite Negative (Negative); Protein, Urine (Dipstick) Negative (Neg-Trace); Specific Gravity, Urine 1.007 (1.002-1.036); Urobilinogen Normal mg/dL (Less than 2); pH, Urine 6.5 (5.0-9.0)
[2020-10-25] MEDS: Carvedilol 6.25 MG TAB PO SCH (22:18)
[2020-10-25] MEDS: Furosemide 40 MG TAB PO SCH (22:19)
[2020-10-26] MEDS: Nitroglycerin 2% Ointment 1 INCH/1 GM Packet TOP SCH ×3 (06:37→15:50)
[2020-10-26] MEDS: hydrALAZINE 25 MG TAB PO SCH ×3 (07:33→21:05)
[2020-10-26] MEDS: Famotidine 20 MG TAB PO SCH ×2 (07:33→21:04)
[2020-10-26] MEDS: Aspirin Chewable 81 MG TAB PO SCH (07:33)
[2020-10-26] MEDS: Enoxaparin Sodium 40 MG/0.4 ML SYRINGE SC SCH (07:33)
[2020-10-26] MEDS: Ascorbic Acid 500 mg Chewable Tablet PO SCH (07:34)
[2020-10-26] MEDS: Carvedilol 6.25 MG TAB PO SCH ×2 (07:34→16:31)
[2020-10-26] MEDS: Ferrous Sulfate 325 MG TAB PO SCH (07:35)
[2020-10-26] MEDS: Amlodipine 10 MG TAB PO SCH (07:35)
[2020-10-26] MEDS: Lisinopril 10 MG TAB PO SCH ×2 (07:35→21:05)
[2020-10-26] MEDS: Furosemide 40 MG TAB PO SCH ×2 (07:36→21:05)
[2020-10-26] MEDS: Acetaminophen 325 MG TAB PO PRN (07:46)
[2020-10-26] MEDS ORDERED: FLUoxetine HCl 20 MG CAP PO SCH (09:00)
[2020-10-26 10:34] LABS: Anion Gap 12 mmol/L (10-20); BUN (Urea Nitrogen) 13 mg/dL (7.0-18.7); Calc. Creatinine Clearance 281 mL/min (70-130); Calcium 9.3 mg/dL (7.8-10.44); Carbon Dioxide 29 mmol/L (22-29); Chloride 103 mmol/L (98-107); Glucose 121 mg/dL (70-105); Potassium 3.7 mmol/L (3.5-5.1); Sodium 140 mmol/L (136-145)
[2020-10-26] MEDS: Atorvastatin Calcium 40 MG TAB PO SCH (21:04)
[2020-10-26 23:09] VITALS: BMI 66.6
[2020-10-27] MEDS: Acetaminophen 325 MG TAB PO PRN (03:37)
[2020-10-27 05:46] LABS: Anion Gap 14 mmol/L (10-20); BUN (Urea Nitrogen) 15 mg/dL (7.0-18.7); Calc. Creatinine Clearance 287 mL/min (70-130); Calcium 8.9 mg/dL (7.8-10.44); Carbon Dioxide 25 mmol/L (22-29); Chloride 103 mmol/L (98-107); Glucose 117 mg/dL (70-105); Potassium 3.3 mmol/L (3.5-5.1); Sodium 139 mmol/L (136-145)
[2020-10-27 06:37] LABS: INR-International Normal Ratio 1.1; Prothrombin Time 13.9 sec (12.0-14.7)
[2020-10-27 06:38] LABS: PTT 29.7 sec (22.9-36.1)
[2020-10-27 06:39] LABS: D-Dimer Test 1.53 *mcg/mL (0.27-0.43)
[2020-10-27] MEDS: Lisinopril 10 MG TAB PO SCH (08:34)
[2020-10-27] MEDS: Ferrous Sulfate 325 MG TAB PO SCH (08:34)
[2020-10-27] MEDS: Carvedilol 6.25 MG TAB PO SCH ×2 (08:35→08:59)
[2020-10-27] MEDS: Ascorbic Acid 500 mg Chewable Tablet PO SCH (08:35)
[2020-10-27] MEDS: Furosemide 40 MG TAB PO SCH (08:35)
[2020-10-27] MEDS: Famotidine 20 MG TAB PO SCH (08:36)
[2020-10-27] MEDS: Aspirin Chewable 81 MG TAB PO SCH (08:36)
[2020-10-27] MEDS: hydrALAZINE 25 MG TAB PO SCH (08:36)
[2020-10-27] MEDS: Amlodipine 10 MG TAB PO SCH (08:36)
[2020-10-27 08:45] VITALS: BP 130/61; TEMP 98.4
[2020-10-27] MEDS ORDERED: Rivaroxaban 10 MG TAB PO SCH (09:00)
[2020-10-27 16:34] LABS: Factor VIII Test 226.2 % ACTIVE (56-157)
[2020-10-27 17:30] LABS: Protein C Activity 136 % (78-152)
[2020-10-27 18:12] LABS: Cardiolipin IgG Ab 1.7 GPL-U/mL (<10 Negative); Cardiolipin IgM Ab Less than 0.8 MPL-U/mL (<10 Negative); EliA APS New Method **** NEW METHOD ****
[2020-10-30 14:46] LABS: HEX PHOS LA Tube 1 40.2 SEC; HEX PHOS LA Tube 2 38.1 SEC; Hexagonal Phospholipid Neut 2.1 SEC (0-8.0)
[2020-11-14 13:39] LABS: Activated Protein C Resistance 2.8 ratio (.)
== END 2020-10-27 11:12 | disposition home or self-care (01) ==
LOC: ERS 17:43 → ERHOLD 20:14 → 2SW 10-25 19:23
PROVIDERS: ADMIT Student in an Organized Health Care Education/Training Program; ATTEND Hospitalist
DX: R07.89 Other chest pain (principal); J96.01 Acute respiratory failure with hypoxia; M79.605 Pain in left leg; I11.0 Hypertensive heart disease with heart failure; I50.32 Chronic diastolic (congestive) heart failure; J44.9 Chronic obstructive pulmonary disease, unspecified; F17.210 Nicotine dependence, cigarettes, uncomplicated; D50.9 Iron deficiency anemia, unspecified; E66.01 Morbid (severe) obesity due to excess calories; Z68.44 Body mass index [BMI] 60.0-69.9, adult; Z86.718 Personal history of other venous thrombosis and embolism; Z79.1 Long term (current) use of non-steroidal anti-inflammatories (NSAID); Z79.82 Long term (current) use of aspirin; Z79.899 Other long term (current) drug therapy; Z88.2 Allergy status to sulfonamides; Z88.8 Allergy status to other drugs, medicaments and biological substances; Z20.822 Contact with and (suspected) exposure to COVID-19
CPT/HCPCS: 36415; 71045; 80048; 80053; 80061; 81003; 83021; 83090; 83735; 83880; 84443; 84484; 85025; 85240; 85300; 85303; 85305; 85307; 85379; 85598; 85610; 85730; 86147; 87635; 93005; 93306; 96372; 96374; 96375; 96376; G0378; J0360; J1650; J2270; Q0162; U0003; U0005

== ENCOUNTER 2020-12-24 19:08 | Emergency (ER) | payer SELFPAY ==
[~2020-12-24 19:08] MED LIST changes: -ISOVUE-370 76%-LOCM 1 ML ONE; +Iopamidol-370 76% 500 ML 1 ML ONE
[2020-12-24] MEDS ORDERED: Aspirin Chewable 81 MG TAB ONE (19:21)
[2020-12-24 19:49] LABS: Hemoglobin 11.8 g/dL (12.0-16.0); Mean Corpuscular HGB CONC 32.4 g/dL (32.0-36.0); Mean Corpuscular Hemoglobin 23.8 pg (27.0-31.0); Mean Platelet Volume 11.9 fL (7.4-10.4); Platelet Count 213 thou/uL (130-400); RBC Distribution Width 16.6 % (11.5-14.5); Red Blood Cell (RBC) Count 4.97 mill/uL (4.20-5.40); White Blood Cell (WBC) Count 12.1 thou/uL (4.8-10.8)
[2020-12-24 19:53] LABS: INR-International Normal Ratio 1.2; PTT 33.9 sec (22.9-36.1); Prothrombin Time 15.3 sec (12.0-14.7)
[2020-12-24 19:56] LABS: D-Dimer Test Less than 0.27 *mcg/mL (0.27-0.43)
[2020-12-24 20:05] LABS: ALT (SGPT) 17 U/L (8-55); AST (SGOT) 13 U/L (5-34); Albumin 3.8 g/dL (3.5-5.0); Alkaline Phosphatase 93 U/L (40-110); Anion Gap 16 mmol/L (10-20); BUN (Urea Nitrogen) 15 mg/dL (7.0-18.7); Bilirubin, Total 0.6 mg/dL (0.2-1.2); Calc. Creatinine Clearance 0 mL/min (70-130); Calcium 9.2 mg/dL (7.8-10.44); Carbon Dioxide 21 mmol/L (22-29); Chloride 107 mmol/L (98-107); Globulin 3.9 g/dL (2.4-3.5); Glucose 105 mg/dL (70-105); Potassium 3.4 mmol/L (3.5-5.1); Protein, Total 7.7 g/dL (6.0-8.3); Sodium 141 mmol/L (136-145)
[2020-12-24 20:09] LABS: #Eosinphils 0.3 thou/uL (0.0-0.7); #Lymphocytes 3.3 thou/uL (1.20-3.40); #Monocytes 0.6 thou/uL (0.11-0.59); %Basophils 0.2 % (0.0-1.0); %Eosinophils 2.3 % (0.0-10.0); %Lymphocytes 26.9 % (21.0-51.0); %Monocytes 4.8 % (0.0-10.0); %Neutrophils 65.8 % (42.0-75.0); Mean Corpuscular Volume 73.3 fL (78.0-98.0)
[2020-12-24 22:56] LABS: Troponin I Less than 0.010 ng/mL (< 0.028)
[2020-12-24] MEDS ORDERED: Acetaminophen 500 MG TAB ONE (23:03)
== END 2020-12-24 23:10 | disposition home or self-care (01) ==
LOC: ERS 19:08
DX: R06.00 Dyspnea, unspecified (principal); M79.89 Other specified soft tissue disorders; R07.9 Chest pain, unspecified; I11.0 Hypertensive heart disease with heart failure; I50.9 Heart failure, unspecified; J44.9 Chronic obstructive pulmonary disease, unspecified; E66.9 Obesity, unspecified; Z91.14 Patient's other noncompliance with medication regimen; Z79.82 Long term (current) use of aspirin; Z79.899 Other long term (current) drug therapy; Z87.891 Personal history of nicotine dependence
CPT/HCPCS: 36415; 71045; 71275; 80053; 83880; 84484; 85025; 85379; 85610; 85730; 93005; Q9967

== ENCOUNTER 2021-03-03 22:41 | Emergency (ER) | payer SELFPAY ==
[2021-03-03 23:17] LABS: #Basophils 0.1 thou/uL (0.0-0.2); #Eosinphils 0.3 thou/uL (0.0-0.7); #Lymphocytes 3.1 thou/uL (1.20-3.40); #Monocytes 0.5 thou/uL (0.11-0.59); #Neutrophils 6.4 thou/uL (1.40-6.50); %Basophils 0.8 % (0.0-1.0); %Eosinophils 2.9 % (0.0-10.0); %Lymphocytes 30.2 % (21.0-51.0); %Monocytes 4.7 % (0.0-10.0); %Neutrophils 61.4 % (42.0-75.0); Hemoglobin 11.5 g/dL (12.0-16.0); Mean Corpuscular HGB CONC 33.1 g/dL (32.0-36.0); Mean Corpuscular Hemoglobin 24.6 pg (27.0-31.0); Mean Corpuscular Volume 74.3 fL (78.0-98.0); Mean Platelet Volume 11.9 fL (7.4-10.4); Platelet Count 188 thou/uL (130-400); RBC Distribution Width 16.3 % (11.5-14.5); Red Blood Cell (RBC) Count 4.67 mill/uL (4.20-5.40); White Blood Cell (WBC) Count 10.3 thou/uL (4.8-10.8)
[2021-03-03 23:36] LABS: ALT (SGPT) 16 U/L (8-55); AST (SGOT) 13 U/L (5-34); Albumin 3.6 g/dL (3.5-5.0); Alkaline Phosphatase 70 U/L (40-110); Anion Gap 12 mmol/L (10-20); BUN (Urea Nitrogen) 19 mg/dL (7.0-18.7); Bilirubin, Total 0.6 mg/dL (0.2-1.2); Calc. Creatinine Clearance 0 mL/min (70-130); Calcium 9.2 mg/dL (7.8-10.44); Carbon Dioxide 24 mmol/L (22-29); Chloride 107 mmol/L (98-107); Globulin 3.6 g/dL (2.4-3.5); Glucose 105 mg/dL (70-105); Potassium 3.3 mmol/L (3.5-5.1); Protein, Total 7.2 g/dL (6.0-8.3); Sodium 140 mmol/L (136-145)
[2021-03-03] MEDS ORDERED: Ketorolac Tromethamine 30 MG/ML VIAL ONE (23:53)
== END 2021-03-04 00:26 | disposition home or self-care (01) ==
LOC: ERS 22:41
DX: R07.9 Chest pain, unspecified (principal); Z79.899 Other long term (current) drug therapy; Z79.82 Long term (current) use of aspirin; Z79.84 Long term (current) use of oral hypoglycemic drugs; I11.0 Hypertensive heart disease with heart failure; I50.9 Heart failure, unspecified; E66.9 Obesity, unspecified; J44.9 Chronic obstructive pulmonary disease, unspecified; E11.9 Type 2 diabetes mellitus without complications
CPT/HCPCS: 36415; 71045; 80053; 83880; 84484; 85025; 93005; 96372; J1885

== ENCOUNTER 2021-05-19 13:24 | Emergency (ER) | payer SELFPAY ==
[2021-05-19] MEDS ORDERED: HYDROcodone/Acetaminophen 10/325 mg Tablet ONE (13:49)
== END 2021-05-19 14:45 | disposition home or self-care (01) ==
LOC: ERS 13:24
DX: M25.562 Pain in left knee (principal); M25.462 Effusion, left knee; J44.9 Chronic obstructive pulmonary disease, unspecified; E11.9 Type 2 diabetes mellitus without complications; I11.0 Hypertensive heart disease with heart failure; I50.9 Heart failure, unspecified; E66.9 Obesity, unspecified; D64.9 Anemia, unspecified; Z79.01 Long term (current) use of anticoagulants; Z79.82 Long term (current) use of aspirin; Z79.899 Other long term (current) drug therapy

== ENCOUNTER 2021-06-30 08:54 | Inpatient (IN) | payer SELFPAY ==
[2021-06-30 10:35] LABS: #Basophils 0.1 thou/uL (0.0-0.2); #Eosinphils 0.3 thou/uL (0.0-0.7); #Lymphocytes 2.8 thou/uL (1.20-3.40); #Monocytes 0.4 thou/uL (0.11-0.59); #Neutrophils 5.7 thou/uL (1.40-6.50); %Basophils 0.5 % (0.0-1.0); %Eosinophils 2.9 % (0.0-10.0); %Lymphocytes 30.4 % (21.0-51.0); %Neutrophils 62.2 % (42.0-75.0); Hemoglobin 12.6 g/dL (12.0-16.0); Mean Corpuscular HGB CONC 31.7 g/dL (32.0-36.0); Mean Corpuscular Hemoglobin 24.2 pg (27.0-31.0); Mean Corpuscular Volume 76.4 fL (78.0-98.0); Platelet Count 206 thou/uL (130-400); RBC Distribution Width 16.3 % (11.5-14.5); Red Blood Cell (RBC) Count 5.21 mill/uL (4.20-5.40); White Blood Cell (WBC) Count 9.2 thou/uL (4.8-10.8)
[2021-06-30 10:49] LABS: ALT (SGPT) 21 U/L (8-55); AST (SGOT) 16 U/L (5-34); Albumin 3.7 g/dL (3.5-5.0); Alkaline Phosphatase 92 U/L (40-110); Anion Gap 14 mmol/L (10-20); BUN (Urea Nitrogen) 17 mg/dL (7.0-18.7); Bilirubin, Total 0.6 mg/dL (0.2-1.2); Calc. Creatinine Clearance 0 mL/min (70-130); Calcium 9.2 mg/dL (7.8-10.44); Carbon Dioxide 23 mmol/L (22-29); Chloride 108 mmol/L (98-107); Globulin 3.9 g/dL (2.4-3.5); Glucose 96 mg/dL (70-105); Potassium 3.7 mmol/L (3.5-5.1); Protein, Total 7.6 g/dL (6.0-8.3); Sodium 141 mmol/L (136-145)
[2021-06-30] MEDS ORDERED: Ondansetron ODT 4 MG TAB PO PRN (11:25)
[2021-06-30] MEDS ORDERED: Nitroglycerin 0.4 MG TAB (25 Tab Bottle) SL PRN (11:26)
[2021-06-30] MEDS ORDERED: HumaLOG 300 UNITS/3 ML VIAL SC PRN ×2 (11:29)
[2021-06-30] MEDS ORDERED: Dextrose 5% in Water 1,000 ML IV PRN (11:29)
[2021-06-30] MEDS ORDERED: Dextrose 50% Abboject 50 ML SYRINGE SLOW IVP PRN (11:29)
[2021-06-30] MEDS ORDERED: hydrALAZINE 20 MG/ML VIAL SLOW IVP PRN (11:30)
[2021-06-30] MEDS ORDERED: Nitroglycerin 2% Ointment 1 INCH/1 GM Packet ONE (11:32)
[2021-06-30] MEDS ORDERED: Aspirin Chewable 81 MG TAB PO SCH (11:45)
[2021-06-30] MEDS ORDERED: hydrALAZINE 20 MG/ML VIAL ONE (12:00)
[2021-06-30] MEDS ORDERED: Aspirin Chewable 81 MG TAB ONE (12:08)
[2021-06-30 14:08] VITALS: BMI 65.6
[2021-06-30] MEDS: Acetaminophen 325 MG TAB PO PRN ×2 (15:25→19:52)
[2021-06-30] MEDS: Nitroglycerin 2% Ointment 1 INCH/1 GM Packet TOP SCH ×2 (15:26→20:32)
[2021-06-30 18:08] LABS: Troponin I 0.015 ng/mL (< 0.028)
[2021-07-01] MEDS: Acetaminophen 325 MG TAB PO PRN ×4 (02:27→23:56)
[2021-07-01 05:47] LABS: #Basophils 0.1 thou/uL (0.0-0.2); #Eosinphils 0.2 thou/uL (0.0-0.7); #Lymphocytes 2.6 thou/uL (1.20-3.40); #Monocytes 0.4 thou/uL (0.11-0.59); #Neutrophils 4.5 thou/uL (1.40-6.50); %Basophils 0.9 % (0.0-1.0); %Eosinophils 3.1 % (0.0-10.0); %Lymphocytes 33.1 % (21.0-51.0); %Monocytes 4.6 % (0.0-10.0); %Neutrophils 58.3 % (42.0-75.0); Hemoglobin 11.2 g/dL (12.0-16.0); Mean Corpuscular Hemoglobin 23.7 pg (27.0-31.0); Mean Corpuscular Volume 76.5 fL (78.0-98.0); Mean Platelet Volume 11.4 fL (7.4-10.4); Platelet Count 192 thou/uL (130-400); RBC Distribution Width 16.2 % (11.5-14.5); Red Blood Cell (RBC) Count 4.73 mill/uL (4.20-5.40); White Blood Cell (WBC) Count 7.7 thou/uL (4.8-10.8)
[2021-07-01] MEDS: Nitroglycerin 2% Ointment 1 INCH/1 GM Packet TOP SCH ×3 (05:49→22:46)
[2021-07-01 06:08] LABS: Anion Gap 11 mmol/L (10-20); BUN (Urea Nitrogen) 17 mg/dL (7.0-18.7); Calc. Creatinine Clearance 318 mL/min (70-130); Calcium 8.8 mg/dL (7.8-10.44); Carbon Dioxide 25 mmol/L (22-29); Cardiac Risk 3.8 (Less than 4.5); Chloride 108 mmol/L (98-107); Cholesterol 163 mg/dl (< 200 Desired); Glucose 104 mg/dL (70-105); HDL Cholesterol 43 mg/dL (>60 Neg Risk); LDL Cholesterol, Calculated 108 mg/dL; Potassium 3.5 mmol/L (3.5-5.1); Sodium 140 mmol/L (136-145); Triglycerides 62 mg/dL (Less than 150)
[2021-07-01] MEDS ORDERED: Regadenoson 0.4 MG/5 ML SYRINGE ONE (08:23)
[2021-07-01] MEDS: Aspirin Chewable 81 MG TAB PO SCH (11:55)
[2021-07-01 14:16] LABS: SARS-CoV-2 PCR by NAA Not Detected (NotDetected)
[2021-07-01] MEDS ORDERED: Amlodipine 10 MG TAB PO SCH (14:30)
[2021-07-01] MEDS ORDERED: Rivaroxaban 15 MG TAB PO SCH (15:30)
[2021-07-01] MEDS ORDERED: Gabapentin 300 MG CAP PO SCH (21:00)
[2021-07-02] MEDS ORDERED: Ibuprofen 200 MG TAB PO SCH (00:15)
[2021-07-02] MEDS: Nitroglycerin 2% Ointment 1 INCH/1 GM Packet TOP SCH (04:20)
[2021-07-02 05:21] LABS: Iron 32 ug/dL (50-170); Iron Binding Capacity, Total 286 mcg/dL (265-497); Transferrin, Serum 229 mg/dL (180-382)
[2021-07-02] MEDS ORDERED: Rivaroxaban 15 MG TAB PO SCH (08:00)
[2021-07-02] MEDS: Aspirin Chewable 81 MG TAB PO SCH (08:32)
[2021-07-02] MEDS: Acetaminophen 325 MG TAB PO PRN (08:34)
[2021-07-02 08:43] VITALS: TEMP 97.5
[2021-07-02] MEDS ORDERED: Amlodipine 10 MG TAB PO SCH (09:00)
[2021-07-02] MEDS ORDERED: Cholecalciferol 1,000 UNITS (25 MCG) TAB PO SCH (09:00)
[2021-07-02] MEDS ORDERED: Ferrous Sulfate 325 MG TAB PO SCH ×2 (09:15→17:00)
[2021-07-02 12:32] VITALS: BP 135/74
== END 2021-07-02 13:02 | disposition home or self-care (01) | DRG 313 ==
LOC: ERS 08:54 → 2SW 11:18 → OBSVTOIN 07-01 15:00
PROVIDERS: ADMIT Internal Medicine; ATTEND Internal Medicine
DX: R07.89 Other chest pain (principal); I50.32 Chronic diastolic (congestive) heart failure; Z68.44 Body mass index [BMI] 60.0-69.9, adult; J44.9 Chronic obstructive pulmonary disease, unspecified; E66.01 Morbid (severe) obesity due to excess calories; I45.10 Unspecified right bundle-branch block; Z66 Do not resuscitate; I11.0 Hypertensive heart disease with heart failure; F41.9 Anxiety disorder, unspecified; F32.A Depression, unspecified; F17.210 Nicotine dependence, cigarettes, uncomplicated; I16.0 Hypertensive urgency; R00.1 Bradycardia, unspecified; E11.42 Type 2 diabetes mellitus with diabetic polyneuropathy; D64.9 Anemia, unspecified; E55.9 Vitamin D deficiency, unspecified; D50.9 Iron deficiency anemia, unspecified; Z20.822 Contact with and (suspected) exposure to COVID-19; Z86.718 Personal history of other venous thrombosis and embolism; Z79.01 Long term (current) use of anticoagulants; Z88.8 Allergy status to other drugs, medicaments and biological substances; Z88.2 Allergy status to sulfonamides; Z79.82 Long term (current) use of aspirin; Z79.899 Other long term (current) drug therapy; Z98.51 Tubal ligation status; Z90.49 Acquired absence of other specified parts of digestive tract
CPT/HCPCS: 36415; 36416; 70450; 71045; 78452; 80048; 80053; 80061; 82728; 83540; 83550; 83735; 83880; 84443; 84466; 84484; 85025; 93005; 93017; 94760; 96374; A9500; G0378; J0360; J2785; U0003; U0005

== ENCOUNTER 2021-07-21 20:15 | Emergency (ER) | payer SELFPAY ==
[2021-07-21] MEDS ORDERED: Ketorolac Tromethamine 30 MG/ML VIAL ONE (22:37)
== END 2021-07-21 23:17 | disposition home or self-care (01) ==
LOC: ERS 20:15
DX: S90.32XA Contusion of left foot, initial encounter (principal); W22.8XXA Striking against or struck by other objects, initial encounter
CPT/HCPCS: 96374; J1885

== ENCOUNTER 2021-11-14 21:14 | Emergency (ER) | payer SELFPAY ==
[2021-11-14 22:39] LABS: #Eosinphils 0.3 thou/uL (0.0-0.7); #Monocytes 0.3 thou/uL (0.11-0.59); #Neutrophils 6.5 thou/uL (1.40-6.50); %Basophils 0.3 % (0.0-1.0); %Eosinophils 3.1 % (0.0-10.0); %Lymphocytes 29.6 % (21.0-51.0); %Monocytes 3.3 % (0.0-10.0); %Neutrophils 63.7 % (42.0-75.0); Hemoglobin 12.5 g/dL (12.0-16.0); Mean Corpuscular HGB CONC 30.8 g/dL (32.0-36.0); Mean Corpuscular Hemoglobin 24.8 pg (27.0-31.0); Mean Corpuscular Volume 80.4 fL (78.0-98.0); Mean Platelet Volume 10.5 fL (7.4-10.4); Platelet Count 207 thou/uL (130-400); Red Blood Cell (RBC) Count 5.02 mill/uL (4.20-5.40); White Blood Cell (WBC) Count 10.3 thou/uL (4.8-10.8)
[2021-11-14 22:45] LABS: BHCG - Serum Negative (NEGATIVE); Pregs Control Background? CLEAR/WHITE (CLR/WHITE); Pregs Control Bar Appear? YES (CONTROL BAR)
[2021-11-14 22:47] LABS: INR-International Normal Ratio 0.9; PTT 30.8 sec (22.9-36.1); Prothrombin Time 12.7 sec (12.0-14.7)
[2021-11-14 23:11] LABS: ALT (SGPT) 10 U/L (8-55); AST (SGOT) 11 U/L (5-34); Acetaminophen Less than 10.0 mcg/mL (10.0-30.0); Albumin 3.6 g/dL (3.5-5.0); Alcohol Less than 10 mg/dL (Less than 10); Alkaline Phosphatase 71 U/L (40-110); Anion Gap 12 mmol/L (10-20); BUN (Urea Nitrogen) 12 mg/dL (7.0-18.7); Bilirubin, Total 0.4 mg/dL (0.2-1.2); Calc. Creatinine Clearance 0 mL/min (70-130); Calcium 9.1 mg/dL (7.8-10.44); Carbon Dioxide 24 mmol/L (22-29); Chloride 106 mmol/L (98-107); Globulin 3.7 g/dL (2.4-3.5); Glucose 127 mg/dL (70-105); Potassium 3.5 mmol/L (3.5-5.1); Protein, Total 7.3 g/dL (6.0-8.3); Salicylate Less than 8.0 mg/dL (15.0-30.0); Sodium 138 mmol/L (136-145)
[2021-11-15 01:35] LABS: Bilirubin Negative (Negative); Blood, Urine 2+ (Negative); Clarity Clear (Clear); Glucose, Urine (Dipstick) Normal (Negative); Ketone, Urine Negative (Negative); Leukocyte 500 Leu/uL (Negative); Mucous/LPF Rare LPF (<2+); Nitrite Negative (Negative); Protein, Urine (Dipstick) 20 mg/dL (Neg-Trace); Squamous Epithelial 0-3 HPF (0-3); Urobilinogen Normal mg/dL (Less than 2)
[2021-11-15 01:42] LABS: Bacteria/HPF None Seen HPF (None Seen)
[2021-11-15 02:27] LABS: Troponin I Less than 0.010 ng/mL (< 0.028)
== END 2021-11-15 03:26 | disposition home or self-care (01) ==
LOC: ERS 21:14
DX: N39.0 Urinary tract infection, site not specified (principal); R07.89 Other chest pain; I11.0 Hypertensive heart disease with heart failure; I50.9 Heart failure, unspecified; J44.9 Chronic obstructive pulmonary disease, unspecified; E11.9 Type 2 diabetes mellitus without complications; F17.210 Nicotine dependence, cigarettes, uncomplicated; Z79.899 Other long term (current) drug therapy
CPT/HCPCS: 36415; 36416; 71275; 80053; 80307; 81003; 81015; 83690; 84484; 84703; 85025; 85610; 85730; 93005

== ENCOUNTER 2022-01-23 15:03 | Emergency (ER) | payer SELFPAY ==
[2022-01-23 16:40] LABS: #Eosinphils 0.2 thou/uL (0.0-0.7); #Lymphocytes 1.9 thou/uL (1.20-3.40); #Monocytes 0.5 thou/uL (0.11-0.59); #Neutrophils 3.9 thou/uL (1.40-6.50); %Basophils 0.2 % (0.0-1.0); %Eosinophils 3.1 % (0.0-10.0); %Lymphocytes 29.5 % (21.0-51.0); %Monocytes 7.2 % (0.0-10.0); Mean Corpuscular HGB CONC 30.9 g/dL (32.0-36.0); Mean Platelet Volume 10.7 fL (7.4-10.4); Platelet Count 175 thou/uL (130-400); RBC Distribution Width 15.1 % (11.5-14.5); White Blood Cell (WBC) Count 6.5 thou/uL (4.8-10.8)
[2022-01-23] MEDS ORDERED: HYDROcodone/Acetaminophen 5/325 mg Tablet ONE (16:47)
[2022-01-23 17:10] LABS: ALT (SGPT) 15 U/L (8-55); AST (SGOT) 15 U/L (5-34); Albumin 3.5 g/dL (3.5-5.0); Alkaline Phosphatase 76 U/L (40-110); BUN (Urea Nitrogen) 8 mg/dL (7.0-18.7); Bilirubin, Total 0.4 mg/dL (0.2-1.2); Calc. Creatinine Clearance 0 mL/min (70-130); Calcium 8.9 mg/dL (7.8-10.44); Carbon Dioxide 28 mmol/L (22-29); Estimated GFR 96; Globulin 3.7 g/dL (2.4-3.5); Glucose 97 mg/dL (70-105); Protein, Total 7.2 g/dL (6.0-8.3)
[2022-01-23 17:14] LABS: Chloride 107 mmol/L (98-107); Potassium 3.6 mmol/L (3.5-5.1); Sodium 143 mmol/L (136-145)
[2022-01-23 17:34] LABS: Anion Gap 12 mmol/L (10-20)
== END 2022-01-23 17:35 | disposition home or self-care (01) ==
LOC: ERS 15:03
DX: U07.1 COVID-19 (principal); J44.9 Chronic obstructive pulmonary disease, unspecified; I11.0 Hypertensive heart disease with heart failure; I50.9 Heart failure, unspecified; E11.9 Type 2 diabetes mellitus without complications; F17.210 Nicotine dependence, cigarettes, uncomplicated; Z79.84 Long term (current) use of oral hypoglycemic drugs; Z79.899 Other long term (current) drug therapy
CPT/HCPCS: 36415; 71045; 80053; 83880; 84484; 85025; 93005; U0003; U0005

== ENCOUNTER 2022-06-26 13:54 | Emergency (ER) | payer SELFPAY ==
[2022-06-26 14:37] LABS: #Basophils 0.1 thou/uL (0.0-0.2); #Eosinphils 0.4 thou/uL (0.0-0.7); #Lymphocytes 3.3 thou/uL (1.20-3.40); #Monocytes 0.4 thou/uL (0.11-0.59); #Neutrophils 6.7 thou/uL (1.40-6.50); %Basophils 0.6 % (0.0-1.0); %Eosinophils 3.4 % (0.0-10.0); %Lymphocytes 30.3 % (21.0-51.0); %Monocytes 3.9 % (0.0-10.0); %Neutrophils 61.9 % (42.0-75.0); Hemoglobin 13.5 g/dL (12.0-16.0); Mean Corpuscular HGB CONC 30.8 g/dL (32.0-36.0); Mean Corpuscular Volume 81.3 fl (78.0-98.0); Platelet Count 198 10x3/uL (130-400); RBC Distribution Width 14.9 % (11.5-14.5); Red Blood Cell (RBC) Count 5.39 mill/uL (4.20-5.40); White Blood Cell (WBC) Count 10.8 10x3/uL (4.8-10.8)
[2022-06-26 14:57] LABS: ALT (SGPT) 25 U/L (8-55); AST (SGOT) 18 U/L (5-34); Albumin 3.9 g/dL (3.5-5.0); Alkaline Phosphatase 88 U/L (40-110); Anion Gap 15 mmol/L (10-20); BUN (Urea Nitrogen) 12 mg/dL (7.0-18.7); Bilirubin, Total 0.3 mg/dL (0.2-1.2); Calc. Creatinine Clearance 0 mL/min (70-130); Calcium 9.1 mg/dL (7.8-10.44); Carbon Dioxide 22 mmol/L (22-29); Chloride 107 mmol/L (98-107); Estimated GFR 89; Glucose 91 mg/dL (70-105); Potassium 3.8 mmol/L (3.5-5.1); Protein, Total 7.9 g/dL (6.0-8.3); Sodium 140 mmol/L (136-145)
[2022-06-26 16:18] LABS: BHCG - Serum Negative (NEGATIVE); Pregs Control Background? CLEAR/WHITE (CLR/WHITE); Pregs Control Bar Appear? YES (CONTROL BAR)
== END 2022-06-26 14:34 | disposition left against medical advice (07) ==
LOC: ERS 13:54
DX: Z53.21 Procedure and treatment not carried out due to patient leaving prior to being seen by health care provider (principal)
CPT/HCPCS: 36415; 71045; 80053; 84484; 84703; 85025; 93005

== ENCOUNTER 2022-09-23 11:52 | Emergency (ER) | payer SELFPAY ==
[2022-09-23] MEDS ORDERED: HYDROcodone/Acetaminophen 10/325 mg Tablet ONE (12:15)
[2022-09-23] MEDS ORDERED: Rivaroxaban 15 MG TAB PO SCH (12:45)
== END 2022-09-23 13:50 | disposition home or self-care (01) ==
LOC: ERS 11:52
DX: M79.605 Pain in left leg (principal); I11.0 Hypertensive heart disease with heart failure; I50.9 Heart failure, unspecified; J44.9 Chronic obstructive pulmonary disease, unspecified; E11.9 Type 2 diabetes mellitus without complications; F17.210 Nicotine dependence, cigarettes, uncomplicated; Z79.899 Other long term (current) drug therapy; Z79.82 Long term (current) use of aspirin

== ENCOUNTER 2023-05-03 18:35 | Emergency (ER) | payer SELFPAY ==
[2023-05-03 19:52] LABS: #Basophils 0.1 thou/uL (0.0-0.2); #Eosinphils 0.3 thou/uL (0.0-0.7); #Monocytes 0.7 thou/uL (0.11-0.59); #Neutrophils 9.1 thou/uL (1.40-6.50); %Basophils 0.4 % (0.0-1.0); %Lymphocytes 25.6 % (21.0-51.0); %Monocytes 5.1 % (0.0-10.0); %Neutrophils 66.7 % (42.0-75.0); Hemoglobin 12.1 g/dL (12.0-16.0); Mean Corpuscular HGB CONC 31.8 g/dL (32.0-36.0); Mean Corpuscular Hemoglobin 23.3 pg (27.0-31.0); Mean Corpuscular Volume 73.1 fl (78.0-98.0); Mean Platelet Volume 11.4 fL (7.4-10.4); Platelet Count 267 10x3/uL (130-400); RBC Distribution Width 18.3 % (11.5-14.5); White Blood Cell (WBC) Count 13.6 10x3/uL (4.8-10.8)
[2023-05-03 19:57] LABS: Amphetamine Not Detected (NotDetected); Barbiturates Screen Not Detected (NotDetected); Benzodiazepine Screen Not Detected (NotDetected); Cocaine Metabolite Screen Not Detected (NotDetected); Methadone Not Detected (NotDetected); Methamphetamine Not Detected (NotDetected); Opiate Screen Not Detected (NotDetected); Oxycodone Screen Not Detected (NotDetected); Phencyclidine (PCP) Not Detected (NotDetected); THC/Cannabinoid Screen Not Detected (NotDetected); Tricyclic Screen Not Detected (NotDetected)
[2023-05-03 20:04] LABS: Bacteria/HPF None Seen HPF (None Seen); Bilirubin Negative (Negative); Blood, Urine Negative (Negative); CAUTI Indications for Culture Alt mental st,lethar; Clarity Clear (Clear); Glucose, Urine (Dipstick) Normal (Negative); Ketone, Urine Negative (Negative); Leukocyte Negative Leu/uL (Negative); Nitrite Negative (Negative); Protein, Urine (Dipstick) Negative (Neg-Trace); RBC/HPF 0-3 HPF (0-3); Specific Gravity, Urine 1.007 (1.002-1.036); Squamous Epithelial None Seen HPF (0-3); Urobilinogen Normal mg/dL (Less than 2); WBC/HPF 0-3 HPF (0-3); pH, Urine 6.5 (5.0-9.0)
[2023-05-03 20:08] LABS: Urine Culture Reflex No No
[2023-05-03 20:15] LABS: ALT (SGPT) 15 U/L (8-55); AST (SGOT) 18 U/L (5-34); Albumin 4.3 g/dL (3.5-5.0); Alkaline Phosphatase 86 U/L (40-110); Anion Gap 16 mmol/L (10-20); BUN (Urea Nitrogen) 15 mg/dL (7.0-18.7); Bilirubin, Total 0.5 mg/dL (0.2-1.2); CK (CPK) 99 U/L (29-168); Calc. Creatinine Clearance 0 mL/min (70-130); Calcium 9.4 mg/dL (7.8-10.44); Carbon Dioxide 24 mmol/L (22-29); Chloride 102 mmol/L (98-107); Estimated GFR 81; Globulin 3.8 g/dL (2.4-3.5); Glucose 102 mg/dL (70-105); Lipase 30 U/L (8-78); Potassium 3.5 mmol/L (3.5-5.1); Protein, Total 8.1 g/dL (6.0-8.3); Sodium 138 mmol/L (136-145)
[2023-05-03] MEDS ORDERED: Acetaminophen 500 MG TAB ONE (20:17)
[2023-05-03 20:18] LABS: Troponin I Less than 0.010 ng/mL (< 0.028)
[2023-05-03 20:53] LABS: Anisocytosis SLIGHT = 6-15 cells HPF (0-5); CellaVision Operator ID LAB.JMM; Macrocytosis SLIGHT = 6-15 cells HPF (0-5); Platelet Adequacy Comment Platelets Decreased; Polychromasia SLIGHT = 2-3 cells HPF (0-2)
== END 2023-05-03 21:30 | disposition home or self-care (01) ==
LOC: ERS 18:35
DX: R07.89 Other chest pain (principal); I11.0 Hypertensive heart disease with heart failure; I50.9 Heart failure, unspecified; E11.40 Type 2 diabetes mellitus with diabetic neuropathy, unspecified; J44.9 Chronic obstructive pulmonary disease, unspecified; E78.5 Hyperlipidemia, unspecified; Z87.891 Personal history of nicotine dependence; Z86.718 Personal history of other venous thrombosis and embolism; Z79.4 Long term (current) use of insulin; Z79.82 Long term (current) use of aspirin; Z79.84 Long term (current) use of oral hypoglycemic drugs; Z79.899 Other long term (current) drug therapy
CPT/HCPCS: 36415; 70450; 71045; 80053; 80306; 81001; 82550; 83690; 83880; 84484; 85025; 93005

== ENCOUNTER 2023-08-17 08:58 | Emergency (ER) | payer SELFPAY ==
[2023-08-17 11:11] LABS: SARS-CoV-2 NAA Rapid Test Not Detected (NotDetected)
== END 2023-08-17 11:40 | disposition home or self-care (01) ==
LOC: ERS 08:58
DX: B34.9 Viral infection, unspecified (principal); I11.0 Hypertensive heart disease with heart failure; I50.9 Heart failure, unspecified; E11.9 Type 2 diabetes mellitus without complications; E78.5 Hyperlipidemia, unspecified; F17.200 Nicotine dependence, unspecified, uncomplicated; Z79.84 Long term (current) use of oral hypoglycemic drugs; Z79.899 Other long term (current) drug therapy; Z79.82 Long term (current) use of aspirin
CPT/HCPCS: 87081; 87430; 99283

== ENCOUNTER 2024-05-10 03:16 | Emergency (ER) | payer SELFPAY ==
[2024-05-10] MEDS ORDERED: Morphine 10 MG/ML VIAL ONE (03:41)
== END 2024-05-10 05:24 | disposition home or self-care (01) ==
LOC: ERS 03:16
DX: R29.91 Unspecified symptoms and signs involving the musculoskeletal system (principal); E11.9 Type 2 diabetes mellitus without complications; I11.0 Hypertensive heart disease with heart failure; I50.9 Heart failure, unspecified; F17.210 Nicotine dependence, cigarettes, uncomplicated
CPT/HCPCS: 70450; 96372; J2270

== ENCOUNTER 2024-08-24 14:45 | Emergency (ER) | payer SELFPAY ==
[2024-08-24] MEDS ORDERED: Lidocaine 1% w/Epinephrine 1:100K 20 ML VIAL ONE (15:41)
== END 2024-08-24 16:15 | disposition home or self-care (01) ==
LOC: ERS 14:45
DX: L02.31 Cutaneous abscess of buttock (principal); I11.0 Hypertensive heart disease with heart failure; I50.9 Heart failure, unspecified; J44.9 Chronic obstructive pulmonary disease, unspecified; E11.40 Type 2 diabetes mellitus with diabetic neuropathy, unspecified; F17.210 Nicotine dependence, cigarettes, uncomplicated
CPT/HCPCS: 10060

== ENCOUNTER 2025-01-09 21:22 | Observation (INO) | payer OTHER, SELFPAY ==
[~2025-01-09 21:22] MED LIST changes: -Iopamidol-370 76% 500 ML 1 ML ONE; +Iopamidol-370 76% 500 ML MDV (1 ML CHARGE) ONE
[2025-01-09 22:32] LABS: #Basophils 0.07 10x3/uL (0.0-0.2); #Eosinophils 0.27 10x3/uL (0.0-0.7); #Monocytes 0.67 10x3/uL (0.11-0.59); #Neutrophils 9.27 10x3/uL (1.40-6.50); %Basophils 0.5 % (0.0-1.0); %Eosinophils 1.9 % (0.0-10.0); %Lymphocytes 26.6 % (21.0-51.0); %Monocytes 4.8 % (0.0-10.0); %Neutrophils 65.9 % (42.0-75.0); Hematocrit 32.6 % (36.0-47.0); Hemoglobin 9.6 g/dL (12.0-16.0); Mean Corpuscular Hemoglobin 18.4 pg (27.0-31.0); Mean Corpuscular Volume 62.6 fL (78.0-98.0); Platelet Count 312 10x3/uL (130-400); Red Blood Cell (RBC) Count 5.21 mill/uL (4.20-5.40); White Blood Cell (WBC) Count 14.06 10x3/uL (4.8-10.8)
[2025-01-09 22:38] LABS: Actual Bicarbonate (HCO3v) 20.9 mEq/L (22-28); Base Excess -3.0 mEq/L (-2.0 to +3.0); Calcium, Ionized (venous) 1.17 mmol/L (1.16-1.32); Chloride (VBG) 102 mmol/L (98-106); Hematocrit-VBG 32 % (36.0-47.0); Hemoglobin (Hb) 10.8 g/dL (11.7-16.0); Potassium (VBG) 3.71 mmol/L (3.70-5.30); Sodium 137 mmol/L (133-146)
[2025-01-09 22:48] LABS: Troponin I Less than 0.010 ng/mL (< 0.028)
[2025-01-09 22:58] LABS: ALT (SGPT) 13 U/L (Less than 34); AST (SGOT) 20 U/L (11-34); Albumin 3.7 g/dL (3.1-4.5); Alkaline Phosphatase 83 U/L (40-110); Anion Gap 17 mmol/L (10-20); BUN (Urea Nitrogen) 13 mg/dL (7.0-18.7); Bilirubin, Total 0.5 mg/dL (0.3-1.2); Calc. Creatinine Clearance 0 mL/min (70-130); Calcium 9.5 mg/dL (7.8-10.44); Carbon Dioxide 18 mmol/L (22-29); Chloride 104 mmol/L (98-107); Globulin 4.6 g/dL (2.4-3.5); Glucose 111 mg/dL (70-105); Lipase 24 U/L (8-78); Potassium 3.7 mmol/L (3.5-5.1); Sodium 135 mmol/L (136-145)
[2025-01-10] MEDS ORDERED: Acetaminophen 500 MG TAB ONE (00:37)
[2025-01-10] MEDS ORDERED: Enoxaparin 60 MG (0.6 mL) SYRINGE ONE (00:39)
[2025-01-10] MEDS ORDERED: Dextrose 50% Abboject 50 ML SYRINGE SLOW IVP PRN (00:46)
[2025-01-10] MEDS ORDERED: Melatonin 3 MG TAB PO PRN (00:46)
[2025-01-10] MEDS ORDERED: Ondansetron PF 4 MG/2 ML Vial IVP PRN (00:46)
[2025-01-10] MEDS ORDERED: Glucagon 1 MG/ML KIT IM PRN (00:46)
[2025-01-10] MEDS ORDERED: Nitroglycerin 0.4 MG TAB (25 Tab Bottle) SL PRN (00:56)
[2025-01-10 02:23] VITALS: BMI 65.0
[2025-01-10 02:39] LABS: Hematocrit 31.9 % (36.0-47.0); Hemoglobin 9.4 g/dL (12.0-16.0); Mean Corpuscular Hemoglobin 18.7 pg (27.0-31.0); Mean Corpuscular Volume 63.3 fL (78.0-98.0); Platelet Count 323 10x3/uL (130-400); Red Blood Cell (RBC) Count 5.04 mill/uL (4.20-5.40); White Blood Cell (WBC) Count 14.34 10x3/uL (4.8-10.8)
[2025-01-10 02:43] LABS: Troponin I Less than 0.010 ng/mL (< 0.028)
[2025-01-10] MEDS: Furosemide 40 MG (4 mL) VIAL SLOW IVP SCH (02:56)
[2025-01-10 03:21] LABS: Anisocytosis MODERATE=16-30 cells HPF (0-5); Macrocytosis SLIGHT = 6-15 cells HPF (0-5); Platelet Adequacy Comment Platelets Normal; Polychromasia SLIGHT = 2-3 cells HPF (0-2); Smudge Cells 10.9 %
[2025-01-10 05:55] LABS: Anion Gap 16 mmol/L (10-20); BUN (Urea Nitrogen) 13 mg/dL (7.0-18.7); Calc. Creatinine Clearance 215 mL/min (70-130); Calcium 9.2 mg/dL (7.8-10.44); Carbon Dioxide 18 mmol/L (22-29); Chloride 107 mmol/L (98-107); Glucose 161 mg/dL (70-105); Potassium 3.5 mmol/L (3.5-5.1); Sodium 137 mmol/L (136-145)
[2025-01-10] MEDS: Aspirin Chewable 81 MG TAB PO SCH (10:01)
[2025-01-10] MEDS: Famotidine 20 MG TAB PO SCH (10:01)
[2025-01-10] MEDS: Gabapentin 300 MG CAP PO SCH (21:16)
[2025-01-10] MEDS: Sertraline 100 MG TAB PO SCH (21:16)
[2025-01-11] MEDS: Acetaminophen 325 MG TAB PO PRN (00:29)
[2025-01-11] MEDS: Fioricet 325/50/40 mg Tablet PO SCH (09:28)
[2025-01-11] MEDS: Furosemide 40 MG TAB PO SCH (09:29)
[2025-01-11] MEDS: Lisinopril 20 MG TAB PO SCH (09:29)
[2025-01-11] MEDS: Cholecalciferol 1,000 UNITS (25 MCG) TAB PO SCH (09:29)
[2025-01-11] MEDS: metFORMIN 500 MG TAB PO SCH (09:30)
[2025-01-11 11:26] VITALS: BP 114/55; TEMP 97.5
== END 2025-01-11 13:07 | disposition home or self-care (01) ==
LOC: ERS 21:22 → OBS 01-10 00:50
PROVIDERS: ADMIT Internal Medicine; ATTEND Emergency Medicine
DX: R07.2 Precordial pain (principal); R20.0 Anesthesia of skin; R20.2 Paresthesia of skin; R06.02 Shortness of breath; R11.2 Nausea with vomiting, unspecified; R61 Generalized hyperhidrosis; I11.0 Hypertensive heart disease with heart failure; I50.30 Unspecified diastolic (congestive) heart failure; E11.9 Type 2 diabetes mellitus without complications; E66.01 Morbid (severe) obesity due to excess calories; D72.829 Elevated white blood cell count, unspecified; J44.9 Chronic obstructive pulmonary disease, unspecified; F17.210 Nicotine dependence, cigarettes, uncomplicated; Z68.44 Body mass index [BMI] 60.0-69.9, adult; Z98.51 Tubal ligation status; Z87.59 Personal history of other complications of pregnancy, childbirth and the puerperium; Z86.718 Personal history of other venous thrombosis and embolism; Z90.49 Acquired absence of other specified parts of digestive tract; Z88.8 Allergy status to other drugs, medicaments and biological substances; Z88.2 Allergy status to sulfonamides; Z79.84 Long term (current) use of oral hypoglycemic drugs; Z79.899 Other long term (current) drug therapy
CPT/HCPCS: 36415; 36416; 71045; 71275; 80048; 80053; 82805; 83690; 83880; 84484; 85025; 93005; 96372; 96374; 96375; G0378; J1650; J1940; J2272; Q9967

== ENCOUNTER 2025-04-15 12:06 | Emergency (ER) | payer OTHER | END 2025-04-15 14:18 | disposition home or self-care (01) | LOC: ERS 12:06 | DX: M79.605 Pain in left leg (principal); I11.0 Hypertensive heart disease with heart failure; I50.9 Heart failure, unspecified; E11.40 Type 2 diabetes mellitus with diabetic neuropathy, unspecified; J44.9 Chronic obstructive pulmonary disease, unspecified; F17.210 Nicotine dependence, cigarettes, uncomplicated ==